=== PATIENT | male | born 1980 | race Caucasian/White ===

== ENCOUNTER 2019-11-07 12:54 | Outpatient (CLI) | payer MEDICAID, SELFPAY ==
--- NOTE | 2019-11-07 15:26 | ONCRAD EPV_ITS ---
Radiation Oncology Established Patient Visit Patient: Rico MR#: [id number] : 1980> Age: 39> Sex: Male> Dictated by: Dr. Charlie Olvera Date of Service: 11/07/2019 Referring Physician(s) : Dr. Zana Yeager Diagnosis: C62.12 - Malignant neoplasm of descended left testis, Diagnosed 10/06/2017 (Active) Stage IS, pT1, N0, M0, S1 Radiotherapy to Date: Course: Lyph Nodes Treatment Site: Initial 20Gy Ref. ID: initial 20Gy Energy: 15X/6X Dose/Fx (cGy): 200 #Fx: 10/10 Dose Correction (cGy): 0 Total Dose (cGy): 2,000 Start Date: 08/21/2018 End Date: 09/03/2018 Elapsed Days: 13 Course: Lyph Nodes Treatment Site: Boost 16Gy Ref. 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 He developed recurrence in a solitary periaortic lymph node and received salvage radiotherapy to a total dose of 36Gy completed on 09/13/2018. The patient has had a good response to radiotherapy. He underwent a CT of abdomen/pelvis on 06/21/2019. It showed a continued decrease in size of the left periaortic lymph node now measuring 8.5 mm compared to 10.5 mm in November 2018. There is no evidence of new or progressive lymphadenopathy. Lung nodules in the right middle lobe and right lung base are stable -- surveillance with chest CT was recommended. The patient noticed a painless golfball-sized lump in the left supraclavicular area about a month ago. He has had sore throat, fever, chills and drenching night sweats but denies significant weight loss. He just finished a course of antibiotics. However the left supraclavicular mass persists with no tenderness. He also notes pain in the left axilla. Current Medications: Levothyroxine Sodium. Allergies: Penicillins and Sulfa Antibiotics. Review of Systems: Constitutional - Complains of lack of appetite. Complains of mild fatigue. Complains of fever off and on for over a month. Complains of night sweats which occur every night. Complains of rigors / chills off and on. Denies change in weight. Eyes - Denies blurred vision. ENMT - Complains of dysphagia, mouth dryness off and on and altered taste. Denies ear pain, stomatitis and tinnitus. Neck - Complains of neck pain and decreased range of motion. Integumentary - Denies rash. Cardiovascular - Denies arrhythmias, chest pain and edema. Respiratory - Complains of a moderate cough which is productive. Complains of dyspnea associated with normal activity. Complains of wheezing. Denies hemoptysis. Gastrointestinal - Complains of abdominal pain located in the lower abdomen occasionally. Complains of intermittent constipation. Complains of nausea. Complains of satiety. Complains of vomiting but it is more like dry heaves. Denies diarrhea, heartburn / dyspepsia and melena / GI bleeding. Genitourinary (M) - Complains of nocturia gets up about 1 time per night. Denies dysuria, frequency, hematuria and urgency. Musculoskeletal - Complains of joint pain in the upper back and shoulders. Complains of generalized muscle weakness. Denies bone pain. Has complaints of left upper arm and axilla pain that is in the muscle. Started in his left side rib cage and now the upper arm. Can't lift left arm up over his shouder. Neurologic - Denies dizziness, abnormal gait and headaches. Endocrine - Complains of thyroid disease. Denies diabetes. Hematologic/Lymphatic - Complains of tender or enlarged lymph nodes left side of the neck. Vital Signs: Performed on 11/07/2019 1:24 PM BMI - 41.446 kg/m2 (high), Height - 62.00 in, Weight - 226.6 lbs, Temperature - 98.7 f, Pulse - 73, Respiration - 20, O2 Sat - 94 % (low), Pain - 7 and BP - 114/ 78 mm(hg). Physical Exam: General: Alert and oriented x 3. No acute distress. HEENT: Normocephalic, atraumatic. Extraocular Movements Intact: Pupils Equal, Round, Reactive to Light and Accommodation: Sclerae anicteric. Oral cavity is clear without lesions, masses or ulcers. NECK: A 4-5cm firm left supraclavicular lump with no tenderness. LUNGS: Clear to auscultation bilaterally without rales, rhonchi or wheeze. HEART: Regular rate and rhythm, normal S1 and S2 without murmur, gallop or rub. MUSCULOSKELETAL: No tenderness or percussion pain over the axial skeleton, scapulae or pelvis. ABDOMEN: Soft, nontender, nondistended without masses or organomegaly. Bowel sounds are present. EXTREMITIES: No peripheral edema is identified. Limited motor and sensory examination are grossly intact and symmetric bilaterally. NEUROLOGIC: Cranial nerves II ???XII are grossly intact. Normal sensation, strength 5/5 in all extremities, normal gait, no ataxia. Performance Status: 2 - Ambulatory/capable of all self-care, unable to perform any work activities. Up and about more than 50% of waking hours. (ECOG) Lab: None pending. Pathology: seminoma of descended left testis Imaging: See HPI Impression: The patient has developed a large painless left supraclavicular mass which is concerning for recurrence of seminoma. Plan: I recommend an ultrasound guided core needle biopsy of the left supraclavicular mass. I will also order a PET/CT for restaging. The patient will follow up with us afterwards. He is instructed to call us and come back to see us earlier if he has any questions or issues. The patient expressed good understanding and agrees with the plan. Signed by: 11/07/2019 3:24:03 PM <<Signature on File>> CPT Code: CPT Code: Signed By: Dr. Charlie Olvera, 11/07/2019 3:24:04 PM <<Signature on File>>
== END 2019-11-07 12:55 | disposition home or self-care (01) ==
LOC: ONCMED 12:58
PROVIDERS: Family Provider Nurse Practitioner; PCP Nurse Practitioner; Visit Provider Radiology Radiation Oncology
DX: R22.1 Localized swelling, mass and lump, neck (principal); Z85.47 Personal history of malignant neoplasm of testis; R91.8 Other nonspecific abnormal finding of lung field; Z92.3 Personal history of irradiation; Z90.79 Acquired absence of other genital organ(s)
CPT/HCPCS: 99214

== ENCOUNTER 2019-11-21 14:10 | Emergency (ER) | payer MEDICAID, SELFPAY | END 2019-11-21 15:19 | PROVIDERS: Emergency Provider Family Medicine; Family Provider Nurse Practitioner; PCP Nurse Practitioner | DX: Z53.21 Procedure and treatment not carried out due to patient leaving prior to being seen by health care provider (principal) | CPT/HCPCS: 99281 ==

== ENCOUNTER 2019-11-25 09:30 | Emergency (ER) | payer MEDICAID, SELFPAY ==
[2019-11-25] VITALS (11 sets, daily range): BP systolic 110–151; BP diastolic 74–91; PULSE 75–95; RESP 16–20; TEMP 36.5; O2SAT 93–99; BMI 28.8
--- NOTE | 2019-11-25 10:58 | ED_ITS ---
Entered by Hollie Leon, acting as scribe for Bran Barker MD HPI - Abdominal Pain General: Chief Complaint: Abdominal Pain Stated Complaint: multiple complaints Time Seen by Provider: 11/25/19 10:58 Source: patient and family Mode of arrival: ambulatory Limitations: no limitations History of Present Illness: HPI narrative: 39 yo male presents to ED with complaints of abdominal pain. The patient has a history of cancer (in his lower abdomen lymph nodes/testicular). The patient's radiology oncologist is Dr Baldwin and his oncologist is Dr Russell. The patient states he has been nauseated, vomiting, having night sweats and complaints of constipation. MD elicited complaint: abdominal pain Pertinent past history: other (testicular cancer) Onset (ago): day(s) (2) Pain Consistency: constant Location: Diffuse Severity: severe Quality: cramping and aching Radiation: none Migration to: no migration Exacerbating factors: nothing Relieving factors: nothing Context: other (history of testicular cancer) Associated Symptoms: Reports constipation, nausea and vomiting Review of Systems General: Reports: 10 or more systems reviewed and unremarkable except in HPI and below Const: Reports: fatigue, malaise, night sweats and daytime sleepiness GI: Reports: abdominal pain (diffuse), nausea, vomiting and constipation Musc: Reports: neck pain (L side and swelling) PFSH ED PFSH: Statuses (acute, chronic, etc) shown below reflect problem list status as previously entered and may not be historically accurate Social History Smoking and tobacco status: current every day smoker Physical Exam Const: COMMON NORMALS: no apparent distress, oriented x3 and healthy appearing HENMT: COMMON NORMALS: normocephalic and head/scalp atraumatic HEAD & SCALP: normocephalic and atraumatic Eye: COMMON NORMALS: PERRL and EOMs intact bilaterally PUPIL: Yes PERRL Neck/C-Spine: COMMON NORMALS: full ROM and supple OTHER: Palpable lymph node in left neck Chest: COMMONS NORMALS: inspection of chest normal and palpation of chest normal Resp: COMMON NORMALS: normal respiratory effort, no retractions, no use of accessory muscles and clear to auscultation bilaterally AUSCULTATION: clear to auscultation bilaterally Cardio: COMMON NORMALS: regular rate, regular rhythm and no murmurs RATE: regular rate RHYTHM: regular rhythm GI: COMMON NORMALS: normal to inspection, nondistended, normoactive bowel sounds, soft to palpation, non-tender and no masses PALPATION: Yes soft Extremity: COMMON NORMALS: normal to inspection and full ROM Neuro: COMMON NORMALS: oriented x3, moves all extremities and no focal motor deficits Psych: COMMON NORMALS: mental status grossly normal, thought process normal and cooperative THOUGHT PROCESS: normal thought process Skin: COMMON NORMALS: no rashes or lesions noted and no wounds GENERAL SKIN EXAM: no rashes or lesions noted Course Vital Signs: Vital signs: Vital Signs Temperature 97.7 F 11/25/19 10:12 Pulse Rate 95 11/25/19 20:20 Respiratory Rate 17 11/25/19 20:20 Blood Pressure 110/79 11/25/19 20:20 Pulse Oximetry 94 11/25/19 20:20 MDM - Abdominal Pain MDM Narrative: Medical decision making narrative: Patient presents here with large mass in his chest that is likely seminoma. I spoke to Dr. Russell about this mass who recommended transfer as he needs emergent radiation. I did speak to oncologist at [facility] and will transfer there. Been waiting for a bed a long time here and patient is getting agitated and states that he knows he needs to go to [place] and just can drive up there. I did inform him that would be better if he waited till he had a bad neck and transferred by ambulance. Patient does have medical decision-making capacity and did sign out AMA here. I believe he is likely going to [place] by informed him he definitely needs to be seen soon as possible and is return to ER if he has any worsening. Lab Data: Labs: Lab Results 11/25/19 11/25/19 Range/Units 11:50 11:50 WBC 8.4 (4.0-10.0) 10^3/ uL RBC 4.54 (4.1-5.3) 10^6/u L Hgb 13.7 (11.7-16.6) g/dL Hct 41.9 L (42.0-52.0) % MCV 92.3 (80-94) fL MCH 30.2 (28.0-34.0) pg MCHC 32.7 (30.0-36.0) g/dL RDW 14.1 (12.1-15.1) % Plt Count 284 (130-400) 10^3/c mm MPV 8.6 (7.4-10.4) fL Neut % (Auto) 81.4 % Lymph % (Auto) 9.7 % Powell % (Auto) 8.2 % Eos % (Auto) 0.0 % Baso % (Auto) 0.5 % Neut # (Auto) 6.8 (1.8-7.7) 10^3/u L Lymph # (Auto) 0.8 (0.8-4.8) 10^3/u L Powell # (Auto) 0.7 (0.2-0.9) 10^3/u L Eos # (Auto) 0.0 (0.0-0.8) 10^3/u L Baso # (Auto) 0.0 (0.0-0.1) 10^3/u L Nucleated RBC % (a uto) 0 % Nucleated RBCs # 0.0 /100WBC Sodium 132 L (136-145) mmol/L Potassium 4.3 (3.5-5.1) mmol/L Chloride 94 L (98-107) mmol/L Carbon Dioxide 22 (22-29) mmol/L Anion Gap 20.3 H (5-19) BUN 8 (6-20) mg/dL Creatinine 0.7 (0.7-1.2) mg/dL GFR Calculation 126.2 (90-130) mL/min Glucose 112 H (74-109) mg/dL Calcium 9.5 (8.5-10.5) mg/dL Total Bilirubin 0.7 (0.15-1.2) mg/dL AST 15 (0-40) U/L ALT 15 (0-41) U/L Alkaline Phosphata se 157 H (40-130) IU/L Total Protein 7.4 (6.6-8.7) g/dL Albumin 4.1 (3.5-5.2) g/dL Globulin 3.3 (1.3-4.6) g/dL Lipase 14 (13-60) U/L Imaging Data ^: CT Abd/Pel: Radiologist's impression: [address] [address] [address] Scan Report Signed Patient: Macario Porter Unit #: [id number] : 1980 Age/Sex: 39 / M ADM Date: 11/25/19 Loc: ER Room/Bed: Attending Dr: Ordering Provider/Ordering MD: Bran Barker MD Date of Service: 11/25/19 Procedure(s): CT abdomen pelvis w con* [id number] Accession Number(s): [id number] Report Number: [id number] WS: [id number] CT ABDOMEN AND PELVIS WITH CONTRAST HISTORY: pain TECHNIQUE: Imaging performed of the abdomen and pelvis with IV contrast. Single phase imaging of the abdomen. Coronal and sagittal reformats are submitted. All CT scans at [facility] use at least one of these dose optimization techniques: automated exposure control; mA and/or kV adjustment per patient size (includes targeted exams where dose is matched to clinical indication); or iterative reconstruction. IV CONTRAST: Omnipaque 300; 95 mL IV. Oral contrast: No DLP: 1125.55 mGy.cm COMPARISON: 06/21/2019 Lower thorax: Stable subcentimeter nodules at the RIGHT lung base. There is a large mass circumferentially surrounding the distal thoracic aorta and displacing the esophagus anteriorly and splaying the pulmonary veins. This mass is of variable density and incompletely visualized as it extends into the mediastinum. Mass measures 9 cm transversely and 8.8 cm anterior posterior. Heart size is normal. There is mass effect upon the LEFT atrium. Small hiatal hernia and a small amount of fluid in the distal esophagus. Liver/biliary system: Normal size with no intrahepatic dilatation. Gallbladder: Normal. No gallstones or wall thickening. No pericholecystic fluid. Pancreas: Normal. Spleen: Normal. Adrenal glands: Normal. Right kidney: Normal. Left kidney: Normal. Aorta: Normal. Lymphadenopathy: None. Free fluid: None. GI tract: Appendix is normal. No GI tract obstruction. Abdominal wall: Unremarkable abdominal wall. No hernia. Pelvis: Normal. Bones: Unremarkable. Notified Bran Barker MD at 11/25/2019 12:[address]/CT abdomen pelvis w con* [id number] IMPRESSION: 1. Large soft tissue mass in the posterior mediastinum encasing the distal thoracic aorta with anterior displacement of the esophagus and LEFT atrium. Differential includes lymphadenopathy from patient's known seminoma, mediastinal hematoma and possible ruptured aorta. 2. No abdominal or pelvic adenopathy. Dictated By: Felipa Busch DO Signed By: Felipa Busch DO Signed Date/Time: 11/25/19 1242 DD/ Other CT: Radiologist's impression: [facility] [address] [place] [address] CT Scan Report Signed Patient: Macario Porter Unit #: [id number] : 1980 Age/Sex: 39 / M ADM Date: 11/25/19 Loc: ER Room/Bed: Attending Dr: Ordering Provider/Ordering MD: Bran Barker MD Date of Service: 11/25/19 Procedure(s): CT neck w con* [id number] Accession Number(s): [id number] Report Number: [id number] WS: [id number] CT NECK WITH CONTRAST HISTORY: pain TECHNIQUE: Contiguous 5 mm axial images are performed through the neck with intravenous contrast. Sagittal and coronal reformats are also submitted. All CT scans at [facility] use at least one of these dose optimization techniques: automated exposure control; mA and/or kV adjustment per patient size (includes targeted exams where dose is matched to clinical indication); or iterative reconstruction. CONTRAST: CONTRAST: Omnipaque 300; 95 mL IV. DLP: 784.97 mGy.cm COMPARISON: None available. Imaging through the skull base negative. Large lobulated soft tissue mass with variable density and central necrosis in the LEFT supraclavicular region measures 5.9 x 4.6 cm. There are additional smaller adjacent nodules which are probably lymph nodes. Mass is lateral to the carotid artery and posterior to the sternocleidomastoid muscle and extends into the upper thorax. There is a large mediastinal mass of variable density beginning at the level of the aortic arch. Mass is posterior to the aorta and variable density with displacement of the trachea and esophagus to the RIGHT. This mass encases the aorta. This mass is contiguous with the described soft tissue mass seen on the abdomen CT. There is overlying the pulmonary arteries. Lung apices are clear. Notified Bran Barker MD at 11/25/2019 12:[address]/CT neck w con* [id number] IMPRESSION: 1. Large heterogeneous mass in the posterior mediastinum encasing descending thoracic aorta with displacement of the pulmonary arteries, trachea and esophagus. Differential includes adenopathy, metastatic seminoma and neoplasm. Aortic injury with bleeding into the mediastinum should also be considered. 2. Necrotic mass in the LEFT supraclavicular region consistent with adenopathy. Dictated By: Felipa Busch DO Signed By: Felipa Busch DO Signed Date/Time: 10/31 05/18 1242 DD/ CT Chest: Radiologist's impression: [facility] [address] [place] [address] CT Scan Report Signed Patient: Macario Porter Unit #: [id number] : 1980 Age/Sex: 39 / M ADM Date: 11/25/19 Loc: ER Room/Bed: Attending Dr: Ordering Provider/Ordering MD: Bran Barker MD Date of Service: 11/25/19 Procedure(s): CT chest w con* [id number] Accession Number(s): [id number] Report Number: [id number] WS: [id number] CT CHEST WITH INTRAVENOUS CONTRAST HISTORY: Mediastinal mass. TECHNIQUE: Contiguous 5 mm axial imaging performed on the thorax. Coronal and sagittal reformats are submitted. All CT scans at [facility] use at least one of these dose optimization techniques: automated exposure control; mA and/or kV adjustment per patient size (includes targeted exams where dose is matched to clinical indication); or iterative reconstruction. CONTRAST: Omnipaque 300; 95 mL IV. DLP: 986.35 mGy.cm COMPARISON: 02/19/2018 and 05/21/2018 Lungs and central airway: There are multiple partially calcified nodules throughout the lungs which have been present on multiple prior examinations. No new pulmonary nodule or suspicious masses are identified. No pneumonia. Pleura: Normal. No pleural effusion. Heart and pericardium: Normal size heart. LEFT atrium is being displaced anteriorly by a large mediastinal mass. Mediastinum and rosy: There is a very large mediastinal mass beginning at the level of the aortic arch and extending inferiorly and contiguous by 14 cm. This mass encases the descending thoracic aorta and encases the LEFT mainstem bronchus and esophagus. There is displacement of the trachea and esophagus to the RIGHT. Anterior displacement of the heart and pulmonary arteries and veins. Partial encasement of the proximal LEFT lower lobe pulmonary arteries. Transverse diameter of the mass is 9.7 cm x 8.1 cm anterior posterior. Esophagus is being obliterated. Mass extends to about the thoracic vertebral bodies Chest wall and lower neck: There is a LEFT supraclavicular mass which is better identified on the neck CT previously done. No axillary lymph nodes. No anterior mediastinal adenopathy. Upper abdomen: Negative. Osseous structures: No destructive process. CT/CT chest w con* [id number] IMPRESSION: 1. Large posterior mediastinal mass encasing the descending aorta measures 14.0 x 9.7 x 8.1 cm. Suspect adenopathy or lymphoma. 2. 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 3. Mass effect upon the mediastinal structures as above. Dictated By: Felipa Busch DO Signed By: Felipa Busch DO Signed Date/Time: 11/25/19 1421 DD/ Discharge Plan Discharge Patient Disposition: Left Against Medical Advice Clinical Impression: Mass in chest Prescriptions: No Action tizanidine 4 mg Tablet 4 mg PO BID PRN (Reason: Spasms) RF: 0 levothyroxine 150 mcg Tablet 150 mcg PO DAILY RF: 0 Cymbalta 30 mg Capsule,Delayed Release(Dr/Ec) 30 mg PO BID RF: 0 Referrals: Mike Olvera, REFRIGERATION SUPERVISOR-C [Primary Care Provider] - Interventions: ED Discharge Assessment Last Done: 11/25/19 20:20 Discharge Date/Time: 11/25/19 20:21 Coding Level of Care Code ED 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
--- NOTE | 2019-11-25 11:04 | CT_ITS ---
WS: [id number] CT ABDOMEN AND PELVIS WITH CONTRAST HISTORY: pain TECHNIQUE: Imaging performed of the abdomen and pelvis with IV contrast. Single phase imaging of the abdomen. Coronal and sagittal reformats are submitted. All CT scans at [facility] use at least one of these dose optimization techniques: automated exposure control; mA and/or kV adjustment per patient size (includes targeted exams where dose is matched to clinical indication); or iterativ e reconstruction. IV CONTRAST: Omnipaque 300; 95 mL IV. Oral contrast: No DLP: 1125.55 mGy.cm COMPARISON: 06/21/2019 Lower thorax: Stable subcentimeter nodules at the RIGHT lung base. There is a large mass circumferent ially surrounding the distal thoracic aorta and displacing the esophagus anteriorly and splaying the pulmonary veins. This mass is of variable density and incompletely visualized as it extends into the mediastinum. Mass measures 9 cm transversely and 8.8 cm anterior posterior. Heart size is normal. The re is mass effect upon the LEFT atrium. Small hiatal hernia and a small amount of fluid in the distal esophagus. Liver/biliary system: Normal size with no intrahepatic dilatation. Gallbladder: Normal. No gallstones or wall thickening. No pericholecystic fluid. Pancreas: Normal. Spleen: Normal. Adrenal glands: Normal. Right kidney: Normal. Left kidney: Normal. Aorta: Normal. Lymphadenopathy: None. Free fluid: None. GI tract: Appendix is normal. No GI tract obstruction. Abdominal wall: Unremarkable abdominal wall. No hernia. Pelvis: Normal. Bones: Unremarkable. Notified Bran Barker MD at 11/25/2019 12:[address]/CT abdomen pelvis w con* [id number] IMPRESSION: 1. Large soft tissue mass in the posterior mediastinum encasing the distal tho racic aorta with anterior displacement of the esophagus and LEFT atrium. Differ ential includes lymphadenopathy from patient's known seminoma, mediastinal jaci roger and possible ruptured aorta. 2. No abdominal or pelvic adenopathy.
--- NOTE | 2019-11-25 11:04 | CT_ITS ---
WS: [id number] CT NECK WITH CONTRAST HISTORY: pain TECHNIQUE: Contiguous 5 mm axial images are performed through the neck with intravenous contrast. Sag ittal and coronal reformats are also submitted. All CT scans at [facility] use at least o ne of these dose optimization techniques: automated exposure control; mA and/or kV adjustment per pat ient size (includes targeted exams where dose is matched to clinical indication); or iterative recons truction. CONTRAST: CONTRAST: Omnipaque 300; 95 mL IV. DLP: 784.97 mGy.cm COMPARISON: None available. Imaging through the skull base negative. Large lobulated soft tissue mass with variable density and c entral necrosis in the LEFT supraclavicular region measures 5.9 x 4.6 cm. There are additional smalle r adjacent nodules which are probably lymph nodes. Mass is lateral to the carotid artery and posterio r to the sternocleidomastoid muscle and extends into the upper thorax. There is a large mediastinal mass of variable density beginning at the level of the aortic arch. Mass is posterior to the aorta and variable density with displacement of the trachea and esophagus to the RIGHT. This mass encases the aorta. This mass is contiguous with the described soft tissue mass seen on the abdomen CT. There is overlying the pulmonary arteries. Lung apices are clear. Notified Bran Barker MD at 11/25/2019 12:[address]/CT neck w con* [id number] IMPRESSION: 1. Large heterogeneous mass in the posterior mediastinum encasing descending t horacic aorta with displacement of the pulmonary arteries, trachea and esophagu s. Differential includes adenopathy, metastatic seminoma and neoplasm. Aortic i njury with bleeding into the mediastinum should also be considered. 2. Necrotic mass in the LEFT supraclavicular region consistent with adenopathy .
--- NOTE | 2019-11-25 11:05 | PC.NURSE ---
Patient reports that he has been sick for about 3 months. Patient states that he started off with just a sinus infection. Patient reports that now he has had left sided abdominal pain. Patient also reports that he has had a knot to the left side of his neck. Patient states that he has been seeing his oncologist for. Patient reports that he was suppose to have a scan but was unable to due to the patient being sick. Patient also states that he has bee unable to keep anything down. Patients states he has been very lethargic.
[2019-11-25] MEDS: iohexol 300 mg/mL 100 mL Btl IV ×3 (11:37→13:40)
[2019-11-25] MEDS: ondansetron 2 mg/ML SDV 2 mL 4 MG IVP ×3 (11:48→18:51)
[2019-11-25] MEDS: morphine 4 mg/mL SDV 1 mL IVP ×4 (11:48→19:16)
[2019-11-25 11:56] LABS: Basophils % 0.5 %; Hematocrit 41.9 % (42.0-52.0); Hemoglobin 13.7 g/dL (11.7-16.6); Lymphocytes # 0.8 10^3/uL (0.8-4.8); Lymphocytes % 9.7 %; Mean Corpuscular HGB Conc 32.7 g/dL (30.0-36.0); Mean Corpuscular Hemoglobin 30.2 pg (28.0-34.0); Mean Corpuscular Volume 92.3 fL (80-94); Mean Platelet Volume 8.6 fL (7.4-10.4); Monocytes # 0.7 10^3/uL (0.2-0.9); Monocytes % 8.2 %; Neutrophils # 6.8 10^3/uL (1.8-7.7); Neutrophils % 81.4 %; Nucleated Red Blood Cells % 0 %; Platelet Count 284 10^3/cmm (130-400); Red Blood Count 4.54 10^6/uL (4.1-5.3); Red Cell Distribution Width 14.1 % (12.1-15.1); White Blood Count 8.4 10^3/uL (4.0-10.0)
[2019-11-25 12:47] LABS: Alanine Aminotransferase 15 U/L (0-41); Albumin Level 4.1 g/dL (3.5-5.2); Alkaline Phosphatase 157 IU/L (40-130); Anion Gap 20.3 (5-19); Aspartate Amino Transferase 15 U/L (0-40); Blood Urea Nitrogen 8 mg/dL (6-20); Calcium 9.5 mg/dL (8.5-10.5); Carbon Dioxide 22 mmol/L (22-29); Chloride 94 mmol/L (98-107); Globulin 3.3 g/dL (1.3-4.6); Glomerular Filtration Rate 126.2 mL/min (90-130); Glucose 112 mg/dL (74-109); Lipase 14 U/L (13-60); Potassium 4.3 mmol/L (3.5-5.1); Sodium 132 mmol/L (136-145); Total Bilirubin 0.7 mg/dL (0.15-1.2); Total Protein 7.4 g/dL (6.6-8.7)
--- NOTE | 2019-11-25 12:54 | CT_ITS ---
WS: [id number] CT CHEST WITH INTRAVENOUS CONTRAST HISTORY: Mediastinal mass. TECHNIQUE: Contiguous 5 mm axial imaging performed on the thorax. Coronal and sagittal reformats are submitted. All CT scans at [facility] use at least one of these dose optimization techniq ues: automated exposure control; mA and/or kV adjustment per patient size (includes targeted exams wh ere dose is matched to clinical indication); or iterative reconstruction. CONTRAST: Omnipaque 300; 95 mL IV. DLP: 986.35 mGy.cm COMPARISON: 02/19/2018 and 05/21/2018 Lungs and central airway: There are multiple partially calcified nodules throughout the lungs which h ave been present on multiple prior examinations. No new pulmonary nodule or suspicious masses are сергей ntified. No pneumonia. Pleura: Normal. No pleural effusion. Heart and pericardium: Normal size heart. LEFT atrium is being displaced anteriorly by a large medias tinal mass. Mediastinum and rosy: There is a very large mediastinal mass beginning at the level of the aortic arc h and extending inferiorly and contiguous by 14 cm. This mass encases the descending thoracic aorta a nd encases the LEFT mainstem bronchus and esophagus. There is displacement of the trachea and esophag us to the RIGHT. Anterior displacement of the heart and pulmonary arteries and veins. Partial encasem ent of the proximal LEFT lower lobe pulmonary arteries. Transverse diameter of the mass is 9.7 cm x 8 .1 cm anterior posterior. Esophagus is being obliterated. Mass extends to about the thoracic vertebra l bodies Chest wall and lower neck: There is a LEFT supraclavicular mass which is better identified on the nec k CT previously done. No axillary lymph nodes. No anterior mediastinal adenopathy. Upper abdomen: Negative. Osseous structures: No destructive process. CT/CT chest w con* [id number] IMPRESSION: 1. Large posterior mediastinal mass encasing the descending aorta measures 14. 0 x 9.7 x 8.1 cm. Suspect adenopathy or lymphoma. 2. 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 3. Mass effect upon the mediastinal structures as above.
[2019-11-25] MEDS: HYDROmorphone 1 mg/mL INJ 1 mL IVP (14:49)
[2019-11-25] MEDS: nicotine 21 mg Patch 1 PATCH TRANSDERMA (19:29)
== END 2019-11-25 20:21 | disposition left against medical advice (07) ==
PROVIDERS: Emergency Provider Emergency Medicine; Family Provider Nurse Practitioner; PCP Nurse Practitioner
DX: R22.2 Localized swelling, mass and lump, trunk (principal); Z53.21 Procedure and treatment not carried out due to patient leaving prior to being seen by health care provider; F17.210 Nicotine dependence, cigarettes, uncomplicated
CPT/HCPCS: 36415; 70491; 71260; 74177; 80053; 83690; 85025; 96374; 99281; J1170; J2270; J2405; Q9967

== ENCOUNTER 2019-12-05 13:56 | Outpatient (RCR) | payer MEDICAID, SELFPAY ==
--- NOTE | 2019-12-05 20:48 | ONC CON_ITS ---
Dr. Russell New Patient Note Patient: Macario Porter Unit #: [id number]: [id number] Dicatated By: Allen Russell M.D.Date of Visit: Dec 05, 2019 Onc MED New Patient/Consult Referring Physician: Dr. Zana Yeager M.D. Chief Complaint: Testicular cancer. History of Present Illness: This is a 39 year-old man with classic seminoma involving the left testicle, by clinical evaluation his disease was stage IS (pT1, N0, M0, S1) at initial diagnosis, but with subsequent progression to stage IIIB (pT1, N1, M1a). . On 09/20/2017 he presented to the emergency room with pain in the left testicle, which had been getting worse over a couple of months. He also could feel a hard spot in the testicle. Testicular ultrasound showed enlarged left testicle measuring 5.8 x 4.6 x 5.8 cm with diffusely heterogeneous appearance, worrisome for neoplasm. His chest x-ray was unremarkable. He was referred to Dr. Yeager. On 09/25/2017 he underwent left radical orchiectomy. He tolerated the procedure well. His preoperative tumor markers included LDH mildly elevated at 335/241 U/L, AFP 4.3 ng/ML, and beta hCG < 1 mIU/mL. His staging CT abdomen/pelvis on 09/28/2017 showed subcentimeter retroperitoneal lymph nodes. The largest was in the para-aortic area and measured 9 mm. Also noted were multiple subcentimeter nodules at the right lung base, metastasis not excluded. There was a 2 cm lytic area without associated bone destruction in the left ilium. This was thought to most likely represent a benign lesion. Pathology showed an enlarged testis measuring 7.1 x 4.7 cm. The parenchyma was almost completely effaced by tumor measuring 6.9 x 4.5 cm. The tunica was noted to be intact. Histology showed germ cell neoplasm felt to be most consistent with classic seminoma with a component of IGCN. The immunoperoxidase panel showed that the tumor was positive for CD-117, PLAP, and OCT 3/4. It was negative for alpha-fetoprotein, inhibin, CK-cocktail, SCOTT, CD-34, and CEA. The beta hCG showed scattered rare positive cells. I had seen him initially on 10/06/2017. We discussed the possibility of immediate, short course adjuvant chemotherapy versus active surveillance. He opted for surveillance. He completed his staging with PET/CT on 11/27/2017. It showed a single left external iliac lymph node felt to most likely represent postoperative inflammatory changes. There was no other lymphadenopathy noted. Bilateral subcentimeter pulmonary nodules showed no focal increase in FDG activity and were felt to be intermediate for metastatic involvement. A focus of increased metabolic activity in the left thyroid lobe anteriorly appeared to be associated with a nodular density, and it was felt to be suspicious for neoplasia. Given those findings, he continued active surveillance was recommended for the seminoma. He was seen by Dr. Lackey in regard to the thyroid nodules. FNA biopsies of a 2.0 cm right thyroid nodule and a 1.4 cm left thyroid nodule both showed indeterminate cytopathology. They were ultimately confirmed to be benign. His surveillance CT scans of chest, abdomen, and pelvis on 05/21/2018 showed stable bilateral lung nodule. However, the abdomen/pelvis showed interval development of nonenlarged periaortic lymph node measuring 1.7 cm. The appearance was suspicious for metastatic involvement. He was seen for a follow-up visit on 06/12/2018. He was not overtly symptomatic. A follow-up CT of the abdomen/pelvis on 06/20/2018 showed progressive enlargement of the left periaortic lymph node, at that point measuring 2.5 x 2.2 cm. As it was clearly enlarging and indicative of metastatic disease, he was advised to undergo chemotherapy with 4 cycles of etoposide/cisplatin. However, as he wished to avoid chemotherapy if at all possible, he was given the option to have treatment with radiation as an alternative. He then completed radiation to periaortic lymph nodes on 09/13/2018 to a total dose of 3600 cGy. He continued follow-up with Dr. Olvera after the radiation. His surveillance CT abdomen/pelvis on 06/21/2019 showed residual left periaortic lymph node measuring 8.5 mm compared to 10.5 mm on the prior study from November 2018. Lung nodules in the right middle lobe and at the right lung base also appeared stable. There were no other interval changes reported. Chest x-ray on 10/16/2019 showed no concerning abnormalities. On 11/07/2019 he had presented with an obvious mass in the left supraclavicular area. At that point Dr. Olvear had recommended further evaluation with PET/CT and with needle biopsy of the supraclavicular mass. Neither of these were done. On 11/25/2019 he presented to the emergency room with multiple complaints, including chest pain, shortness of breath, and difficulty swallowing. His neck CT at that time showed a large heterogeneous mass in the posterior mediastinum encasing the descending thoracic aorta and with displacement of the pulmonary arteries, trachea, and esophagus. There was a necrotic mass in the left supraclavicular region measuring 5.9 x 4.6 cm consistent with adenopathy. On the chest CT the mediastinal mass was noted to measure 14.0 x 9.7 x 8.1 cm. Numerous calcified and partially calcified pulmonary nodules appeared stable. There was no evidence of disease progression in the abdomen/pelvis. He was transferred to [facility] for admission. His further evaluation there included needle biopsy of the supraclavicular mass, which should confirm recurrent seminoma. His tumor markers included elevated LDH at 1094 units/L, AFP 2.5 ng/mL, and mildly elevated beta-hCG at 5.3 mIU/mL. TTE showed low normal systolic function and external pressure and of the left atrium from the mediastinal mass. Brain MRI was normal. Pulmonary function studies showed FEV1 at 57% of predicted. The DLCO was low at 57%, but was at 78% when adjusted for alveolar volume. He was discharged with instructions to follow-up here for chemotherapy. He has had no other ongoing medical illnesses, and he has had no other surgeries. He has a history of smoking 1 pack of cigarettes daily for more than 20 years. He has been trying to quit. He is seen for a follow-up visit. He has very limited activity. ECOG score is 3. Appetite is very poor. He has lost some weight. He has had low-grade fever, which comes and goes. He has had chills and sweating, especially at night. He still has some difficulty swallowing. He has shortness of breath and he has cough productive of white sputum. He is having pain in the substernal area. He has had a lot of nausea/vomiting and he has been having pain in his left upper quadrant area. He also has had some constipation. Bladder function remains adequate. He has pain in the neck area, baby is not having any other joint or bone pain. He has no focal neurologic symptoms. Past Medical History: He has had no other ongoing medical illnesses. Past Surgical History: His surgical/procedural history includes arthroscopic right knee surgery in 2019, thyroidectomy in 2018, and left radical orchiectomy in 2017. Medications: Cymbalta 1 (20 mg) Capsule Delayed Release Particles Oral daily, Levothyroxine Sodium 1 Tablet (of 150 mcg) Oral daily, Prochlorperazine Maleate 1 Tablet (of 10 mg) Oral t.i.d. PRN, tiZANidine HCl 1 (4 mg) Tablet Oral q 4 hours PRN, Zofran 1 Tablet (of 4 mg) Oral q 8 hours PRN Allergies: Penicillins and Sulfa Antibiotics. Social History: Mr. Porter is . He has history of smoking 1 pack of cigarettes daily for 21 years. He has had just occasional alcohol use. Family History: Both parents and 2 siblings are in good health. Review Of Symptoms: Constitutional - He is not feeling good. He is not doing much at home. His appetite is poor and his weight is down. He has an occasional low-grade fever. He has chills and sweating, especially at night. ECOG score is 3, ENMT - No sinus congestion/drainage. No mouth sores. He has sore throat. He has some difficulty swallowing, Hematologic/Lymphatic - No abnormal bruising or bleeding, Respiratory - His breathing is shallow. He has a cough that produces white phlegm. No pleuritic pain or hemoptysis. He continues to smoke, Cardiovascular - He has pain in the center of his chest. No palpitations, Gastrointestinal - He has nausea/vomiting in the mornings. He has heartburn and acid reflux. No diarrhea or constipation. No blood in the stool or black stools. He has abdominal pain in his left upper quadrant, Genitourinary (M) - No dysuria or hematuria. No urinary frequency. No urgency or incontinence, Musculoskeletal - He has pain in the left side if his neck, Integumentary - No skin complications, Neurologic - No headache or dizziness. He has tingling in his throat, Psychiatric - No anxiety or depression. He is not sleeping well at night. Vital Signs: Performed on Dec 05, 2019 14:15: 7, 38.52 (HIGH), 1.95 sq.m, 62.00 in, 100 %, 103 /min (HIGH), 26 /min, 115/74 mm(hg), 97.6 F (LOW), 210.6 lbs (LOW), and Performed on Sep 11, 2018 10:50: . Physical Examination: Constitutional - He looks pale and he appears generally weak, Eyes - Sclerae nonicteric. Conjunctivae clear, ENMT - No lesions noted in the oral cavity, Hematologic/Lymphatic - There is a large mass in the left supraclavicular fossa. There is no axillary adenopathy noted, Respiratory - Lungs show slightly coarse breath sounds bilaterally, Cardiovascular - Heart rhythm is regular. There is no murmur, gallop, or rub noted, Abdomen - Soft. Liver and spleen are not enlarged. There is no abdominal mass noted and there is no obvious ascites. There is no inguinal adenopathy, Extremities - No edema, Neurologic - No focal neurologic deficits noted. Impression: 1. Patient with classic seminoma involving the left testicle. By clinical evaluation, his disease appeared to be stage IS (pT1, N0, M0, S1) at initial diagnosis in in August 2017. 2. He underwent left radical orchiectomy on 09/25/2017. His preoperative tumor markers showed mildly elevated LDH with normal alpha-fetoprotein and beta-hCG levels. 3. His staging PET/CT showed bilateral subcentimeter pulmonary nodules which were FDG negative and indeterminate for metastatic disease. A left thyroid nodule was suspicious for neoplasia. On further evaluation by Dr. Lackey he was found to have bilateral thyroid nodules, both of which showed indeterminate cytopathology on FNA biopsy. These were ultimately determined to be benign. 4. He was intially followed on active surveillance. His restaging CT scans of the chest, abdomen, and pelvis on 05/21/2018 showed stable bilateral pulmonary nodules, but there was interval development of a 1.7 cm left periaortic lymph node. 5. A follow-up CT abdomen/pelvis on 06/20/2018 showed further enlargement of the left periaortic lymph node, at that point measuring 2.5 x 2.2 cm. The appearance was clearly consistent with metastatic disease, which changed his disease to stage IIA (pT1, cN1, M0, S1). He opted to have treatment with radiation, completed on 09/13/2018 to a total dose of 3600 cGy. 6. On 11/07/2019 he presented with a left supraclavicular mass. PET/CT and needle biopsy were recommended, but not completed. On 11/25/2019 he was admitted to [facility] after presenting to the emergency room with shortness of breath and difficulty swallowing. He had CT evidence of left supraclavicular mass measuring 5.9 x 4.6 cm and mediastinal mass measuring 14.0 x 9.7 x 8.1 cm. Needle biopsy of the mass confirmed recurrent seminoma. As such, his disease is now stage IIIB (pT1, N1, M1a). Plan: He has had obvious recurrence/progression of the seminoma. He is significantly symptomatic. He is recommended now to undergo chemotherapy with 4 cycles of cisplatin/etoposide, which I think is preferable to 3 cycles of BEP given his smoking history. He will need to undergo placement of Port-A-Cath venous access device for the chemotherapy administration, and I am arranging for that with Dr. Jacob. I am tentatively planning to begin his first cycle of chemotherapy on Monday. Signed By: Allen Russell M.D. <<Signature on File>>
== END 2019-12-05 13:57 | disposition home or self-care (01) ==
LOC: ONCMED 13:56
PROVIDERS: Family Provider Nurse Practitioner; PCP Nurse Practitioner; Visit Provider Internal Medicine Medical Oncology
DX: C62.12 Malignant neoplasm of descended left testis (principal); C77.0 Secondary and unspecified malignant neoplasm of lymph nodes of head, face and neck; R91.8 Other nonspecific abnormal finding of lung field; F17.210 Nicotine dependence, cigarettes, uncomplicated; K59.00 Constipation, unspecified; E89.0 Postprocedural hypothyroidism; Z92.3 Personal history of irradiation; Z90.79 Acquired absence of other genital organ(s)
CPT/HCPCS: 99215

== ENCOUNTER 2019-12-06 11:00 | Day surgery (SDC) | payer MEDICAID, SELFPAY ==
[2019-12-05 17:25] VITALS: BMI 28.8
--- NOTE | 2019-12-06 | SCC_ITS ---
Procedure Done: Right subclavian Port-A-Cath placement 14.2 seconds of fluoroscopic guidance, for a cumulative dose of 4.66 mGy, was provided to Dr. Jacob by the radiology department. C-arm images of the chest were saved for the patient's permanent record. [facility]
[2019-12-06 11:25] VITALS: BP 122/89; PULSE 106; RESP 18; TEMP 36.4; O2SAT 97
--- NOTE | 2019-12-06 11:28 | SC_ITS ---
WS: [id number] C-arm fluoroscopy of the right upper chest for central venous catheter placement, 12/06/2019 Clinical Data: port placement Comparison: PA and lateral chest, 10/16/2019. Findings: The right subclavian catheter has been inserted and appears to end in the superior vena cava. No pneu mothorax is seen. SC/C-arm FL for CVA [id number] Impression: Insertion of right central venous catheter.
--- NOTE | 2019-12-06 11:30 | PM.HPUD ---
H&P update H&P Update: DATE OF SURGERY/PROCEDURE: 12/06/19 DATE H&P PERFORMED: 12/05/19 H&P UPDATE INFORMATION: H&P completed within last 30 days and No changes to prior documentation PREOP DIAGNOSIS: Testicular cancer PLANNED PROCEDURE: Operation Date: 12/06/19 12:20 Proposed Procedures p Portacath Placement 00427 C62.12(Not Applicable) - Jono Jacob MD Full H&P Perinent History: Medical/Surgical History: Medical History (Updated 12/05/19 @ 16:37 by Jono Jacob MD) Testicular cancer (Acute) Family History: Family History (Updated 12/05/19 @ 15:08 by Talia Trinh RN) Denies family history of Anesthesia complication Bleeding disorder Social History: Social History Smoking and tobacco status: current every day smoker
--- NOTE | 2019-12-06 11:33 | ANES.PREANE2 ---
Pre-Anesthetic Assessment Pre-Anesthetic Assessment: Height/Weight: Height 1.83 m Weight 96.615 kg Preop Diagnosis: Testicular cancer Proposed Procedure: Operation Date: 12/06/19 12:20 Proposed Procedures p Portacath Placement 52225 C62.12(Not Applicable) - Jono Jacob MD Last intake: Intake Last Liquid Date 12/06/19 Last Liquid Time 08:00 Last Solid Date 12/05/19 Last Solid Time 14:00 Social: Packs per day: 1 Pack years: 24 Exam: Pre-Anes Outpt Exam: alert, oriented x 3, clear to auscultation bilaterally and regular rate & rhythm Airway: Submandibular: WNL Cervical ROM: WNL MP: 1 Musc/skel: Musc/skel: Lower Back Pain Comments: nonradiating Anesthetic Plan: ASA status: 3 PFSH Anesthesia PFSH: Social History Smoking and tobacco status: current every day smoker Data Anesthesia Cardiac Studies: No Data to Display
[2019-12-06] MEDS: sodium chloride 0.9% 1,000 ML 30 ML IV (11:49)
[2019-12-06] MEDS: clindamycin 900 MG/50 ML PREMIX 100 MG IV (11:50)
[2019-12-06] MEDS: lidocaine 2% INJ 20 mL INJECTION (12:10)
[2019-12-06] MEDS: heparin, porcine 1,000 unit/mL INJ 10 mL 10000 UNIT INJECTION (12:23)
[2019-12-06 12:45] VITALS: BP 106/83; PULSE 91; RESP 18; TEMP 36.3; O2SAT 100
--- NOTE | 2019-12-06 12:47 | P.OP_ITS ---
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 Russell yesterday , patient was scheduled for surgery today to undergo Port-A-Cath placement . plan of care; After thorough history physical examination and reviewing the chart, I counseled the patient for Port-A-Cath placement, indications, risks including pneumothorax and injury of major vascular structures, benefits, and alternatives were all discussed with the patient, patient understands and is interested to proceed. Informed consent per chart Assurance and education All questions have been answered Procedure: Patient was identified in the holding area and taken to the operative room and placed in supine position IV propofol was given by the anesthesia provider ,both arms were tucked,Time-out was done verifying the patient's name/date of /planned procedure and destination after the procedure, all were in agreement. SCDs confirmed to be functioning, preoperative antibiotics administered per protocol, and beta charles protocol was confirmed, appropriate positioning of the patient was done by me. Medications were reviewed to assess for anticoagulant usage. Risks and benefits and prevention of central line associated blood stream infection (CLABSI) were discussed with the patient/CPOA, and a consent was obtained. Monitors were in place and monitored throughout the procedure. All necessary supplies were available prior to start. Hand hygiene was completed prior to starting. Maximum barrier technique was utilized including a sterile gown, sterile gloves with a hat and mask. Site was was prepped with [chlorhexidine] and a full body drape was placed. 5 mL of 2% lidocaine was injected into the skin with a 25 gauge needle. Prep& drape was done under the usual sterile technique, lidocaine 2% was injected at the site of the stick, started by right subclavian stick that retrieved venous blood was obtained from the first stick, a guidewire was then threaded and under the guidance of fluoroscopy position was confirmed to be in the IVC and my interpretation, there was no PVC changes, at that point the guidewire was secured to the drapes with a hemostat and the needle was taken out, attention was then deviated towards creation of a pocket for the port were lidocaine 2% was injected using an 15 blade knife skin incision was created dissection using the Bovie to create a pocket for the Port-A-Cath to be accommodated, hemostasis was secured, after the port being appropriately flushed it was inserted into the pocket and a tunneler was used to accommodate the catheter of the port cath to be delivered through the incision first created at the site of the stick, at that point under fluoroscopy an estimated length was measured for the catheter and was cut at the designed level, followed by that a dilator with the sheath introduced onto the guidewire the dilator and the wire were retrieved and the catheter of the port was introduced via the sheath where it was peeled off and the catheter maintained to be in the SVC that was confirmed with fluoroscopy, and the fluoroscopy interpretation was done by me throughout the entire procedure. The port was secured to the fascia with using Prolene sutures, 4-0 Vicryl deep subdermal interrupted sutures, skin was then closed by 4-0 Monocryl as subcuticular closure. The stick site was closed by 4-0 Monocryl and Dermabond was used followed by dressing. Patient tolerated the procedure well was taken to the recovery area Count was correct at the end of the procedure I was present for the whole entire procedure Position of the catheter was checked with a postoperative chest x-ray and it was in good position without evidence of pneumothorax
--- NOTE | 2019-12-06 12:47 | XR_ITS ---
WS: [id number] Portable AP upright chest, 12/06/2019 Clinical Data: Status post right subclavian Port-A-Cath placement Comparison: PA and lateral chest, 10/16/2019 Findings: No nodules, masses or effusions are seen. Mediastinum is enlarged. The heart is normal. The pulmonary vascularity is not increased. No pneumonia or pneumothorax is seen. The right subclavian c atheter ends in the right atrium. The aortic arch and descending aorta show tortuosity. XR/XR chest 1V portable [id number] Impression: 1. Satisfactory insertion of right subclavian catheter. 2. Mediastinal enlargement.
[2019-12-06 13:00] VITALS: BP 117/82; PULSE 97; RESP 18; TEMP 36.6; O2SAT 97
--- NOTE | 2019-12-06 13:56 | SUR.PHASEII ---
[id number] Homa(onc nurse) notified of pt's port placement today and verbalized understanding
== END 2019-12-06 13:20 | disposition home or self-care (01) ==
PROVIDERS: Family Provider Nurse Practitioner; PCP Nurse Practitioner; Visit Provider Surgery
PROC: (CPT 36561; principal; 2019-12-06 12:00)
DX: C62.12 Malignant neoplasm of descended left testis (principal); F17.210 Nicotine dependence, cigarettes, uncomplicated
CPT/HCPCS: 36561; 12345; 71045; 76000; 77001; C1788; J1644; J2001; J2250; J2405; J2704; J3010; J3490; J7030

== ENCOUNTER 2019-12-09 08:06 | Outpatient (RCR) | payer MEDICAID, SELFPAY ==
[2019-12-09 08:56] LABS: Basophils % 0.4 %; Eosinophils # 0.1 10^3/uL (0.0-0.8); Eosinophils % 1.5 %; Hematocrit 37.1 % (42.0-52.0); Hemoglobin 12.5 g/dL (11.7-16.6); Lymphocytes # 0.6 10^3/uL (0.8-4.8); Lymphocytes % 8.6 %; Mean Corpuscular HGB Conc 33.7 g/dL (30.0-36.0); Mean Corpuscular Hemoglobin 31.1 pg (28.0-34.0); Mean Corpuscular Volume 92.3 fL (80-94); Mean Platelet Volume 8.8 fL (7.4-10.4); Monocytes # 0.4 10^3/uL (0.2-0.9); Monocytes % 5.7 %; Neutrophils # 5.7 10^3/uL (1.8-7.7); Neutrophils % 83.4 %; Nucleated Red Blood Cells % 0 %; Platelet Count 405 10^3/cmm (130-400); Red Blood Count 4.02 10^6/uL (4.1-5.3); Red Cell Distribution Width 14.1 % (12.1-15.1); White Blood Count 6.9 10^3/uL (4.0-10.0)
[2019-12-09 09:13] LABS: Alanine Aminotransferase 8 U/L (0-41); Albumin Level 3.5 g/dL (3.5-5.2); Alkaline Phosphatase 147 IU/L (40-130); Aspartate Amino Transferase 12 U/L (0-40); Blood Urea Nitrogen 4 mg/dL (6-20); Calcium 9.4 mg/dL (8.5-10.5); Carbon Dioxide 26 mmol/L (22-29); Chloride 93 mmol/L (98-107); Globulin 3.5 g/dL (1.3-4.6); Glomerular Filtration Rate 150.8 mL/min (90-130); Glucose 112 mg/dL (65-115); Sodium 133 mmol/L (136-145); Total Bilirubin 0.5 mg/dL (0.15-1.2)
[2019-12-09 11:09] LABS: Lactate Dehydrogenase 778 U/L (135-225)
--- NOTE | 2019-12-16 11:40 | ONC FU_ITS ---
[facility] Patient Note Patient: Macario Estevez Unit #: [id number]: 1980 Dictated By: Maria D EldridgeDate of Visit: Dec 16, 2019 Onc MED Follow-Up/Prog Note Chief Complaint: Testicular cancer. History of Present Illness: Mr Estevez is a 39 year-old man with classic seminoma involving the left testicle, by clinical evaluation his disease was stage IS (pT1, N0, M0, S1) at initial diagnosis, but with subsequent progression to stage IIIB (pT1, N1, M1a). On 09/20/2017 he presented to the emergency room with pain in the left testicle, which had been getting worse over a couple of months. He also could feel a hard spot in the testicle. Testicular ultrasound showed enlarged left testicle measuring 5.8 x 4.6 x 5.8 cm with diffusely heterogeneous appearance, worrisome for neoplasm. His chest x-ray was unremarkable. He was referred to Dr. Yeager. On 09/25/2017 he underwent left radical orchiectomy. He tolerated the procedure well. His preoperative tumor markers included LDH mildly elevated at 335/241 U/L, AFP 4.3 ng/ML, and beta hCG < 1 mIU/mL. His staging CT abdomen/pelvis on 09/28/2017 showed subcentimeter retroperitoneal lymph nodes. The largest was in the para-aortic area and measured 9 mm. Also noted were multiple subcentimeter nodules at the right lung base, metastasis not excluded. There was a 2 cm lytic area without associated bone destruction in the left ilium. This was thought to most likely represent a benign lesion. Pathology showed an enlarged testis measuring 7.1 x 4.7 cm. The parenchyma was almost completely effaced by tumor measuring 6.9 x 4.5 cm. The tunica was noted to be intact. Histology showed germ cell neoplasm felt to be most consistent with classic seminoma with a component of IGCN. The immunoperoxidase panel showed that the tumor was positive for CD-117, PLAP, and OCT 3/4. It was negative for alpha-fetoprotein, inhibin, CK-cocktail, SCOTT, CD-34, and CEA. The beta hCG showed scattered rare positive cells. Dr Russell had seen him initially on 10/06/2017. We discussed the possibility of immediate, short course adjuvant chemotherapy versus active surveillance. He opted for surveillance. He completed his staging with PET/CT on 11/27/2017. It showed a single left external iliac lymph node felt to most likely represent postoperative inflammatory changes. There was no other lymphadenopathy noted. Bilateral subcentimeter pulmonary nodules showed no focal increase in FDG activity and were felt to be intermediate for metastatic involvement. A focus of increased metabolic activity in the left thyroid lobe anteriorly appeared to be associated with a nodular density, and it was felt to be suspicious for neoplasia. Given those findings, he continued active surveillance was recommended for the seminoma. He was seen by Dr. Lackey in regard to the thyroid nodules. FNA biopsies of a 2.0 cm right thyroid nodule and a 1.4 cm left thyroid nodule both showed indeterminate cytopathology. They were ultimately confirmed to be benign. His surveillance CT scans of chest, abdomen, and pelvis on 05/21/2018 showed stable bilateral lung nodule. However, the abdomen/pelvis showed interval development of nonenlarged periaortic lymph node measuring 1.7 cm. The appearance was suspicious for metastatic involvement. He was seen for a follow-up visit on 06/12/2018. He was not overtly symptomatic. A follow-up CT of the abdomen/pelvis on 06/20/2018 showed progressive enlargement of the left periaortic lymph node, at that point measuring 2.5 x 2.2 cm. As it was clearly enlarging and indicative of metastatic disease, he was advised to undergo chemotherapy with 4 cycles of etoposide/cisplatin. However, as he wished to avoid chemotherapy if at all possible, he was given the option to have treatment with radiation as an alternative. He then completed radiation to periaortic lymph nodes on 09/13/2018 to a total dose of 3600 cGy. He continued follow-up with Dr. Olvera after the radiation. His surveillance CT abdomen/pelvis on 06/21/2019 showed residual left periaortic lymph node measuring 8.5 mm compared to 10.5 mm on the prior study from November 2018. Lung nodules in the right middle lobe and at the right lung base also appeared stable. There were no other interval changes reported. Chest x-ray on 10/16/2019 showed no concerning abnormalities. On 11/07/2019 he had presented with an obvious mass in the left supraclavicular area. At that point Dr. Olvera had recommended further evaluation with PET/CT and with needle biopsy of the supraclavicular mass. Neither of these were done. On 11/25/2019 he presented to the emergency room with multiple complaints, including chest pain, shortness of breath, and difficulty swallowing. His neck CT at that time showed a large heterogeneous mass in the posterior mediastinum encasing the descending thoracic aorta and with displacement of the pulmonary arteries, trachea, and esophagus. There was a necrotic mass in the left supraclavicular region measuring 5.9 x 4.6 cm consistent with adenopathy. On the chest CT the mediastinal mass was noted to measure 14.0 x 9.7 x 8.1 cm. Numerous calcified and partially calcified pulmonary nodules appeared stable. There was no evidence of disease progression in the abdomen/pelvis. He was transferred to [facility] for admission. His further evaluation there included needle biopsy of the supraclavicular mass, which should confirm recurrent seminoma. His tumor markers included elevated LDH at 1094 units/L, AFP 2.5 ng/mL, and mildly elevated beta-hCG at 5.3 mIU/mL. TTE showed low normal systolic function and external pressure and of the left atrium from the mediastinal mass. Brain MRI was normal. Pulmonary function studies showed FEV1 at 57% of predicted. The DLCO was low at 57%, but was at 78% when adjusted for alveolar volume. He was discharged with instructions to follow-up here for chemotherapy. He has had no other ongoing medical illnesses, and he has had no other surgeries. He has a history of smoking 1 pack of cigarettes daily for more than 20 years. He has been trying to quit. Mr Estevez was seen by Dr Russell for a follow-up visit. He had very limited activity. ECOG score was 3. Mr Estevez had obvious recurrence/progression of the seminoma. He was significantly symptomatic. He was recommended to undergo chemotherapy with 4 cycles of cisplatin/etoposide, which was felt to be preferable to 3 cycles of BEP given his smoking history. He had a right subclavian Port-a-Cath placement per Dr Jacob on 12/06/2019. He began his first cycle of chemotherapy with Cisplatin/Etoposide on 12/09/2019. It is a 5 day treatment. He did have nausea with day 1 and 2 but with adding Pepcid, Zyprexa, lorazepam and increasing the Zofran to 16 mg on day 2, his nausea was managed. Mr Estevez is here today for day 8 followup. Overall he is feeling better. He states the mass on the left side of his neck is pretty well gone. He denies any problems swallowing. He denies any fever or chills. He denies any mouth sores. He states about 4 AM he is having abdominal cramping and 30 seconds later will have vomiting. He continues to have significant heartburn . He states he has stopped eating after 6 PM this is helped some but he continues to have problems with the abdominal cramping and vomiting about 4 AM every morning. He has taken lorazepam at bedtime and this does seem to help some but is not relieving the problem completely. He denies any diarrhea. He is had slight constipation but states his bowels move normally this morning. He will add stool softeners to his bowel regimen. He denies any neuropathy. He denies any hearing changes. He states his urine has been normal. He has not had any hematuria to his knowledge. He is getting around the house some now and states overall he is doing better. His ECOG is 2. Past Medical History: He has had no ongoing medical illnesses. Past Surgical History: Right subclavian Port-A-Cath Dr Jacob ([facility] [place]) in 2019 Knee surgery in 2019 - right side Thyroidectomy in 2018 Left radical orchiectomy in 2017 Allergies: Penicillins and Sulfa Antibiotics. Medications: Cymbalta 1 (20 mg) Capsule Delayed Release Particles Oral daily Levothyroxine Sodium 1 Tablet (of 150 mcg) Oral daily Prochlorperazine Maleate 1 Tablet (of 10 mg) Oral t.i.d. PRN tiZANidine HCl 1 (4 mg) Tablet Oral q 4 hours PRN Zofran 1 Tablet (of 4 mg) Oral q 8 hours PRN Family History: Both parents and 2 siblings are in good health. 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 He is a daily smoker who has smoked 1.0 pack/day for 24 years. He is an active drinker. He has history of smoking 1 pack of cigarettes daily for 21 years. He has had just occasional alcohol use. Review Of Symptoms: Constitutional Denies fevers, chills, night sweats, excessive fatigue or weight loss. Eating better. Allergic/Immunologic No reactions. Eyes Denies significant visual changes. No diplopia. No amaurosis. ENMT Denies changes in hearing, sore throat, mouth sores, difficulty or changes in swallowing ability, and/or sinus drainage. Hematologic/Lymphatic Denies easy bruising or bleeding. The patient denies any tender or palpable lymph nodes. Respiratory Denies dyspnea on exertion, chest pain, cough or hemoptysis. Denies orthopnea. Cardiovascular Denies anginal chest pain, palpitations or orthopnea. Gastrointestinal Denies nausea, diarrhea, GI bleeding, or constipation. Denies change in bowel habits and/or stool color, no heartburn or early satiety. Slight constipation, but bowels moved normally this am. Having abdominal cramps and nausea/vomiting about 4 am consistently. Genitourinary (M) Denies hematuria, dysuria, increased frequency, urgency, hesitancy or incontinence. Musculoskeletal Denies joint pain, swelling or redness. No decreased range of motion. Integumentary Denies chronic rashes, inflammation, ulcerations or skin changes. Neurologic Denies headache, blurred vision, and no areas of focal weakness or numbness. Normal gait. No sensory problems. Psychiatric Denies insomnia, depression, june or mood swings. Vital Signs: Performed on Dec 16, 2019 10:33 Height - 62.00 in Weight - 206.8 lbs (LOW) BSA - 1.94 sq.m BMI - 37.82 (HIGH) Temperature - 97.6 F (LOW) Pulse - 100 /min Respiration - 16 /min BP - 103/75 mm(hg) O2 Sat - 99 % Pain - 4 Fatigue - 9,2 - Ambulatory/capable of all self-care, unable to perform any work activities. Up and about more than 50% of waking hours. (ECOG) Physical Examination: Constitutional Alert, oriented, no acute distress. Skin pink, warm and dry. Head Normocephalic; atraumatic. Eyes Conjunctivae and sclerae are clear and without icterus. Pupils are reactive and equal. ENMT No oral exudates, ulcers, masses, thrush or mucositis. Oropharynx clear. Tongue normal. Neck Supple without masses or thyromegaly. No jugular venous distension. Hematologic/Lymphatic No petechiae or purpura. No tender or palpable lymph nodes in the cervical or supraclavicular areas. Left supraclavicular mass essentially undetectable. Slight firmness noted, but no definite nodule. No other adenopathy noted. Respiratory Lungs are clear to auscultation without rhonchi or wheezing. Cardiovascular Regular rate and rhythm of heart without murmurs,clicks, gallops or rubs. Chest Chest is symmetric without chest wall deformities. Right venous access device insertion site has healed and is unremarkable. Breasts Abdomen Non-tender, non-distended, no masses or ascites. Back/Spine Non-tender to palpation. Extremities No visible deformities, no cyanosis, clubbing or edema. Musculoskeletal No tenderness or swelling, normal range of motion without obvious weakness. Integumentary No rashes or lesions. Neurologic No sensory or motor deficits, normal cerebellar function, normal gait. Psychiatric Alert and oriented times three. Coherent speech. Verbalizes understanding of our discussions today. Laboratory:Test performed on Dec 16, 2019 09:28 Sodium 136 mmol/L Potassium 4.8 mmol/L Chloride 97 mmol/L CO2 28 mmol/L Anion Gap 15.8 BUN 9 mg/dL Creatinine 0.6 mg/dL Cr Clearance (Est) 225.5500 mL/min eGFR 150.8 mL/min Glucose 92 mg/dL Calcium 9.8 mg/dL Protein, Total 7.3 g/dL Albumin 4.1 g/dL Globulin 3.2 g/dL Bilirubin, Total 0.4 mg/dL ALT (SGPT) 13 U/L AST (SGOT) 11 U/L Alkaline Phosphatase 99 IU/L WBC 4.3 10 3/uL RBC 4.30 10 6/uL HGB 12.7 g/dL HCT 38.4 % MCV 89.3 fL MCH 29.5 pg MCHC 33.1 g/dL RDW 13.7 % Platelet Count 336 10 3/cmm MPV 8.3 fL Neutrophils 3.8 10 3/uL Lymphocytes 0.4 10 3/uL Monocytes 0.0 10 3/uL Eosinophils 0.0 10 3/uL Basophils 0.0 10 3/uL Neutrophil % 87.1 % Lymphocyte % 9.9 % Monocyte % 0.2 % Eosinophil % 0.9 % Basophils % 0.7 % Test performed on Dec 09, 2019 09:00 LDH (Total) 778 U/L Impression: 1. Patient with classic seminoma involving the left testicle. By clinical evaluation, his disease appeared to be stage IS (pT1, N0, M0, S1) at initial diagnosis in in August 2017. 2. He underwent left radical orchiectomy on 09/25/2017. His preoperative tumor markers showed mildly elevated LDH with normal alpha-fetoprotein and beta-hCG levels. 3. His staging PET/CT showed bilateral subcentimeter pulmonary nodules which were FDG negative and indeterminate for metastatic disease. A left thyroid nodule was suspicious for neoplasia. On further evaluation by Dr. Lackey he was found to have bilateral thyroid nodules, both of which showed indeterminate cytopathology on FNA biopsy. These were ultimately determined to be benign. 4. He was intially followed on active surveillance. His restaging CT scans of the chest, abdomen, and pelvis on 05/21/2018 showed stable bilateral pulmonary nodules, but there was interval development of a 1.7 cm left periaortic lymph node. 5. A follow-up CT abdomen/pelvis on 06/20/2018 showed further enlargement of the left periaortic lymph node, at that point measuring 2.5 x 2.2 cm. The appearance was clearly consistent with metastatic disease, which changed his disease to stage IIA (pT1, cN1, M0, S1). He opted to have treatment with radiation, completed on 09/13/2018 to a total dose of 3600 cGy. 6. On 11/07/2019 he presented with a left supraclavicular mass. PET/CT and needle biopsy were recommended, but not completed. On 11/25/2019 he was admitted to [facility] after presenting to the emergency room with shortness of breath and difficulty swallowing. He had CT evidence of left supraclavicular mass measuring 5.9 x 4.6 cm and mediastinal mass measuring 14.0 x 9.7 x 8.1 cm. Needle biopsy of the mass confirmed recurrent seminoma. As such, his disease is now stage IIIB (pT1, N1, M1a). Mr Estevez has had obvious recurrence/progression of the seminoma. He was significantly symptomatic. He was recommended to undergo chemotherapy with 4 cycles of cisplatin/etoposide, which was felt to be preferable to 3 cycles of BEP given his smoking history. He had a right subclavian Port-a-Cath placement per Dr Jacob on 12/06/2019. He began his first cycle of chemotherapy with Cisplatin/Etoposide on 12/09/2019. It is a 5 day treatment. He did have nausea with day 1 and 2 but with adding Pepcid, Zyprexa, lorazepam and increasing the Zofran to 16 mg on day 2, his nausea was managed. Plan: 1. Proceed with cycle 1-this is day 8. 2. Increase Protonix to 40 mg BID-take am and hs. 3. Add lorazepam 1/2-1 tablet SUBLINGUALwhen he wakes up at 4 am. 4. May try Bentyl 10 mg po at hs for abdominal cramps. 5. Continue regular diet as tolerated. 6. Today's lab were reviewed in detail and discussed with Mr Estevez and a copy was given to him. WBC 4.3, HGB 12.7, Platelets 336,000, ANC 3800. Creatinine 0.6, LFTs normal. 7. Recheck CBC, CMP in 1 week for chemo monitoring. 8. Followup in 2 weeks with CBC, CMP, LDH, AFP and beta HCG (tumor monitoring). He will be due for cycle 2 Cisplatin and etoposide at that time. 9. Mr Estevez was instructed to call us in the interim if he has any questions or concerns and especially if he continues to have abdominal cramping and vomiting. Signed By: Maria D Eldridge-, CNP Allen Russell MD <<Signature on File>>
[2019-12-23 10:25] LABS: Hematocrit 32.5 % (42.0-52.0); Hemoglobin 10.9 g/dL (11.7-16.6); Lymphocytes # 0.4 10^3/uL (0.8-4.8); Lymphocytes % 39.6 %; Mean Corpuscular HGB Conc 33.5 g/dL (30.0-36.0); Mean Corpuscular Hemoglobin 31.4 pg (28.0-34.0); Mean Corpuscular Volume 93.7 fL (80-94); Mean Platelet Volume 8.8 fL (7.4-10.4); Monocytes # 0.1 10^3/uL (0.2-0.9); Monocytes % 6.9 %; Neutrophils % 48.5 %; Nucleated Red Blood Cells % 0 %; Platelet Count 111 10^3/cmm (130-400); Red Blood Count 3.47 10^6/uL (4.1-5.3); Red Cell Distribution Width 14.1 % (12.1-15.1)
[2019-12-23 10:41] LABS: Alanine Aminotransferase 10 U/L (0-41); Albumin Level 3.8 g/dL (3.5-5.2); Alkaline Phosphatase 76 IU/L (40-130); Anion Gap 16.2 (5-19); Aspartate Amino Transferase 10 U/L (0-40); Blood Urea Nitrogen 11 mg/dL (6-20); Calcium 9.4 mg/dL (8.5-10.5); Carbon Dioxide 25 mmol/L (22-29); Chloride 98 mmol/L (98-107); Globulin 3.3 g/dL (1.3-4.6); Glomerular Filtration Rate 186.1 mL/min (90-130); Glucose 125 mg/dL (65-115); Potassium 4.2 mmol/L (3.5-5.1); Sodium 135 mmol/L (136-145); Total Bilirubin 0.3 mg/dL (0.15-1.2); Total Protein 7.1 g/dL (6.6-8.7)
[2019-12-23 10:44] LABS: Neutrophils # 0.5 10^3/uL (1.8-7.7); Slide Review Slide Review Perform
[2019-12-26 16:13] LABS: Basophils % 2.2 %; Hematocrit 33.6 % (42.0-52.0); Hemoglobin 11.4 g/dL (11.7-16.6); Lymphocytes # 0.6 10^3/uL (0.8-4.8); Mean Corpuscular HGB Conc 33.9 g/dL (30.0-36.0); Mean Corpuscular Hemoglobin 31.8 pg (28.0-34.0); Mean Corpuscular Volume 93.6 fL (80-94); Mean Platelet Volume 8.6 fL (7.4-10.4); Monocytes # 0.2 10^3/uL (0.2-0.9); Monocytes % 17.2 %; Neutrophils % 35.1 %; Nucleated Red Blood Cells % 1.5 %; Platelet Count 149 10^3/cmm (130-400); Red Blood Count 3.59 10^6/uL (4.1-5.3); Red Cell Distribution Width 14.7 % (12.1-15.1); White Blood Count 1.3 10^3/uL (4.0-10.0)
[2019-12-26 16:54] LABS: Neutrophils # 0.5 10^3/uL (1.8-7.7); Slide Review Slide Review Perform
== END 2019-12-09 13:34 | disposition home or self-care (01) ==
LOC: ONCMED 08:06
PROVIDERS: Family Provider Nurse Practitioner; PCP Nurse Practitioner; Visit Provider Internal Medicine Medical Oncology
DX: Z51.11 Encounter for antineoplastic chemotherapy (principal); C62.12 Malignant neoplasm of descended left testis
CPT/HCPCS: 36415; 36591; 80053; 83615; 85025; 96366; 96367; 96372; 96375; 96413; 96417; 99214

== ENCOUNTER 2019-12-27 08:27 | Outpatient (RCR) | payer MEDICAID, SELFPAY ==
[2019-12-09] MEDS: FUROsemide 10 mg/mL SDV 2mL 20 MG IV (13:34)
[2019-12-09] MEDS: sodium chloride 0.9% 250 ML 300 ML IV (13:36)
[2019-12-09] MEDS: potassium chloride 20 MEQ in sodium chloride 0.9% 500 ML 250 MEQ IV (13:36)
[2019-12-10] MEDS: LORazepam 2 mg/mL INJ 1 mL 0.5 MG IV (11:40)
[2019-12-10] MEDS: OLANZapine 10 mg TABLET PO (12:15)
[2019-12-10] MEDS: potassium chloride 20 MEQ in sodium chloride 0.9% 500 ML 250 MEQ IV (14:42)
[2019-12-10] MEDS: FUROsemide 10 mg/mL SDV 2mL 20 MG IV (16:14)
[2019-12-11] MEDS: LORazepam 2 mg/mL INJ 1 mL 1 MG IV (09:23)
[2019-12-11] MEDS: ondansetron 2 mg/ML SDV 2 mL 8 MG IV (11:23)
[2019-12-11] MEDS: FUROsemide 10 mg/mL SDV 2mL 20 MG IV (13:55)
[2019-12-11] MEDS: potassium chloride 20 MEQ in sodium chloride 0.9% 500 ML 250 MEQ IV (13:57)
[2019-12-12] MEDS: sodium chloride 0.9% 250 ML 999 ML IV (08:24)
[2019-12-12] MEDS: FUROsemide 10 mg/mL SDV 2mL 20 MG IV (12:51)
[2019-12-12] MEDS: potassium chloride 20 MEQ in sodium chloride 0.9% 500 ML 250 MEQ IV (12:56)
[2019-12-13] MEDS: sodium chloride 0.9% 250 ML 75 ML IV (08:00)
[2019-12-13] MEDS: FUROsemide 10 mg/mL SDV 2mL 20 MG IV (12:10)
[2019-12-13] MEDS: potassium chloride 20 MEQ in sodium chloride 0.9% 500 ML 250 MEQ IV (12:12)
[2019-12-16 09:37] LABS: Basophils % 0.7 %; Eosinophils % 0.9 %; Hematocrit 38.4 % (42.0-52.0); Hemoglobin 12.7 g/dL (11.7-16.6); Lymphocytes # 0.4 10^3/uL (0.8-4.8); Lymphocytes % 9.9 %; Mean Corpuscular HGB Conc 33.1 g/dL (30.0-36.0); Mean Corpuscular Hemoglobin 29.5 pg (28.0-34.0); Mean Corpuscular Volume 89.3 fL (80-94); Mean Platelet Volume 8.3 fL (7.4-10.4); Monocytes % 0.2 %; Neutrophils # 3.8 10^3/uL (1.8-7.7); Neutrophils % 87.1 %; Nucleated Red Blood Cells % 0 %; Platelet Count 336 10^3/cmm (130-400); Red Cell Distribution Width 13.7 % (12.1-15.1); White Blood Count 4.3 10^3/uL (4.0-10.0)
[2019-12-16 09:57] LABS: Alanine Aminotransferase 13 U/L (0-41); Albumin Level 4.1 g/dL (3.5-5.2); Alkaline Phosphatase 99 IU/L (40-130); Anion Gap 15.8 (5-19); Aspartate Amino Transferase 11 U/L (0-40); Blood Urea Nitrogen 9 mg/dL (6-20); Calcium 9.8 mg/dL (8.5-10.5); Carbon Dioxide 28 mmol/L (22-29); Chloride 97 mmol/L (98-107); Globulin 3.2 g/dL (1.3-4.6); Glomerular Filtration Rate 150.8 mL/min (90-130); Glucose 92 mg/dL (65-115); Potassium 4.8 mmol/L (3.5-5.1); Sodium 136 mmol/L (136-145); Total Bilirubin 0.4 mg/dL (0.15-1.2); Total Protein 7.3 g/dL (6.6-8.7)
[2019-12-28 10:16] VITALS: BP 115/72; PULSE 92; RESP 18; TEMP 36.3; O2SAT 98
== END 2019-12-28 23:59 | disposition home or self-care (01) ==
LOC: ONCMED 08:27
PROVIDERS: Nurse Practitioner; Family Provider Nurse Practitioner; PCP Nurse Practitioner; Visit Provider Internal Medicine Medical Oncology
DX: Z51.11 Encounter for antineoplastic chemotherapy (principal); C77.0 Secondary and unspecified malignant neoplasm of lymph nodes of head, face and neck; Z85.47 Personal history of malignant neoplasm of testis; D70.1 Agranulocytosis secondary to cancer chemotherapy; T45.1X5A Adverse effect of antineoplastic and immunosuppressive drugs, initial encounter; E89.0 Postprocedural hypothyroidism; F17.210 Nicotine dependence, cigarettes, uncomplicated; Z90.79 Acquired absence of other genital organ(s); Z92.3 Personal history of irradiation
CPT/HCPCS: 36415; 80053; 85025; 96366; 96367; 96372; 96375; 96413; 96417; 99214; J1100; J1442; J1940; J2060; J2405; J2469; J3475; J3480; J3490; J7030; J7040; J7050; J9060; J9181

== ENCOUNTER 2020-01-27 06:31 | Outpatient (RCR) | payer MEDICAID, SELFPAY ==
[2019-12-30 08:47] LABS: Basophils # 0.1 10^3/uL (0.0-0.1); Basophils % 0.4 %; Eosinophils % 0.1 %; Hematocrit 33.6 % (42.0-52.0); Hemoglobin 11.3 g/dL (11.7-16.6); Lymphocytes # 0.8 10^3/uL (0.8-4.8); Lymphocytes % 5.5 %; Mean Corpuscular HGB Conc 33.6 g/dL (30.0-36.0); Mean Corpuscular Hemoglobin 31.4 pg (28.0-34.0); Mean Corpuscular Volume 93.3 fL (80-94); Mean Platelet Volume 8.8 fL (7.4-10.4); Monocytes # 1.8 10^3/uL (0.2-0.9); Monocytes % 11.8 %; Neutrophils % 66.8 %; Nucleated Red Blood Cells # 0.1 /100WBC; Nucleated Red Blood Cells % 0.3 %; Platelet Count 180 10^3/cmm (130-400); Red Cell Distribution Width 15.9 % (12.1-15.1)
[2019-12-30] MEDS: sodium chloride 0.9% 250 ML 75 ML IV (08:50)
[2019-12-30 09:07] LABS: Tumor Marker Alpha Fetoprotein 2.7 ng/mL (0-8.3)
[2019-12-30 10:06] LABS: Alanine Aminotransferase 6 U/L (0-41); Alkaline Phosphatase 113 IU/L (40-130); Anion Gap 16.4 (5-19); Aspartate Amino Transferase 9 U/L (0-40); Blood Urea Nitrogen 4 mg/dL (6-20); Calcium 9.4 mg/dL (8.5-10.5); Carbon Dioxide 26 mmol/L (22-29); Chloride 97 mmol/L (98-107); Globulin 3.1 g/dL (1.3-4.6); Glomerular Filtration Rate 150.8 mL/min (90-130); Glucose 107 mg/dL (65-115); Lactate Dehydrogenase 296 U/L (135-225); Potassium 3.4 mmol/L (3.5-5.1); Slide Review Slide Review Perform; Sodium 136 mmol/L (136-145); Total Bilirubin 0.3 mg/dL (0.15-1.2); Total Protein 7.1 g/dL (6.6-8.7)
[2019-12-30 10:10] LABS: Absolute Segmented Neutrophil 6.6 10/cmm (1.6-7.1); Band Neutrophils Absolute 4.5 10^3/cmm (0.0-1.2); Lymphocytes 3 %; Monocytes Absolute 2.1 10^3/cmm (0.1-0.6); Platelet Estimate Normal (Normal); Polychromasia 1+; Segmented Neutrophils 44 %; Total Cells Counted 100 (0-100)
[2019-12-30 10:12] LABS: HCG Tumor Marker < 1 mIU/mL (0-3)
[2019-12-30] MEDS: LORazepam 2 mg/mL INJ 1 mL 1 MG IV (10:50)
[2019-12-30] MEDS: FUROsemide 10 mg/mL SDV 2mL 20 MG IV (13:40)
[2019-12-30] MEDS: potassium chloride 20 MEQ in sodium chloride 0.9% 500 ML 250 MEQ IV (13:45)
--- NOTE | 2019-12-31 07:56 | ONC FU_ITS ---
Dr. Rusesll Patient Follow-Up Note Patient: Macario Porter Unit #: [id number]: [id number] Dicatated By: Allen Russell M.D.Date of Visit:Dec 30, 2019 Onc Med Follow-up/Prog Note Chief Complaint: Testicular cancer. History of Present Illness: This is a 39 year-old man with classic seminoma involving the left testicle, by clinical evaluation his disease was stage IS (pT1, N0, M0, S1) at initial diagnosis, but with subsequent progression to stage IIIB (pT1, N1, M1a). On 09/20/2017 he presented to the emergency room with pain in the left testicle, which had been getting worse over a couple of months. He also could feel a hard spot in the testicle. Testicular ultrasound showed enlarged left testicle measuring 5.8 x 4.6 x 5.8 cm with diffusely heterogeneous appearance, worrisome for neoplasm. His chest x-ray was unremarkable. He was referred to Dr. Yeager. On 09/25/2017 he underwent left radical orchiectomy. He tolerated the procedure well. His preoperative tumor markers included LDH mildly elevated at 335/241 U/L, AFP 4.3 ng/ML, and beta hCG < 1 mIU/mL. His staging CT abdomen/pelvis on 09/28/2017 showed subcentimeter retroperitoneal lymph nodes. The largest was in the para-aortic area and measured 9 mm. Also noted were multiple subcentimeter nodules at the right lung base, metastasis not excluded. There was a 2 cm lytic area without associated bone destruction in the left ilium. This was thought to most likely represent a benign lesion. Pathology showed an enlarged testis measuring 7.1 x 4.7 cm. The parenchyma was almost completely effaced by tumor measuring 6.9 x 4.5 cm. The tunica was noted to be intact. Histology showed germ cell neoplasm felt to be most consistent with classic seminoma with a component of IGCN. The immunoperoxidase panel showed that the tumor was positive for CD-117, PLAP, and OCT 3/4. It was negative for alpha-fetoprotein, inhibin, CK-cocktail, SCOTT, CD-34, and CEA. The beta hCG showed scattered rare positive cells. I had seen him initially on 10/06/2017. We discussed the possibility of immediate, short course adjuvant chemotherapy versus active surveillance. He opted for surveillance. He completed his staging with PET/CT on 11/27/2017. It showed a single left external iliac lymph node felt to most likely represent postoperative inflammatory changes. There was no other lymphadenopathy noted. Bilateral subcentimeter pulmonary nodules showed no focal increase in FDG activity and were felt to be intermediate for metastatic involvement. A focus of increased metabolic activity in the left thyroid lobe anteriorly appeared to be associated with a nodular density, and it was felt to be suspicious for neoplasia. Given those findings, he continued active surveillance was recommended for the seminoma. He was seen by Dr. Lackey in regard to the thyroid nodules. FNA biopsies of a 2.0 cm right thyroid nodule and a 1.4 cm left thyroid nodule both showed indeterminate cytopathology. They were ultimately confirmed to be benign. His surveillance CT scans of chest, abdomen, and pelvis on 05/21/2018 showed stable bilateral lung nodule. However, the abdomen/pelvis showed interval development of nonenlarged periaortic lymph node measuring 1.7 cm. The appearance was suspicious for metastatic involvement. He was seen for a follow-up visit on 06/12/2018. He was not overtly symptomatic. A follow-up CT of the abdomen/pelvis on 06/20/2018 showed progressive enlargement of the left periaortic lymph node, at that point measuring 2.5 x 2.2 cm. As it was clearly enlarging and indicative of metastatic disease, he was advised to undergo chemotherapy with 4 cycles of etoposide/cisplatin. However, as he wished to avoid chemotherapy if at all possible, he was given the option to have treatment with radiation as an alternative. He then completed radiation to periaortic lymph nodes on 09/13/2018 to a total dose of 3600 cGy. He continued follow-up with Dr. Olvera after the radiation. His surveillance CT abdomen/pelvis on 06/21/2019 showed residual left periaortic lymph node measuring 8.5 mm compared to 10.5 mm on the prior study from November 2018. Lung nodules in the right middle lobe and at the right lung base also appeared stable. There were no other interval changes reported. Chest x-ray on 10/16/2019 showed no concerning abnormalities. On 11/07/2019 he had presented with an obvious mass in the left supraclavicular area. At that point Dr. Olvera had recommended further evaluation with PET/CT and with needle biopsy of the supraclavicular mass. Neither of these were done. On 11/25/2019 he presented to the emergency room with multiple complaints, including chest pain, shortness of breath, and difficulty swallowing. His neck CT at that time showed a large heterogeneous mass in the posterior mediastinum encasing the descending thoracic aorta and with displacement of the pulmonary arteries, trachea, and esophagus. There was a necrotic mass in the left supraclavicular region measuring 5.9 x 4.6 cm consistent with adenopathy. On the chest CT the mediastinal mass was noted to measure 14.0 x 9.7 x 8.1 cm. Numerous calcified and partially calcified pulmonary nodules appeared stable. There was no evidence of disease progression in the abdomen/pelvis. He was transferred to [facility] for admission. His further evaluation there included needle biopsy of the supraclavicular mass, which should confirm recurrent seminoma. His tumor markers included elevated LDH at 1094 units/L, AFP 2.5 ng/mL, and mildly elevated beta-hCG at 5.3 mIU/mL. TTE showed low normal systolic function and external pressure and of the left atrium from the mediastinal mass. Brain MRI was normal. Pulmonary function studies showed FEV1 at 57% of predicted. The DLCO was low at 57%, but was at 78% when adjusted for alveolar volume. He was discharged with instructions to follow-up here for chemotherapy. He has had no other ongoing medical illnesses, and he has had no other surgeries. He has a history of smoking 1 pack of cigarettes daily for more than 20 years. He has been trying to quit. INTERIM HISTORY: He began his 1st of 4 planned cycles of chemotherapy with cisplatin/etoposide on 12/09/2019. He experienced significant nausea with the chemotherapy, despite antiemetic therapy with dexamethasone, ondansetron, and Lorazepam. He also tried Zyprexa, but tolerated it poorly. At day 15 he was neutropenic, ANC 500. He was treated with Neupogen and he was given empiric antibiotic coverage with Levaquin. He is seen for a follow-up visit. He has been feeling pretty weak generally, and he has very limited activity. His ECOG score is 3. He continues to have nausea, and he has vomiting about every morning. He has lost a few more pounds. He has not had fever. He has had some sweating at night. He has had some joint pain with the Neupogen, but it is tolerable. He has not had mouth sores. He has cough which is occasionally productive of white sputum. He does not complain of shortness of breath. At times he has had some pain across his chest. In addition to the nausea, he does have some acid reflux symptoms and he has been having constipation. Bladder function has been okay. He does not complain of headache or dizziness, and he has no focal neurologic symptoms. Medications: Allergy 1 Tablet (of 10 mg) Oral daily, Cymbalta 1 (20 mg) Capsule Delayed Release Particles Oral daily, Levothyroxine Sodium 1 Tablet (of 150 mcg) Oral daily, LORazepam 0.5 - 1 Tablet (of 1 mg) Oral t.i.d. PRN, Morphine Sulfate 1 Tablet (of 15 mg) Oral q for 4 hours PRN, Pantoprazole Sodium 1 Tablet (of 40 mg) Tablet, enteric coated Oral daily, Prochlorperazine Maleate 1 Tablet (of 10 mg) Oral t.i.d. PRN, tiZANidine HCl 1 (4 mg) Tablet Oral q 4 hours PRN, Zofran 1 Tablet (of 4 mg) Oral q 8 hours PRN Allergies: Penicillins and Sulfa Antibiotics. Review of Systems: Constitutional - He has no energy. He is mainly sedentary at home. His appetite is poor, but his weight is stable. No fever, chills or hot flashes. He has sweating at night. ECOG score is 3, ENMT - No sinus congestion/drainage. No mouth sores. No sore throat or difficulty swallowing, Hematologic/Lymphatic - No abnormal bruising or bleeding, Respiratory - No shortness of breath. He has a cough that sometimes produces white phlegm. No pleuritic pain or hemoptysis, Cardiovascular - He has occasional throbbing pains across his chest. No palpitations, Gastrointestinal - He has nausea and vomiting, mainly in the mornings. He has heartburn and acid reflux. He has constipation. No blood in the stool or black stools, Genitourinary (M) - No dysuria or hematuria. No urinary frequency. No urgency or incontinence, Musculoskeletal - He has pain in his lower back, neck, elbows, and knees, Integumentary - No skin complications, Neurologic - No headache or dizziness. No numbness/paresthesias or other focal neurologic symptoms, Psychiatric - He has some anxiety. No depression. No insomnia. Vital Signs: Performed on Dec 30, 2019 09:31 Height - 62.00 in Weight - 206 lbs (LOW) BSA - 1.94 sq.m BMI - 37.68 (HIGH) Temperature - 97.5 F (LOW) Pulse - 88 /min Respiration - 18 /min BP - 117/73 mm(hg) O2 Sat - 97 % Pain - 0 Physical Examination: Constitutional - He appears somewhat weak generally, Eyes - Sclerae nonicteric. Conjunctivae clear, ENMT - No lesions noted in the oral cavity, Hematologic/Lymphatic - There is just a small residual mass in the left supraclavicular fossa. There is no other adenopahty in the neck or axillae, Respiratory - Lungs sound clear, Cardiovascular - Heart rhythm is regular. There is no murmur, gallop, or rub noted, Abdomen - Soft. Liver and spleen are not enlarged. There is no abdominal mass or ascites noted. There is no inguinal adenopathy, Extremities - No edema, Neurologic - No focal neurologic deficits noted. Lab/Imaging: Test performed on Dec 30, 2019 08:22 HCG, Serum (Quant) < 1 mIU/mL LDH (Total) 296 U/L Sodium 136 mmol/L Potassium 3.4 mmol/L Chloride 97 mmol/L CO2 26 mmol/L Anion Gap 16.4 BUN 4 mg/dL Creatinine 0.6 mg/dL Cr Clearance (Est) 225.5500 mL/min eGFR 150.8 mL/min Glucose 107 mg/dL Calcium 9.4 mg/dL Protein, Total 7.1 g/dL Albumin 4.0 g/dL Globulin 3.1 g/dL Bilirubin, Total 0.3 mg/dL ALT (SGPT) 6 U/L AST (SGOT) 9 U/L Alkaline Phosphatase 113 IU/L WBC 15.0 10 3/uL Manual Bands % 30.0 % RBC 3.60 10 6/uL HGB 11.3 g/dL Manual Lymphs % 3 % HCT 33.6 % Manual Monos % 14.0 % MCV 93.3 fL MCH 31.4 pg MCHC 33.6 g/dL Metamyelocytes % 8.0 % RDW 15.9 % Myelocytes % 1.0 % Platelet Count 180 10 3/cmm MPV 8.8 fL Neutrophils 10.0 10 3/uL Lymphocytes 0.8 10 3/uL Monocytes 1.8 10 3/uL Eosinophils 0.0 10 3/uL Basophils 0.1 10 3/uL Neutrophil % 66.8 % Lymphocyte % 5.5 % Monocyte % 11.8 % Eosinophil % 0.1 % Basophils % 0.4 % CBC Slide Review Slide Review Perform Polychromasia 1+ Manual Bands Abs 4.5 10 3/cmm Manual Monocytes Abs 2.1 10 3/cmm AFP 2.7 ng/mL Impression: 1. Patient with classic seminoma involving the left testicle. By clinical evaluation, his disease appeared to be stage IS (pT1, N0, M0, S1) at initial diagnosis in in August 2017. 2. He underwent left radical orchiectomy on 09/25/2017. His preoperative tumor markers showed mildly elevated LDH with normal alpha-fetoprotein and beta-hCG levels. 3. His staging PET/CT showed bilateral subcentimeter pulmonary nodules which were FDG negative and indeterminate for metastatic disease. A left thyroid nodule was suspicious for neoplasia. On further evaluation by Dr. Lackey he was found to have bilateral thyroid nodules, both of which showed indeterminate cytopathology on FNA biopsy. These were ultimately determined to be benign. 4. He was intially followed on active surveillance. His restaging CT scans of the chest, abdomen, and pelvis on 05/21/2018 showed stable bilateral pulmonary nodules, but there was interval development of a 1.7 cm left periaortic lymph node. 5. A follow-up CT abdomen/pelvis on 06/20/2018 showed further enlargement of the left periaortic lymph node, at that point measuring 2.5 x 2.2 cm. The appearance was clearly consistent with metastatic disease, which changed his disease to stage IIA (pT1, cN1, M0, S1). He opted to have treatment with radiation, completed on 09/13/2018 to a total dose of 3600 cGy. 6. On 11/07/2019 he presented with a left supraclavicular mass. PET/CT and needle biopsy were recommended, but not completed. On 11/25/2019 he was admitted to [facility] after presenting to the emergency room with shortness of breath and difficulty swallowing. He had CT evidence of left supraclavicular mass measuring 5.9 x 4.6 cm and mediastinal mass measuring 14.0 x 9.7 x 8.1 cm. Needle biopsy of the mass confirmed recurrent seminoma. As such, his disease is now stage IIIB (pT1, N1, M1a). He began cycle 1 of chemotherapy with cisplatin/etoposide on 12/09/2019. He has been having significant nausea with the chemotherapy, and he also has weakness/fatigue with very limited activity. He became neutropenic at day 15, but he recovered uneventfully with Neupogen. Overall, he has been having significant treatment-related side effects, but he does appear to be showing a good response by clinical evaluation. Plan: He will proceed with cycle 2 of cisplatin/etoposide. The dosages will remain the same. He will be given Neulasta prophylactically. His antiemetic regimen will be adjusted, and I will try and get him on Marinol/Compazine combination, assuming I can get the medication available for him. He will be scheduled for a follow-up visit in 3 weeks. Signed By: Allen Russell M.D. <<Signature on File>>
[2019-12-31] MEDS: sodium chloride 0.9% 250 ML 75 ML IV (08:30)
[2019-12-31] MEDS: FUROsemide 10 mg/mL SDV 2mL 20 MG IV (12:38)
[2019-12-31] MEDS: potassium chloride 20 MEQ in sodium chloride 0.9% 500 ML 250 MEQ IV (12:40)
[2019-12-31] MEDS: LORazepam 2 mg/mL INJ 1 mL 1 MG IV (13:56)
[2020-01-01] MEDS: LORazepam 2 mg/mL INJ 1 mL 1 MG IV (08:38)
[2020-01-01] MEDS: sodium chloride 0.9% 250 ML 300 ML IV (08:40)
[2020-01-01] MEDS: LORazepam 2 mg/mL INJ 1 mL IV (10:26)
[2020-01-01] MEDS: diphenhydrAMINE 50 mg/mL SDV 1mL 25 MG IV (12:29)
[2020-01-01] MEDS: metoclopramide 5 mg/mL SDV 2 mL 10 MG IV (12:30)
[2020-01-01] MEDS: FUROsemide 10 mg/mL SDV 2mL 20 MG IV (12:31)
[2020-01-01] MEDS: potassium chloride 20 MEQ in sodium chloride 0.9% 500 ML 250 MEQ IV (12:42)
[2020-01-01] MEDS: famotidine 20 mg/2 mL INJ IVP (13:27)
[2020-01-02] MEDS: diphenhydrAMINE 50 mg/mL SDV 1mL 25 MG IVP (10:07)
[2020-01-02] MEDS: metoclopramide 5 mg/mL SDV 2 mL 10 MG IVP (10:07)
[2020-01-02] MEDS: LORazepam 2 mg/mL INJ 1 mL 1 MG IVP (10:08)
[2020-01-02] MEDS: FUROsemide 10 mg/mL SDV 2mL 20 MG IV (12:34)
[2020-01-02] MEDS: potassium chloride 20 MEQ in sodium chloride 0.9% 500 ML 250 MEQ IV (12:36)
[2020-01-03] MEDS: sodium chloride 0.9% 250 ML 75 ML IV (08:12)
[2020-01-03] MEDS: LORazepam 2 mg/mL INJ 1 mL IV (10:18)
[2020-01-03] MEDS: FUROsemide 10 mg/mL SDV 2mL 20 MG IV (12:10)
[2020-01-03] MEDS: potassium chloride 20 MEQ in sodium chloride 0.9% 500 ML 250 MEQ IV (12:12)
[2020-01-03] MEDS: pegfilgrastim 6 mg/0.6 mL Kit (onpro) SUBCUT (12:30)
[2020-01-06 10:44] LABS: Basophils # 0.2 10^3/uL (0.0-0.1); Basophils % 0.7 %; Hematocrit 36.1 % (42.0-52.0); Hemoglobin 12.4 g/dL (11.7-16.6); Lymphocytes # 0.6 10^3/uL (0.8-4.8); Lymphocytes % 2.6 %; Mean Corpuscular HGB Conc 34.3 g/dL (30.0-36.0); Mean Corpuscular Hemoglobin 30.5 pg (28.0-34.0); Mean Corpuscular Volume 88.9 fL (80-94); Mean Platelet Volume 9.1 fL (7.4-10.4); Monocytes # 0.1 10^3/uL (0.2-0.9); Monocytes % 0.3 %; Neutrophils # 18.9 10^3/uL (1.8-7.7); Neutrophils % 78.4 %; Nucleated Red Blood Cells % 0 %; Platelet Count 243 10^3/cmm (130-400); Red Blood Count 4.06 10^6/uL (4.1-5.3); Red Cell Distribution Width 15.2 % (12.1-15.1); White Blood Count 24.1 10^3/uL (4.0-10.0)
[2020-01-06 11:10] LABS: Slide Review Slide Review Perform
[2020-01-13 10:36] LABS: Basophils # 0.1 10^3/uL (0.0-0.1); Basophils % 1.7 %; Eosinophils % 0.2 %; Hemoglobin 10.1 g/dL (11.7-16.6); Lymphocytes # 0.8 10^3/uL (0.8-4.8); Lymphocytes % 13.3 %; Mean Corpuscular HGB Conc 33.7 g/dL (30.0-36.0); Mean Corpuscular Hemoglobin 30.4 pg (28.0-34.0); Mean Corpuscular Volume 90.4 fL (80-94); Mean Platelet Volume 9.7 fL (7.4-10.4); Monocytes # 0.5 10^3/uL (0.2-0.9); Monocytes % 8.7 %; Neutrophils # 3.9 10^3/uL (1.8-7.7); Nucleated Red Blood Cells % 0 %; Platelet Count 120 10^3/cmm (130-400); Red Blood Count 3.32 10^6/uL (4.1-5.3); Red Cell Distribution Width 15.6 % (12.1-15.1); White Blood Count 5.9 10^3/uL (4.0-10.0)
[2020-01-13 11:10] LABS: Slide Review Slide Review Perform
[2020-01-13 11:57] LABS: Thyroid Stimulating Hormone 5.41 uIU/mL (0.27-4.20)
[2020-01-20] MEDS: sodium chloride 0.9% 250 ML 75 ML IV (08:50)
[2020-01-20 08:52] LABS: Basophils # 0.1 10^3/uL (0.0-0.1); Basophils % 0.5 %; Eosinophils % 0.1 %; Hematocrit 31.6 % (42.0-52.0); Hemoglobin 10.6 g/dL (11.7-16.6); Lymphocytes # 1.2 10^3/uL (0.8-4.8); Lymphocytes % 8.8 %; Mean Corpuscular HGB Conc 33.5 g/dL (30.0-36.0); Mean Corpuscular Hemoglobin 30.9 pg (28.0-34.0); Mean Corpuscular Volume 92.1 fL (80-94); Mean Platelet Volume 8.8 fL (7.4-10.4); Monocytes % 7.1 %; Neutrophils # 10.2 10^3/uL (1.8-7.7); Neutrophils % 75.3 %; Nucleated Red Blood Cells % 0.3 %; Platelet Count 396 10^3/cmm (130-400); Red Blood Count 3.43 10^6/uL (4.1-5.3); Red Cell Distribution Width 16.2 % (12.1-15.1); White Blood Count 13.5 10^3/uL (4.0-10.0)
[2020-01-20 09:07] LABS: Alanine Aminotransferase 7 U/L (0-41); Alkaline Phosphatase 87 IU/L (40-130); Anion Gap 10.7 (5-19); Aspartate Amino Transferase 9 U/L (0-40); Blood Urea Nitrogen 7 mg/dL (6-20); Calcium 9.4 mg/dL (8.5-10.5); Carbon Dioxide 34 mmol/L (22-29); Chloride 96 mmol/L (98-107); Globulin 3.1 g/dL (1.3-4.6); Glomerular Filtration Rate 150.8 mL/min (90-130); Glucose 123 mg/dL (65-115); Lactate Dehydrogenase 277 U/L (135-225); Osmolality Calculated 281 mOsm/kg (285-295); Potassium 3.7 mmol/L (3.5-5.1); Sodium 137 mmol/L (136-145); Total Bilirubin 0.2 mg/dL (0.15-1.2); Total Protein 7.1 g/dL (6.6-8.7)
[2020-01-20 09:14] LABS: Slide Review Slide Review Perform
[2020-01-20 09:17] LABS: Absolute Segmented Neutrophil 10.1 10/cmm (1.6-7.1); Band Neutrophils Absolute 1.4 10^3/cmm (0.0-1.2); Lymphocytes 6 %; Monocytes Absolute 0.5 10^3/cmm (0.1-0.6); Segmented Neutrophils 75 %; Total Cells Counted 100 (0-100)
[2020-01-20 09:18] LABS: Platelet Estimate Normal (Normal)
[2020-01-20] MEDS: LORazepam 2 mg/mL INJ 1 mL 1 MG IVP (10:50)
[2020-01-20] MEDS: FUROsemide 10 mg/mL SDV 2mL 20 MG IV (13:05)
[2020-01-20] MEDS: potassium chloride 20 MEQ in sodium chloride 0.9% 500 ML 250 MEQ IV (13:08)
--- NOTE | 2020-01-20 13:17 | ONC FU_ITS ---
Dr. Russell Patient Follow-Up Note Patient: Macario Porter Unit #: [id number]: 1980 Dicatated By: Allen Russell M.D.Date of Visit:Jan 20, 2020 Onc Med Follow-up/Prog Note Chief Complaint: Testicular cancer. History of Present Illness: This is a 39 year-old man with classic seminoma involving the left testicle, by clinical evaluation his disease was stage IS (pT1, N0, M0, S1) at initial diagnosis, but with subsequent progression to stage IIIB (pT1, N1, M1a). On 09/20/2017 he presented to the emergency room with pain in the left testicle, which had been getting worse over a couple of months. He also could feel a hard spot in the testicle. Testicular ultrasound showed enlarged left testicle measuring 5.8 x 4.6 x 5.8 cm with diffusely heterogeneous appearance, worrisome for neoplasm. His chest x-ray was unremarkable. He was referred to Dr. Yeager. On 09/25/2017 he underwent left radical orchiectomy. He tolerated the procedure well. His preoperative tumor markers included LDH mildly elevated at 335/241 U/L, AFP 4.3 ng/ML, and beta hCG < 1 mIU/mL. His staging CT abdomen/pelvis on 09/28/2017 showed subcentimeter retroperitoneal lymph nodes. The largest was in the para-aortic area and measured 9 mm. Also noted were multiple subcentimeter nodules at the right lung base, metastasis not excluded. There was a 2 cm lytic area without associated bone destruction in the left ilium. This was thought to most likely represent a benign lesion. Pathology showed an enlarged testis measuring 7.1 x 4.7 cm. The parenchyma was almost completely effaced by tumor measuring 6.9 x 4.5 cm. The tunica was noted to be intact. Histology showed germ cell neoplasm felt to be most consistent with classic seminoma with a component of IGCN. The immunoperoxidase panel showed that the tumor was positive for CD-117, PLAP, and OCT 3/4. It was negative for alpha-fetoprotein, inhibin, CK-cocktail, SCOTT, CD-34, and CEA. The beta hCG showed scattered rare positive cells. I had seen him initially on 10/06/2017. We discussed the possibility of immediate, short course adjuvant chemotherapy versus active surveillance. He opted for surveillance. He completed his staging with PET/CT on 11/27/2017. It showed a single left external iliac lymph node felt to most likely represent postoperative inflammatory changes. There was no other lymphadenopathy noted. Bilateral subcentimeter pulmonary nodules showed no focal increase in FDG activity and were felt to be intermediate for metastatic involvement. A focus of increased metabolic activity in the left thyroid lobe anteriorly appeared to be associated with a nodular density, and it was felt to be suspicious for neoplasia. Given those findings, he continued active surveillance was recommended for the seminoma. He was seen by Dr. Lackey in regard to the thyroid nodules. FNA biopsies of a 2.0 cm right thyroid nodule and a 1.4 cm left thyroid nodule both showed indeterminate cytopathology. They were ultimately confirmed to be benign. His surveillance CT scans of chest, abdomen, and pelvis on 05/21/2018 showed stable bilateral lung nodule. However, the abdomen/pelvis showed interval development of nonenlarged periaortic lymph node measuring 1.7 cm. The appearance was suspicious for metastatic involvement. He was seen for a follow-up visit on 06/12/2018. He was not overtly symptomatic. A follow-up CT of the abdomen/pelvis on 06/20/2018 showed progressive enlargement of the left periaortic lymph node, at that point measuring 2.5 x 2.2 cm. As it was clearly enlarging and indicative of metastatic disease, he was advised to undergo chemotherapy with 4 cycles of etoposide/cisplatin. However, as he wished to avoid chemotherapy if at all possible, he was given the option to have treatment with radiation as an alternative. He then completed radiation to periaortic lymph nodes on 09/13/2018 to a total dose of 3600 cGy. He continued follow-up with Dr. Olvera after the radiation. His surveillance CT abdomen/pelvis on 06/21/2019 showed residual left periaortic lymph node measuring 8.5 mm compared to 10.5 mm on the prior study from November 2018. Lung nodules in the right middle lobe and at the right lung base also appeared stable. There were no other interval changes reported. Chest x-ray on 10/16/2019 showed no concerning abnormalities. On 11/07/2019 he had presented with an obvious mass in the left supraclavicular area. At that point Dr. Olvera had recommended further evaluation with PET/CT and with needle biopsy of the supraclavicular mass. Neither of these were done. On 11/25/2019 he presented to the emergency room with multiple complaints, including chest pain, shortness of breath, and difficulty swallowing. His neck CT at that time showed a large heterogeneous mass in the posterior mediastinum encasing the descending thoracic aorta and with displacement of the pulmonary arteries, trachea, and esophagus. There was a necrotic mass in the left supraclavicular region measuring 5.9 x 4.6 cm consistent with adenopathy. On the chest CT the mediastinal mass was noted to measure 14.0 x 9.7 x 8.1 cm. Numerous calcified and partially calcified pulmonary nodules appeared stable. There was no evidence of disease progression in the abdomen/pelvis. He was transferred to [facility] for admission. His further evaluation there included needle biopsy of the supraclavicular mass, which should confirm recurrent seminoma. His tumor markers included elevated LDH at 1094 units/L, AFP 2.5 ng/mL, and mildly elevated beta-hCG at 5.3 mIU/mL. TTE showed low normal systolic function and external pressure and of the left atrium from the mediastinal mass. Brain MRI was normal. Pulmonary function studies showed FEV1 at 57% of predicted. The DLCO was low at 57%, but was at 78% when adjusted for alveolar volume. He was discharged with instructions to follow-up here for chemotherapy. He has had no other ongoing medical illnesses, and he has had no other surgeries. He has a history of smoking 1 pack of cigarettes daily for more than 20 years. He has been trying to quit. INTERIM HISTORY: He began his 1st of 4 planned cycles of chemotherapy with cisplatin/etoposide on 12/09/2019. He experienced significant nausea with the chemotherapy, despite antiemetic therapy with dexamethasone, ondansetron, and Lorazepam. He also tried Zyprexa, but tolerated it poorly. At day 15 he was neutropenic, ANC 500. He was treated with Neupogen and he was given empiric antibiotic coverage with Levaquin. He proceeded with cycle 2 on 12/30/2019. He was given Neulasta prophylactically with that cycle, and I also had him start Marinol/Compazine for nausea/anorexia. He is seen for a follow-up visit. He has been feeling a little better generally. He has continued to have some nausea, but not nearly as severe as it was with the first cycle. He still wakes up with nausea/vomiting on average of 2 times a week. His appetite is getting better, though eating is still a problem. He has lost weight. He has limited activity, but he is up and around at home. He has not had fever or night sweats. He has had some cold chills, though. He has had no mouth sores. He has had a little bit of cough. He does not complain of shortness of breath or chest pain. He has had some constipation. He has been taking a stool softener, though not regularly. Bladder function has been okay. He has no significant joint or bone pain. He does not complain of headache or dizziness. He has no focal neurologic symptoms. Medications: Allergy 1 Tablet (of 10 mg) Oral daily, Cymbalta 1 (20 mg) Capsule Delayed Release Particles Oral daily, Levothyroxine Sodium 1 Tablet (of 150 mcg) Oral daily, LORazepam 0.5 - 1 Tablet (of 1 mg) Oral t.i.d. PRN, Morphine Sulfate 1 Tablet (of 15 mg) Oral q for 4 hours PRN, Pantoprazole Sodium 1 Tablet (of 40 mg) Tablet, enteric coated Oral daily, Prochlorperazine Maleate 1 Tablet (of 10 mg) Oral t.i.d. PRN, tiZANidine HCl 1 (4 mg) Tablet Oral q 4 hours PRN, Zofran 1 Tablet (of 4 mg) Oral q 8 hours PRN Allergies: Penicillins and Sulfa Antibiotics. Review of Systems: Constitutional - His energy level is low. He is up and around at home. Appetite is improving with Marinol, but his weight is down about 10 pounds. No fever. Occasional epsides of chilling. No hot flashes or night sweats. ECOG score is 2, ENMT - No sinus congestion/drainage. No mouth sores. No sore throat or difficulty swallowing, Hematologic/Lymphatic - No abnormal bruising or bleeding, Respiratory - No shortness of breath. He has a little bit of cough. No pleuritic pain or hemoptysis, Cardiovascular - No angina pain. No palpitations, Gastrointestinal - He is having occasional nausea with vomiting, mostly during the night. No heartburn or acid reflux. No diarrhea. He is having constipation. He is taking over the counter stool softner. No blood in the stool or black stools, Genitourinary (M) - No dysuria or hematuria. No urinary frequency. No urgency or incontinence, Musculoskeletal - No joint or bone pain, Integumentary - No skin complications, Neurologic - No headache or dizziness. No numbness/paresthesias or other focal neurologic symptoms, Psychiatric - No anxiety or depression. No insomnia. Vital Signs: Performed on Jan 20, 2020 09:07 Height - 62.00 in Weight - 196.6 lbs (LOW) BSA - 1.90 sq.m BMI - 35.96 (HIGH) Temperature - 98.1 F (LOW) Pulse - 74 /min Respiration - 20 /min BP - 112/71 mm(hg) O2 Sat - 93 % (LOW) Pain - 0 Physical Examination: Constitutional - He appears somewhat weak generally, Eyes - Sclerae nonicteric. Conjunctivae clear, ENMT - No lesions noted in the oral cavity, Hematologic/Lymphatic - There is no residual mass in the left supraclavicular fossa and no other adenopathy in the neck or axillae, Respiratory - Lungs sound clear, Cardiovascular - Heart rhythm is regular. There is no murmur, gallop, or rub noted, Abdomen - Soft. Liver and spleen are not enlarged. There is no abdominal mass or ascites noted. There is no inguinal adenopathy, Extremities - No edema, Neurologic - No focal neurologic deficits noted. Lab/Imaging: Test performed on Jan 20, 2020 08:39 WBC 13.5 10 3/uL Manual Bands % 10.0 % RBC 3.43 10 6/uL HGB 10.6 g/dL Manual Lymphs % 6 % HCT 31.6 % Manual Monos % 4.0 % MCV 92.1 fL MCH 30.9 pg MCHC 33.5 g/dL Metamyelocytes % 2.0 % RDW 16.2 % Myelocytes % 3.0 % Platelet Count 396 10 3/cmm MPV 8.8 fL Neutrophils 10.2 10 3/uL Lymphocytes 1.2 10 3/uL Monocytes 1.0 10 3/uL Eosinophils 0.0 10 3/uL Basophils 0.1 10 3/uL Neutrophil % 75.3 % Lymphocyte % 8.8 % Monocyte % 7.1 % Eosinophil % 0.1 % Basophils % 0.5 % CBC Slide Review Slide Review Perform Manual Bands Abs 1.4 10 3/cmm Manual Monocytes Abs 0.5 10 3/cmm Test performed on Jan 20, 2020 08:30 LDH (Total) 277 U/L Sodium 137 mmol/L Potassium 3.7 mmol/L Chloride 96 mmol/L CO2 34 mmol/L Anion Gap 10.7 BUN 7 mg/dL Creatinine 0.6 mg/dL Cr Clearance (Est) 225.5500 mL/min eGFR 150.8 mL/min Glucose 123 mg/dL Calcium 9.4 mg/dL Protein, Total 7.1 g/dL Albumin 4.0 g/dL Globulin 3.1 g/dL Bilirubin, Total 0.2 mg/dL ALT (SGPT) 7 U/L AST (SGOT) 9 U/L Alkaline Phosphatase 87 IU/L Impression: 1. Patient with classic seminoma involving the left testicle. By clinical evaluation, his disease appeared to be stage IS (pT1, N0, M0, S1) at initial diagnosis in in August 2017. 2. He underwent left radical orchiectomy on 09/25/2017. His preoperative tumor markers showed mildly elevated LDH with normal alpha-fetoprotein and beta-hCG levels. 3. His staging PET/CT showed bilateral subcentimeter pulmonary nodules which were FDG negative and indeterminate for metastatic disease. A left thyroid nodule was suspicious for neoplasia. On further evaluation by Dr. Lackey he was found to have bilateral thyroid nodules, both of which showed indeterminate cytopathology on FNA biopsy. These were ultimately determined to be benign. 4. He was intially followed on active surveillance. His restaging CT scans of the chest, abdomen, and pelvis on 05/21/2018 showed stable bilateral pulmonary nodules, but there was interval development of a 1.7 cm left periaortic lymph node. 5. A follow-up CT abdomen/pelvis on 06/20/2018 showed further enlargement of the left periaortic lymph node, at that point measuring 2.5 x 2.2 cm. The appearance was clearly consistent with metastatic disease, which changed his disease to stage IIA (pT1, cN1, M0, S1). He opted to have treatment with radiation, completed on 09/13/2018 to a total dose of 3600 cGy. 6. On 11/07/2019 he presented with a left supraclavicular mass. PET/CT and needle biopsy were recommended, but not completed. On 11/25/2019 he was admitted to [facility] after presenting to the emergency room with shortness of breath and difficulty swallowing. He had CT evidence of left supraclavicular mass measuring 5.9 x 4.6 cm and mediastinal mass measuring 14.0 x 9.7 x 8.1 cm. Needle biopsy of the mass confirmed recurrent seminoma. As such, his disease is now stage IIIB (pT1, N1, M1a). He began cycle 1 of chemotherapy with cisplatin/etoposide on 12/09/2019. He has been having significant nausea with the chemotherapy, and he also has weakness/fatigue with very limited activity. He became neutropenic at day 15, but he recovered uneventfully with Neupogen. Overall, he experienced significant treatment-related side effects, but he was able to complete a second cycle of treatment, and he has tolerated it a little better. He does have evidence of response by clinical evaluation. Plan: He will proceed with cycle 3 of cisplatin/etoposide. The dosages will remain the same. He will be given Neulasta prophylactically. I will see if I can get an increase in his Marinol dosage. His antiemetic regimen will otherwise remain the same. He will get started on docusate senna for the constipation. He will be scheduled for a follow-up visit in 3 weeks. Signed By: Allen Russell M.D. <<Signature on File>>
[2020-01-20] MEDS: diphenhydrAMINE 50 mg/mL SDV 1mL 25 MG IV (14:24)
[2020-01-20] MEDS: metoclopramide 5 mg/mL SDV 2 mL 10 MG IV (14:27)
[2020-01-21] MEDS: metoclopramide 5 mg/mL SDV 2 mL 10 MG IV ×2 (09:27→14:59)
[2020-01-21] MEDS: LORazepam 2 mg/mL INJ 1 mL 1 MG IV (11:47)
[2020-01-21] MEDS: FUROsemide 10 mg/mL SDV 2mL 20 MG IV (13:47)
[2020-01-21] MEDS: potassium chloride 20 MEQ in sodium chloride 0.9% 500 ML 250 MEQ IV (13:50)
[2020-01-21] MEDS: famotidine 20 mg/2 mL INJ IVP (14:56)
[2020-01-21] MEDS: diphenhydrAMINE 50 mg/mL SDV 1mL 25 MG IV (14:58)
[2020-01-22] MEDS: sodium chloride 0.9% 250 ML 75 ML IV (09:05)
[2020-01-22] MEDS: LORazepam 2 mg/mL INJ 1 mL 1 MG IV (10:58)
[2020-01-22] MEDS: FUROsemide 10 mg/mL SDV 2mL 20 MG IV (13:02)
[2020-01-22] MEDS: potassium chloride 20 MEQ in sodium chloride 0.9% 500 ML 250 MEQ IV (13:05)
[2020-01-23] MEDS: sodium chloride 0.9% 250 ML 75 ML IV (08:50)
[2020-01-23] MEDS: LORazepam 2 mg/mL INJ 1 mL 1 MG IVP (10:38)
[2020-01-23] MEDS: FUROsemide 10 mg/mL SDV 2mL 20 MG IV (12:46)
[2020-01-23] MEDS: potassium chloride 20 MEQ in sodium chloride 0.9% 500 ML 250 MEQ IV (12:48)
[2020-01-24] MEDS: LORazepam 2 mg/mL INJ 1 mL 1 MG IV (10:20)
[2020-01-24] MEDS: FUROsemide 10 mg/mL SDV 2mL 20 MG IV (12:16)
[2020-01-24] MEDS: potassium chloride 20 MEQ in sodium chloride 0.9% 500 ML 250 MEQ IV (12:18)
[2020-01-24] MEDS: pegfilgrastim 6 mg/0.6 mL Kit (onpro) SUBCUT (12:21)
[2020-01-27 11:17] LABS: Hematocrit 34.1 % (42.0-52.0); Hemoglobin 11.7 g/dL (11.7-16.6); Lymphocytes # 0.7 10^3/uL (0.8-4.8); Lymphocytes % 1.1 %; Mean Corpuscular HGB Conc 34.3 g/dL (30.0-36.0); Mean Corpuscular Volume 93.2 fL (80-94); Mean Platelet Volume 8.5 fL (7.4-10.4); Monocytes # 0.2 10^3/uL (0.2-0.9); Monocytes % 0.3 %; Neutrophils % 85.7 %; Nucleated Red Blood Cells % 0 %; Platelet Count 473 10^3/cmm (130-400); Red Blood Count 3.66 10^6/uL (4.1-5.3); Red Cell Distribution Width 16.9 % (12.1-15.1)
[2020-01-27 11:39] LABS: Slide Review Slide Review Perform
== END 2020-01-28 23:59 | disposition home or self-care (01) ==
LOC: ONCMED 06:31
PROVIDERS: Family Provider Nurse Practitioner; PCP Nurse Practitioner; Visit Provider Internal Medicine Medical Oncology
DX: Z51.11 Encounter for antineoplastic chemotherapy (principal); C62.12 Malignant neoplasm of descended left testis; C77.0 Secondary and unspecified malignant neoplasm of lymph nodes of head, face and neck; D70.1 Agranulocytosis secondary to cancer chemotherapy; T45.1X5A Adverse effect of antineoplastic and immunosuppressive drugs, initial encounter; K59.00 Constipation, unspecified; F17.210 Nicotine dependence, cigarettes, uncomplicated; Z79.899 Other long term (current) drug therapy; Z92.3 Personal history of irradiation; Z90.79 Acquired absence of other genital organ(s)
CPT/HCPCS: 36415; 36591; 80053; 82105; 83615; 84443; 84702; 85007; 85025; 96366; 96367; 96372; 96375; 96376; 96413; 96417; 99214; J1100; J1200; J1453; J1940; J2060; J2405; J2469; J2505; J2765; J3475; J3480; J3490; J7030; J7040; J7050; J9060; J9181

== ENCOUNTER 2020-02-14 06:49 | Outpatient (RCR) | payer MEDICAID, SELFPAY ==
[2020-02-03] MEDS: LORazepam 2 mg/mL INJ 1 mL 1 MG IV (10:46)
[2020-02-03 11:13] LABS: Basophils # 0.1 10^3/uL (0.0-0.1); Basophils % 1.1 %; Eosinophils % 0.1 %; Hematocrit 29.4 % (42.0-52.0); Lymphocytes # 0.8 10^3/uL (0.8-4.8); Lymphocytes % 11.1 %; Mean Corpuscular Hemoglobin 32.1 pg (28.0-34.0); Mean Corpuscular Volume 94.2 fL (80-94); Mean Platelet Volume 9.2 fL (7.4-10.4); Monocytes # 0.6 10^3/uL (0.2-0.9); Monocytes % 8.1 %; Neutrophils # 5.7 10^3/uL (1.8-7.7); Neutrophils % 76.1 %; Nucleated Red Blood Cells # 0.1 /100WBC; Nucleated Red Blood Cells % 0.7 %; Platelet Count 196 10^3/cmm (130-400); Red Blood Count 3.12 10^6/uL (4.1-5.3); Red Cell Distribution Width 18.2 % (12.1-15.1); White Blood Count 7.5 10^3/uL (4.0-10.0)
[2020-02-10] MEDS: sodium chloride 0.9% 250 ML 75 ML IV (08:30)
[2020-02-10 08:41] LABS: Basophils # 0.1 10^3/uL (0.0-0.1); Basophils % 0.4 %; Eosinophils % 0.2 %; Hematocrit 28.8 % (42.0-52.0); Hemoglobin 9.3 g/dL (11.7-16.6); Lymphocytes # 0.9 10^3/uL (0.8-4.8); Lymphocytes % 6.6 %; Mean Corpuscular HGB Conc 32.3 g/dL (30.0-36.0); Mean Corpuscular Hemoglobin 31.3 pg (28.0-34.0); Mean Platelet Volume 8.7 fL (7.4-10.4); Monocytes % 7.1 %; Neutrophils # 11.4 10^3/uL (1.8-7.7); Neutrophils % 82.4 %; Nucleated Red Blood Cells # 0.1 /100WBC; Nucleated Red Blood Cells % 0.4 %; Platelet Count 350 10^3/cmm (130-400); Red Blood Count 2.97 10^6/uL (4.1-5.3); Red Cell Distribution Width 19.5 % (12.1-15.1); White Blood Count 13.8 10^3/uL (4.0-10.0)
[2020-02-10 10:12] LABS: Alanine Aminotransferase 7 U/L (0-41); Albumin Level 3.7 g/dL (3.5-5.2); Alkaline Phosphatase 96 IU/L (40-130); Anion Gap 16.5 (5-19); Aspartate Amino Transferase 10 U/L (0-40); Blood Urea Nitrogen 6 mg/dL (6-20); Calcium 9.4 mg/dL (8.5-10.5); Carbon Dioxide 29 mmol/L (22-29); Chloride 98 mmol/L (98-107); Globulin 2.6 g/dL (1.3-4.6); Glomerular Filtration Rate 150.8 mL/min (90-130); Glucose 105 mg/dL (65-115); Lactate Dehydrogenase 177 U/L (135-225); Osmolality Calculated 286 mOsm/kg (285-295); Potassium 3.5 mmol/L (3.5-5.1); Sodium 140 mmol/L (136-145); Total Bilirubin 0.2 mg/dL (0.15-1.2); Total Protein 6.3 g/dL (6.6-8.7)
[2020-02-10] MEDS: metoclopramide 5 mg/mL SDV 2 mL 10 MG IV ×2 (10:29→14:54)
[2020-02-10] MEDS: LORazepam 2 mg/mL INJ 1 mL 1 MG IV ×2 (10:31→14:56)
[2020-02-10] MEDS: FUROsemide 10 mg/mL SDV 2mL 20 MG IV (13:54)
[2020-02-10] MEDS: potassium chloride 20 MEQ in sodium chloride 0.9% 500 ML 250 MEQ IV (13:56)
--- NOTE | 2020-02-10 17:06 | ONC FU_ITS ---
Dr. Rsusell Patient Follow-Up Note Patient: Macario Porter Unit #: [id number]: 1980 Dicatated By: Allen Russell M.D.Date of Visit:Feb 10, 2020 Onc Med Follow-up/Prog Note Chief Complaint: Testicular cancer. History of Present Illness: This is a 39 year-old man with classic seminoma involving the left testicle, by clinical evaluation his disease was stage IS (pT1, N0, M0, S1) at initial diagnosis, but with subsequent progression to stage IIIB (pT1, N1, M1a). On 09/20/2017 he presented to the emergency room with pain in the left testicle, which had been getting worse over a couple of months. He also could feel a hard spot in the testicle. Testicular ultrasound showed enlarged left testicle measuring 5.8 x 4.6 x 5.8 cm with diffusely heterogeneous appearance, worrisome for neoplasm. His chest x-ray was unremarkable. He was referred to Dr. Yeager. On 09/25/2017 he underwent left radical orchiectomy. He tolerated the procedure well. His preoperative tumor markers included LDH mildly elevated at 335/241 U/L, AFP 4.3 ng/ML, and beta hCG < 1 mIU/mL. His staging CT abdomen/pelvis on 09/28/2017 showed subcentimeter retroperitoneal lymph nodes. The largest was in the para-aortic area and measured 9 mm. Also noted were multiple subcentimeter nodules at the right lung base, metastasis not excluded. There was a 2 cm lytic area without associated bone destruction in the left ilium. This was thought to most likely represent a benign lesion. Pathology showed an enlarged testis measuring 7.1 x 4.7 cm. The parenchyma was almost completely effaced by tumor measuring 6.9 x 4.5 cm. The tunica was noted to be intact. Histology showed germ cell neoplasm felt to be most consistent with classic seminoma with a component of IGCN. The immunoperoxidase panel showed that the tumor was positive for CD-117, PLAP, and OCT 3/4. It was negative for alpha-fetoprotein, inhibin, CK-cocktail, SCOTT, CD-34, and CEA. The beta hCG showed scattered rare positive cells. I had seen him initially on 10/06/2017. We discussed the possibility of immediate, short course adjuvant chemotherapy versus active surveillance. He opted for surveillance. He completed his staging with PET/CT on 11/27/2017. It showed a single left external iliac lymph node felt to most likely represent postoperative inflammatory changes. There was no other lymphadenopathy noted. Bilateral subcentimeter pulmonary nodules showed no focal increase in FDG activity and were felt to be intermediate for metastatic involvement. A focus of increased metabolic activity in the left thyroid lobe anteriorly appeared to be associated with a nodular density, and it was felt to be suspicious for neoplasia. Given those findings, he continued active surveillance was recommended for the seminoma. He was seen by Dr. Lackey in regard to the thyroid nodules. FNA biopsies of a 2.0 cm right thyroid nodule and a 1.4 cm left thyroid nodule both showed indeterminate cytopathology. They were ultimately confirmed to be benign. His surveillance CT scans of chest, abdomen, and pelvis on 05/21/2018 showed stable bilateral lung nodule. However, the abdomen/pelvis showed interval development of nonenlarged periaortic lymph node measuring 1.7 cm. The appearance was suspicious for metastatic involvement. He was seen for a follow-up visit on 06/12/2018. He was not overtly symptomatic. A follow-up CT of the abdomen/pelvis on 06/20/2018 showed progressive enlargement of the left periaortic lymph node, at that point measuring 2.5 x 2.2 cm. As it was clearly enlarging and indicative of metastatic disease, he was advised to undergo chemotherapy with 4 cycles of etoposide/cisplatin. However, as he wished to avoid chemotherapy if at all possible, he was given the option to have treatment with radiation as an alternative. He then completed radiation to periaortic lymph nodes on 09/13/2018 to a total dose of 3600 cGy. He continued follow-up with Dr. Olvera after the radiation. His surveillance CT abdomen/pelvis on 06/21/2019 showed residual left periaortic lymph node measuring 8.5 mm compared to 10.5 mm on the prior study from November 2018. Lung nodules in the right middle lobe and at the right lung base also appeared stable. There were no other interval changes reported. Chest x-ray on 10/16/2019 showed no concerning abnormalities. On 11/07/2019 he had presented with an obvious mass in the left supraclavicular area. At that point Dr. Olvera had recommended further evaluation with PET/CT and with needle biopsy of the supraclavicular mass. Neither of these were done. On 11/25/2019 he presented to the emergency room with multiple complaints, including chest pain, shortness of breath, and difficulty swallowing. His neck CT at that time showed a large heterogeneous mass in the posterior mediastinum encasing the descending thoracic aorta and with displacement of the pulmonary arteries, trachea, and esophagus. There was a necrotic mass in the left supraclavicular region measuring 5.9 x 4.6 cm consistent with adenopathy. On the chest CT the mediastinal mass was noted to measure 14.0 x 9.7 x 8.1 cm. Numerous calcified and partially calcified pulmonary nodules appeared stable. There was no evidence of disease progression in the abdomen/pelvis. He was transferred to [facility] for admission. His further evaluation there included needle biopsy of the supraclavicular mass, which should confirm recurrent seminoma. His tumor markers included elevated LDH at 1094 units/L, AFP 2.5 ng/mL, and mildly elevated beta-hCG at 5.3 mIU/mL. TTE showed low normal systolic function and external pressure and of the left atrium from the mediastinal mass. Brain MRI was normal. Pulmonary function studies showed FEV1 at 57% of predicted. The DLCO was low at 57%, but was at 78% when adjusted for alveolar volume. He was discharged with instructions to follow-up here for chemotherapy. He has had no other ongoing medical illnesses, and he has had no other surgeries. He has a history of smoking 1 pack of cigarettes daily for more than 20 years. He has been trying to quit. INTERIM HISTORY: He began his 1st of 4 planned cycles of chemotherapy with cisplatin/etoposide on 12/09/2019. He experienced significant nausea with the chemotherapy, despite antiemetic therapy with dexamethasone, ondansetron, and Lorazepam. He also tried Zyprexa, but tolerated it poorly. At day 15 he was neutropenic, ANC 500. He was treated with Neupogen and he was given empiric antibiotic coverage with Levaquin. He proceeded with cycle 2 on 12/30/2019. He was given Neulasta prophylactically with that cycle, and I also had him start Marinol/Compazine for nausea/anorexia. He continued to have significant nausea and fatigue with the chemotherapy, but his blood counts remained adequate, and he was able to continue with cycle 3 on 01/20/2020. He is seen for a scheduled visit. He indicates that his last cycle of treatment was not as bad. He had some nausea/vomiting for the first 2 days, but none after that. He says he has been eating good and sleeping good. His energy is still iffy and he tires after 2 to 3 minutes of activity. His ECOG score is 2. He has no fever or night sweats. He has had no mouth sores. He occasionally gets short of breath. He has just a little bit of cough. He does not complain of chest pain. He has been taking Tums at bedtime, which has helped with the acid reflux and with the nausea during the night. Bowel and bladder function have been okay. He has no headache or dizziness and he has no focal neurologic symptoms. Medications: Allergy 1 Tablet (of 10 mg) Oral daily, Cymbalta 1 (20 mg) Capsule Delayed Release Particles Oral daily, Levothyroxine Sodium 1 Tablet (of 150 mcg) Oral daily, LORazepam 0.5 - 1 Tablet (of 1 mg) Oral t.i.d. PRN, Morphine Sulfate 1 Tablet (of 15 mg) Oral q for 4 hours PRN, Pantoprazole Sodium 1 Tablet (of 40 mg) Tablet, enteric coated Oral daily, Prochlorperazine Maleate 1 Tablet (of 10 mg) Oral t.i.d. PRN, tiZANidine HCl 1 (4 mg) Tablet Oral q 4 hours PRN, Zofran 1 Tablet (of 4 mg) Oral q 8 hours PRN Allergies: Penicillins and Sulfa Antibiotics. Review of Systems: Constitutional - His energy is iffy. He is up and around at home, but he tires quickly. Appetite is better. His weight is down another 2 pounds. No fever or night sweats. ECOG score is 2, ENMT - No sinus congestion/drainage. No mouth sores. No sore throat or difficulty swallowing, Hematologic/Lymphatic - No abnormal bruising or bleeding, Respiratory - He sometimes feels short of breath. He still has a little bit of cough. No pleuritic pain or hemoptysis, Cardiovascular - No angina pain. No palpitations, Gastrointestinal - He had nauses for the first 2 days of his last treatment, but none since then. No heartburn or acid reflux. No diarrhea or constipation. No blood in the stool or black stools, Genitourinary (M) - No dysuria or hematuria. No urinary frequency. No urgency or incontinence, Musculoskeletal - No joint or bone pain, Integumentary - No skin complications, Neurologic - No headache or dizziness. No numbness/paresthesias or other focal neurologic symptoms, Psychiatric - No anxiety or depression. No insomnia. Vital Signs: Performed on Feb 10, 2020 08:40 Height - 62.00 in Weight - 194.4 lbs (LOW) BSA - 1.89 sq.m BMI - 35.56 (HIGH) Temperature - 97.8 F (LOW) Pulse - 82 /min Respiration - 18 /min BP - 110/70 mm(hg) O2 Sat - 98 % Pain - 0 Physical Examination: Constitutional - He appears somewhat weak generally, Eyes - Sclerae nonicteric. Conjunctivae clear, ENMT - No lesions noted in the oral cavity, Hematologic/Lymphatic - There is no residual mass in the left supraclavicular fossa. There is currenty no cervical, clavicular or axillary adenopathy, Respiratory - Lungs sound clear, Cardiovascular - Heart rhythm is regular. There is no murmur, gallop, or rub noted, Abdomen - Soft. Liver and spleen are not enlarged. There is no abdominal mass or ascites noted. There is no inguinal adenopathy, Extremities - No edema, Neurologic - No focal neurologic deficits noted. Lab/Imaging: Test performed on Feb 10, 2020 08:20 LDH (Total) 177 U/L Sodium 140 mmol/L Potassium 3.5 mmol/L Chloride 98 mmol/L CO2 29 mmol/L Anion Gap 16.5 BUN 6 mg/dL Creatinine 0.6 mg/dL Cr Clearance (Est) 225.5500 mL/min eGFR 150.8 mL/min Glucose 105 mg/dL Calcium 9.4 mg/dL Protein, Total 6.3 g/dL Albumin 3.7 g/dL Globulin 2.6 g/dL Bilirubin, Total 0.2 mg/dL ALT (SGPT) 7 U/L AST (SGOT) 10 U/L Alkaline Phosphatase 96 IU/L WBC 13.8 10 3/uL RBC 2.97 10 6/uL HGB 9.3 g/dL HCT 28.8 % MCV 97.0 fL MCH 31.3 pg MCHC 32.3 g/dL RDW 19.5 % Platelet Count 350 10 3/cmm MPV 8.7 fL Neutrophils 11.4 10 3/uL Lymphocytes 0.9 10 3/uL Monocytes 1.0 10 3/uL Eosinophils 0.0 10 3/uL Basophils 0.1 10 3/uL Neutrophil % 82.4 % Lymphocyte % 6.6 % Monocyte % 7.1 % Eosinophil % 0.2 % Basophils % 0.4 % Impression: 1. Patient with classic seminoma involving the left testicle. By clinical evaluation, his disease appeared to be stage IS (pT1, N0, M0, S1) at initial diagnosis in in August 2017. 2. He underwent left radical orchiectomy on 09/25/2017. His preoperative tumor markers showed mildly elevated LDH with normal alpha-fetoprotein and beta-hCG levels. 3. His staging PET/CT showed bilateral subcentimeter pulmonary nodules which were FDG negative and indeterminate for metastatic disease. A left thyroid nodule was suspicious for neoplasia. On further evaluation by Dr. Lackey he was found to have bilateral thyroid nodules, both of which showed indeterminate cytopathology on FNA biopsy. These were ultimately determined to be benign. 4. He was intially followed on active surveillance. His restaging CT scans of the chest, abdomen, and pelvis on 05/21/2018 showed stable bilateral pulmonary nodules, but there was interval development of a 1.7 cm left periaortic lymph node. 5. A follow-up CT abdomen/pelvis on 06/20/2018 showed further enlargement of the left periaortic lymph node, at that point measuring 2.5 x 2.2 cm. The appearance was clearly consistent with metastatic disease, which changed his disease to stage IIA (pT1, cN1, M0, S1). He opted to have treatment with radiation, completed on 09/13/2018 to a total dose of 3600 cGy. 6. On 11/07/2019 he presented with a left supraclavicular mass. PET/CT and needle biopsy were recommended, but not completed. On 11/25/[address] was admitted to [facility] after presenting to the emergency room with shortness of breath and difficulty swallowing. He had CT evidence of left supraclavicular mass measuring 5.9 x 4.6 cm and mediastinal mass measuring 14.0 x 9.7 x 8.1 cm. Needle biopsy of the mass confirmed recurrent seminoma. As such, his disease is now stage IIIB (pT1, N1, M1a). He began cycle 1 of chemotherapy with cisplatin/etoposide on 12/09/2019. He has been having significant nausea with the chemotherapy, and he also has weakness/fatigue with very limited activity. He became neutropenic at day 15, but he recovered uneventfully with Neupogen. Overall, he experienced significant treatment-related side effects, but he was able to continue his chemotherapy on schedule and he has now completed 3 cycles of treatment. He was given Neulasta prophylactically beginning with cycle 2, and his granulocyte count has remained adequate. He is now moderately anemic. He continues to have significant fatigue, but he is having less nausea. Plan: He will proceed with cycle 4 of cisplatin/etoposide. The dosages will remain the same. His anti-emetic regimen also will remain the same. He will be given Neulasta prophylactically. He will be scheduled for a follow-up visit in 1 month, and he will have restaging CT scans with that visit. Signed By: Allen Russell M.D. <<Signature on File>>
[2020-02-11] MEDS: metoclopramide 5 mg/mL SDV 2 mL 10 MG IV ×2 (09:52→13:42)
[2020-02-11] MEDS: LORazepam 2 mg/mL INJ 1 mL 1 MG IV ×2 (09:54→13:40)
[2020-02-11] MEDS: potassium chloride 20 MEQ in sodium chloride 0.9% 500 ML 250 MEQ IV (12:50)
[2020-02-11] MEDS: FUROsemide 10 mg/mL SDV 2mL 20 MG IV (12:50)
[2020-02-12] MEDS: LORazepam 2 mg/mL INJ 1 mL 1 MG IV ×2 (08:49→13:00)
[2020-02-12] MEDS: metoclopramide 5 mg/mL SDV 2 mL 10 MG IV ×2 (08:49→12:59)
[2020-02-12] MEDS: sodium chloride 0.9% 250 ML 75 ML IV (08:58)
[2020-02-12] MEDS: FUROsemide 10 mg/mL SDV 2mL 20 MG IV (13:01)
[2020-02-12] MEDS: potassium chloride 20 MEQ in sodium chloride 0.9% 500 ML 250 MEQ IV (13:02)
[2020-02-13] MEDS: sodium chloride 0.9% 250 ML 300 ML IV (08:34)
[2020-02-13] MEDS: metoclopramide 5 mg/mL SDV 2 mL 10 MG IV ×2 (08:34→13:31)
[2020-02-13] MEDS: LORazepam 2 mg/mL INJ 1 mL 1 MG IV ×2 (08:35→13:33)
[2020-02-13] MEDS: FUROsemide 10 mg/mL SDV 2mL 20 MG IV (12:20)
[2020-02-13] MEDS: potassium chloride 20 MEQ in sodium chloride 0.9% 500 ML 250 MEQ IV (12:21)
[2020-02-14] MEDS: sodium chloride 0.9% 250 ML 75 ML IV (08:58)
[2020-02-14] MEDS: LORazepam 2 mg/mL INJ 1 mL 1 MG IV (08:58)
[2020-02-14] MEDS: metoclopramide 5 mg/mL SDV 2 mL 10 MG IV (09:12)
[2020-02-14] MEDS: pegfilgrastim 6 mg/0.6 mL Kit (onpro) SUBCUT (12:29)
[2020-02-14] MEDS: FUROsemide 10 mg/mL SDV 2mL 20 MG IV (12:57)
[2020-02-14] MEDS: potassium chloride 20 MEQ in sodium chloride 0.9% 500 ML 250 MEQ IV (12:59)
== END 2020-02-27 23:59 | disposition home or self-care (01) ==
LOC: ONCMED 06:49
PROVIDERS: Family Provider Nurse Practitioner; PCP Nurse Practitioner; Visit Provider Internal Medicine Medical Oncology
DX: Z51.11 Encounter for antineoplastic chemotherapy (principal); C62.12 Malignant neoplasm of descended left testis; C77.0 Secondary and unspecified malignant neoplasm of lymph nodes of head, face and neck; R91.1 Solitary pulmonary nodule; E04.1 Nontoxic single thyroid nodule; D70.9 Neutropenia, unspecified; Z79.899 Other long term (current) drug therapy
CPT/HCPCS: 36415; 80053; 83615; 85025; 96366; 96367; 96372; 96374; 96375; 96376; 96413; 96417; 99214; J1100; J1200; J1453; J1940; J2060; J2405; J2469; J2505; J2765; J3475; J3480; J3490; J7030; J7040; J7050; J9060; J9181

== ENCOUNTER 2020-03-19 07:12 | Outpatient (RCR) | payer MEDICAID, SELFPAY ==
[2020-03-19 09:50] LABS: Basophils # 0.1 10^3/uL (0.0-0.1); Basophils % 1.2 %; Eosinophils # 0.1 10^3/uL (0.0-0.8); Eosinophils % 0.8 %; Hematocrit 34.3 % (42.0-52.0); Lymphocytes # 0.7 10^3/uL (0.8-4.8); Lymphocytes % 6.5 %; Mean Corpuscular HGB Conc 32.1 g/dL (30.0-36.0); Mean Corpuscular Hemoglobin 33.1 pg (28.0-34.0); Mean Corpuscular Volume 103.3 fL (80-94); Mean Platelet Volume 8.6 fL (7.4-10.4); Monocytes # 0.8 10^3/uL (0.2-0.9); Monocytes % 6.8 %; Neutrophils # 9.3 10^3/uL (1.8-7.7); Neutrophils % 84.4 %; Nucleated Red Blood Cells % 0 %; Platelet Count 387 10^3/cmm (130-400); Red Blood Count 3.32 10^6/uL (4.1-5.3)
[2020-03-19 10:15] LABS: Tumor Marker Alpha Fetoprotein 3.5 ng/mL (0-8.3)
[2020-03-19 10:16] LABS: Alanine Aminotransferase 6 U/L (0-41); Albumin Level 4.3 g/dL (3.5-5.2); Alkaline Phosphatase 91 IU/L (40-130); Anion Gap 15.1 (5-19); Aspartate Amino Transferase 9 U/L (0-40); Blood Urea Nitrogen 6 mg/dL (6-20); Calcium 9.2 mg/dL (8.5-10.5); Carbon Dioxide 28 mmol/L (22-29); Chloride 99 mmol/L (98-107); Free T4 Free Thyroxine 1.56 ng/dL (0.82-1.77); Globulin 2.2 g/dL (1.3-4.6); Glomerular Filtration Rate 186.1 mL/min (90-130); Glucose 103 mg/dL (65-115); Lactate Dehydrogenase 101 U/L (135-225); Osmolality Calculated 282 mOsm/kg (285-295); Potassium 4.1 mmol/L (3.5-5.1); Sodium 138 mmol/L (136-145); Thyroid Stimulating Hormone 0.16 uIU/mL (0.27-4.20); Total Bilirubin 0.3 mg/dL (0.15-1.2); Total Protein 6.5 g/dL (6.6-8.7)
[2020-03-19 10:54] LABS: HCG Tumor Marker 1 mIU/mL (0-3)
--- NOTE | 2020-03-22 20:11 | ONC FU_ITS ---
Dr. Russell Patient Follow-Up Note Patient: Macario Porter Unit #: [id number]: 1980 Dicatated By: Allen Russell M.D.Date of Visit:March 19, 2020 Onc Med Follow-up/Prog Note Chief Complaint: Testicular cancer. History of Present Illness: This is a 39 year-old man with classic seminoma involving the left testicle, by clinical evaluation his disease was stage IS (pT1, N0, M0, S1) at initial diagnosis, but with subsequent progression to stage IIIB (pT1, N1, M1a). On 09/20/2017 he presented to the emergency room with pain in the left testicle, which had been getting worse over a couple of months. He also could feel a hard spot in the testicle. Testicular ultrasound showed enlarged left testicle measuring 5.8 x 4.6 x 5.8 cm with diffusely heterogeneous appearance, worrisome for neoplasm. His chest x-ray was unremarkable. He was referred to Dr. Yeager. On 09/25/2017 he underwent left radical orchiectomy. He tolerated the procedure well. His preoperative tumor markers included LDH mildly elevated at 335/241 U/L, AFP 4.3 ng/ML, and beta hCG < 1 mIU/mL. His staging CT abdomen/pelvis on 09/28/2017 showed subcentimeter retroperitoneal lymph nodes. The largest was in the para-aortic area and measured 9 mm. Also noted were multiple subcentimeter nodules at the right lung base, metastasis not excluded. There was a 2 cm lytic area without associated bone destruction in the left ilium. This was thought to most likely represent a benign lesion. Pathology showed an enlarged testis measuring 7.1 x 4.7 cm. The parenchyma was almost completely effaced by tumor measuring 6.9 x 4.5 cm. The tunica was noted to be intact. Histology showed germ cell neoplasm felt to be most consistent with classic seminoma with a component of IGCN. The immunoperoxidase panel showed that the tumor was positive for CD-117, PLAP, and OCT 3/4. It was negative for alpha-fetoprotein, inhibin, CK-cocktail, SCOTT, CD-34, and CEA. The beta hCG showed scattered rare positive cells. I had seen him initially on 10/06/2017. We discussed the possibility of immediate, short course adjuvant chemotherapy versus active surveillance. He opted for surveillance. He completed his staging with PET/CT on 11/27/2017. It showed a single left external iliac lymph node felt to most likely represent postoperative inflammatory changes. There was no other lymphadenopathy noted. Bilateral subcentimeter pulmonary nodules showed no focal increase in FDG activity and were felt to be intermediate for metastatic involvement. A focus of increased metabolic activity in the left thyroid lobe anteriorly appeared to be associated with a nodular density, and it was felt to be suspicious for neoplasia. Given those findings, he continued active surveillance was recommended for the seminoma. He was seen by Dr. Lackey in regard to the thyroid nodules. FNA biopsies of a 2.0 cm right thyroid nodule and a 1.4 cm left thyroid nodule both showed indeterminate cytopathology. They were ultimately confirmed to be benign. His surveillance CT scans of chest, abdomen, and pelvis on 05/21/2018 showed stable bilateral lung nodule. However, the abdomen/pelvis showed interval development of nonenlarged periaortic lymph node measuring 1.7 cm. The appearance was suspicious for metastatic involvement. He was seen for a follow-up visit on 06/12/2018. He was not overtly symptomatic. A follow-up CT of the abdomen/pelvis on 06/20/2018 showed progressive enlargement of the left periaortic lymph node, at that point measuring 2.5 x 2.2 cm. As it was clearly enlarging and indicative of metastatic disease, he was advised to undergo chemotherapy with 4 cycles of etoposide/cisplatin. However, as he wished to avoid chemotherapy if at all possible, he was given the option to have treatment with radiation as an alternative. He then completed radiation to periaortic lymph nodes on 09/13/2018 to a total dose of 3600 cGy. He continued follow-up with Dr. Olvera after the radiation. His surveillance CT abdomen/pelvis on 06/21/2019 showed residual left periaortic lymph node measuring 8.5 mm compared to 10.5 mm on the prior study from November 2018. Lung nodules in the right middle lobe and at the right lung base also appeared stable. There were no other interval changes reported. Chest x-ray on 10/16/2019 showed no concerning abnormalities. On 11/07/2019 he had presented with an obvious mass in the left supraclavicular area. At that point Dr. Olvera had recommended further evaluation with PET/CT and with needle biopsy of the supraclavicular mass. Neither of these were done. On 11/25/2019 he presented to the emergency room with multiple complaints, including chest pain, shortness of breath, and difficulty swallowing. His neck CT at that time showed a large heterogeneous mass in the posterior mediastinum encasing the descending thoracic aorta and with displacement of the pulmonary arteries, trachea, and esophagus. There was a necrotic mass in the left supraclavicular region measuring 5.9 x 4.6 cm consistent with adenopathy. On the chest CT the mediastinal mass was noted to measure 14.0 x 9.7 x 8.1 cm. Numerous calcified and partially calcified pulmonary nodules appeared stable. There was no evidence of disease progression in the abdomen/pelvis. He was transferred to [facility] for admission. His further evaluation there included needle biopsy of the supraclavicular mass, which should confirm recurrent seminoma. His tumor markers included elevated LDH at 1094 units/L, AFP 2.5 ng/mL, and mildly elevated beta-hCG at 5.3 mIU/mL. TTE showed low normal systolic function and external pressure and of the left atrium from the mediastinal mass. Brain MRI was normal. Pulmonary function studies showed FEV1 at 57% of predicted. The DLCO was low at 57%, but was at 78% when adjusted for alveolar volume. He was discharged with instructions to follow-up here for chemotherapy. He has had no other ongoing medical illnesses, and he has had no other surgeries. He has a history of smoking 1 pack of cigarettes daily for more than 20 years. He has been trying to quit. INTERIM HISTORY: He began his 1st of 4 planned cycles of chemotherapy with cisplatin/etoposide on 12/09/2019. He experienced significant nausea with the chemotherapy, despite antiemetic therapy with dexamethasone, ondansetron, and Lorazepam. He also tried Zyprexa, but tolerated it poorly. At day 15 he was neutropenic, ANC 500. He was treated with Neupogen and he was given empiric antibiotic coverage with Levaquin. He proceeded with cycle 2 on 12/30/2019. He was given Neulasta prophylactically with that cycle, and I also had him start Marinol/Compazine for nausea/anorexia. He continued to have significant nausea and fatigue with the chemotherapy, but his blood counts remained adequate. He was able to continue with cycle 3 on 01/20/2020 and with cycle 4 on 02/10/2020. He is seen for a followup visit. He is really not feeling any better. His energy is still not good and his activity is very limited. ECOG score is 3. He says that eating is also still a real problem, as he is having nausea and early satiety. He has had some vomiting. His weight is down 9 pounds. He has not had fever or night sweats. He complains of having cold chills. He has some allergy related sinus symptoms and cough. He sometimes has shortness of breath. He does not complain of chest pain. His bowels are so-so. He is having some abdominal pain. Bladder function has been okay. He is having some pain in the neck and shoulders. He has no numbness/paresthesia or other focal neurologic symptoms. Medications: Allergy 1 Tablet (of 10 mg) Oral daily, Cymbalta 1 (20 mg) Capsule Delayed Release Particles Oral daily, Levothyroxine Sodium 1 Tablet (of 150 mcg) Oral daily, LORazepam 0.5 - 1 Tablet (of 1 mg) Oral t.i.d. PRN, Morphine Sulfate 1 Tablet (of 15 mg) Oral q for 4 hours PRN, Pantoprazole Sodium 1 Tablet (of 40 mg) Tablet, enteric coated Oral daily PRN, Prochlorperazine Maleate 1 Tablet (of 10 mg) Oral t.i.d. PRN, tiZANidine HCl 1 (4 mg) Tablet Oral q 4 hours PRN, Zofran 1 Tablet (of 4 mg) Oral q 8 hours PRN Allergies: Penicillins and Sulfa Antibiotics. Review of Systems: Constitutional - His energy is still not good and has not gotten significantly better. He says that eating is also still a real problem. He has nausea and early satiety. His weight is down 9 pounds. No fever or night sweats. He complains of having cold chills. ECOG score is 3, ENMT - He has allergy related sinus symptoms. No mouth sores. No sore throat or difficulty swallowing, Hematologic/Lymphatic - No abnormal bruising or bleeding, Respiratory - He sometimes has shortness of breath. He cough with his allergies. No pleuritic pain or hemoptysis, Cardiovascular - No angina pain. No palpitations, Gastrointestinal - He has nausea and early satiety. He has some vomiting. No heartburn or acid reflux. Bowels are just so-so. He is having abdominal pain. No blood in the stool or black stools, Genitourinary (M) - No dysuria or hematuria. No urinary frequency. No urgency or incontinence, Musculoskeletal - He has pain in his neck and shoulders, Integumentary - No skin complications, Neurologic - No headache or dizziness. No numbness/paresthesias or other focal neurologic symptoms, Psychiatric - No anxiety or depression. He has difficulty sleeping. Vital Signs: Performed on March 19, 2020 11:01 Height - 71.00 in (HIGH) Weight - 185.8 lbs (HIGH) BSA - 2.04 sq.m BMI - 25.91 Temperature - 97.9 F (LOW) Pulse - 91 /min Respiration - 24 /min BP - 114/65 mm(hg) O2 Sat - 98 % Pain - 6 Performed on March 19, 2020 09:51 Height - 62.00 in Weight - 185.6 lbs (LOW) BSA - 1.85 sq.m BMI - 33.95 (HIGH) Physical Examination: Constitutional - He appears somewhat weak generally, Eyes - Sclerae nonicteric. Conjunctivae clear, ENMT - No lesions noted in the oral cavity, Hematologic/Lymphatic - There is no cervical, clavicular, or axillary adenopathy. There is no residual mass in the left supraclavicular fossa, Respiratory - Lungs sound clear, Cardiovascular - Heart rhythm is regular. There is no murmur, gallop, or rub noted, Abdomen - Soft. Liver and spleen are not enlarged. There is no abdominal mass or ascites noted. There is no inguinal adenopathy, Extremities - No edema, Neurologic - No focal neurologic deficits noted. Lab/Imaging: Test performed on March 19, 2020 09:30 HCG, Serum (Quant) 1 mIU/mL LDH (Total) 101 U/L Sodium 138 mmol/L Potassium 4.1 mmol/L Chloride 99 mmol/L CO2 28 mmol/L Anion Gap 15.1 BUN 6 mg/dL Creatinine 0.5 mg/dL Cr Clearance (Est) 238.79 mL/min eGFR 186.1 mL/min Glucose 103 mg/dL Calcium 9.2 mg/dL Protein, Total 6.5 g/dL Albumin 4.3 g/dL Globulin 2.2 g/dL Bilirubin, Total 0.3 mg/dL ALT (SGPT) 6 U/L AST (SGOT) 9 U/L Alkaline Phosphatase 91 IU/L WBC 11.0 10 3/uL RBC 3.32 10 6/uL HGB 11.0 g/dL HCT 34.3 % MCV 103.3 fL MCH 33.1 pg MCHC 32.1 g/dL RDW 17.0 % Platelet Count 387 10 3/cmm MPV 8.6 fL Neutrophils 9.3 10 3/uL Lymphocytes 0.7 10 3/uL Monocytes 0.8 10 3/uL Eosinophils 0.1 10 3/uL Basophils 0.1 10 3/uL Neutrophil % 84.4 % Lymphocyte % 6.5 % Monocyte % 6.8 % Eosinophil % 0.8 % Basophils % 1.2 % AFP 3.5 ng/mL Impression: 1. Patient with classic seminoma involving the left testicle. By clinical evaluation, his disease appeared to be stage IS (pT1, N0, M0, S1) at initial diagnosis in in August 2017. 2. He underwent left radical orchiectomy on 09/25/2017. His preoperative tumor markers showed mildly elevated LDH with normal alpha-fetoprotein and beta-hCG levels. 3. His staging PET/CT showed bilateral subcentimeter pulmonary nodules which were FDG negative and indeterminate for metastatic disease. A left thyroid nodule was suspicious for neoplasia. On further evaluation by Dr. Lackey he was found to have bilateral thyroid nodules, both of which showed indeterminate cytopathology on FNA biopsy. These were ultimately determined to be benign. 4. He was intially followed on active surveillance. His restaging CT scans of the chest, abdomen, and pelvis on 05/21/2018 showed stable bilateral pulmonary nodules, but there was interval development of a 1.7 cm left periaortic lymph node. 5. A follow-up CT abdomen/pelvis on 06/20/2018 showed further enlargement of the left periaortic lymph node, at that point measuring 2.5 x 2.2 cm. The appearance was clearly consistent with metastatic disease, which changed his disease to stage IIA (pT1, cN1, M0, S1). He opted to have treatment with radiation, completed on 09/13/2018 to a total dose of 3600 cGy. 6. On 11/07/2019 he presented with a left supraclavicular mass. PET/CT and needle biopsy were recommended, but not completed. On 11/25/2019 he was admitted to [facility] after presenting to the emergency room with shortness of breath and difficulty swallowing. He had CT evidence of left supraclavicular mass measuring 5.9 x 4.6 cm and mediastinal mass measuring 14.0 x 9.7 x 8.1 cm. Needle biopsy of the mass confirmed recurrent seminoma. As such, his disease is now stage IIIB (pT1, N1, M1a). He began cycle 1 of chemotherapy with cisplatin/etoposide on 12/09/2019. He has been having significant nausea with the chemotherapy, and he also has weakness/fatigue with very limited activity. He became neutropenic at day 15, but he recovered uneventfully with Neupogen. Overall, he experienced significant treatment-related side effects, but he was able to continue his chemotherapy on schedule. Neulasta was added beginning with cycle 2, and his blood counts thereafter remained adequate. He continued, though, to have severe nausea and fatigue throughout his course of treatment. He began his fourth cycle on 02/10/2020. At this point his blood counts are adequate. Clinically he appears to have had a good response to the chemotherapy, and his LDH level has declined to 101 U/L compared to apretreatment level of 1094 U/L. He continues to have significant chemotherapy related side effects, including fatigue and nausea/anorexia. Plan: He will be scheduled for restaging CT scans. Assuming he has had a complete response, he will then be followed on observation/expectant management. He will be eligible to have his Port-A-Cath removed. I will tentatively plan a follow-up visit in 1 month. In the meantime, I did recommend that he try increasing Marinol up to 10 mg 3 times daily for the nausea/anorexia. He will continue lorazepam as needed. Signed By: Allen Russell M.D. <<Signature on File>>
== END 2020-03-29 23:59 | disposition home or self-care (01) ==
LOC: ONCMED 07:12
PROVIDERS: PCP Nurse Practitioner; Visit Provider Internal Medicine Medical Oncology
DX: C62.12 Malignant neoplasm of descended left testis (principal); C77.0 Secondary and unspecified malignant neoplasm of lymph nodes of head, face and neck; R11.0 Nausea; R63.0 Anorexia; Z90.79 Acquired absence of other genital organ(s)
CPT/HCPCS: 36591; 80053; 82105; 83615; 84439; 84443; 84702; 85025; 99214

== ENCOUNTER 2020-03-31 10:06 | Outpatient (CLI) | payer MEDICAID, SELFPAY ==
--- NOTE | 2020-03-31 10:12 | CT_ITS ---
WS: [id number] Examination: CT of the abdomen pelvis with IV contrast. CT chest. Contrast: Omnipaque 375 mL. HISTORY: Abdominal pain FINDINGS: Increased vascularity in the subcutaneous region bilaterally are seen worse on the left. On previous exam there was noted a mass along the mediastinal structure encasing the descending aorta today's exam shows a mediastinal mass still present. This mass is markedly smaller than previous exa m and is producing no changes on the descending thoracic aorta. Previous exam there is considerable c ompression of the aorta as well as the mago region Hodgkin's disease should be included in the diff erential diagnosis. The mass described on previous exam involving the lower neck area on the left is not seen on these se ctions provided. The pulmonary vasculature days essentially normal. No filling defects or defects are seen. The aorta was normal. The abdominal aorta was normal. The liver showed normal appearance no infiltrating changes. The gallbladder was normal. The pancreas show no mass effect. The stomach and spleen were normal The adrenal glands both were normal. Both kidneys appear to be of normal configuration. No masses or stones hydronephrosis or stones are s een. The large bowel showed fecal stasis appendix was not identified. Small bowel follow-through showed normal reveles of the small bowel with no thickening no obstructing l esion. The descending colon showed normal appearance the sigmoid colon was normal. The urinary bladder was normal. The prostate 4.75 x 1.0 cm the seminal vesicles were normal. Anorectal area was normal. No hernias were seen. The bony pelvis and lumbar spine showed no destructive changes. CT/CT chest abd pel w con* IMPRESSION: The middle mediastinal mass is approximately one half the size of previous exam and markedly improved The mass is not producing any deformity on the aorta the day The mass described along the lower left neck area is not identified on this sara dy this area was not scanned. The abdomen show normal appearance with no masses lymphadenopathy diverticulosi s.
[2020-03-31] MEDS: iohexol 300 mg/mL 50 mL Btl PO (10:30)
[2020-03-31] MEDS: iohexol 300 mg/mL 100 mL Btl IV (11:47)
== END 2020-03-31 10:07 | disposition home or self-care (01) ==
LOC: RAD 10:09
PROVIDERS: PCP Nurse Practitioner; Visit Provider Internal Medicine Medical Oncology
DX: R10.9 Unspecified abdominal pain (principal); R22.1 Localized swelling, mass and lump, neck
CPT/HCPCS: 71260; 74177

== ENCOUNTER 2020-05-20 14:03 | Outpatient (CLI) | payer MEDICAID, SELFPAY ==
--- NOTE | 2020-05-20 19:49 | ONC FU_ITS ---
Dr. Russell Patient Follow-Up Note Patient: Macario Porter Unit #: [id number]: 1980 Dicatated By: Allen Russell M.D.Date of Visit:May 20, 2020 Onc Med Follow-up/Prog Note Chief Complaint: Testicular cancer. History of Present Illness: This is a 39 year-old man with classic seminoma involving the left testicle, by clinical evaluation his disease was stage IS (pT1, N0, M0, S1) at initial diagnosis, but with subsequent progression to stage IIIB (pT1, N1, M1a). On 09/20/2017 he presented to the emergency room with pain in the left testicle, which had been getting worse over a couple of months. He also could feel a hard spot in the testicle. Testicular ultrasound showed enlarged left testicle measuring 5.8 x 4.6 x 5.8 cm with diffusely heterogeneous appearance, worrisome for neoplasm. His chest x-ray was unremarkable. He was referred to Dr. Yeager. On 09/25/2017 he underwent left radical orchiectomy. He tolerated the procedure well. His preoperative tumor markers included LDH mildly elevated at 335/241 U/L, AFP 4.3 ng/ML, and beta hCG < 1 mIU/mL. His staging CT abdomen/pelvis on 09/28/2017 showed subcentimeter retroperitoneal lymph nodes. The largest was in the para-aortic area and measured 9 mm. Also noted were multiple subcentimeter nodules at the right lung base, metastasis not excluded. There was a 2 cm lytic area without associated bone destruction in the left ilium. This was thought to most likely represent a benign lesion. Pathology showed an enlarged testis measuring 7.1 x 4.7 cm. The parenchyma was almost completely effaced by tumor measuring 6.9 x 4.5 cm. The tunica was noted to be intact. Histology showed germ cell neoplasm felt to be most consistent with classic seminoma with a component of IGCN. The immunoperoxidase panel showed that the tumor was positive for CD-117, PLAP, and OCT 3/4. It was negative for alpha-fetoprotein, inhibin, CK-cocktail, SCOTT, CD-34, and CEA. The beta hCG showed scattered rare positive cells. I had seen him initially on 10/06/2017. We discussed the possibility of immediate, short course adjuvant chemotherapy versus active surveillance. He opted for surveillance. He completed his staging with PET/CT on 11/27/2017. It showed a single left external iliac lymph node felt to most likely represent postoperative inflammatory changes. There was no other lymphadenopathy noted. Bilateral subcentimeter pulmonary nodules showed no focal increase in FDG activity and were felt to be intermediate for metastatic involvement. A focus of increased metabolic activity in the left thyroid lobe anteriorly appeared to be associated with a nodular density, and it was felt to be suspicious for neoplasia. Given those findings, he continued active surveillance was recommended for the seminoma. He was seen by Dr. Lackey in regard to the thyroid nodules. FNA biopsies of a 2.0 cm right thyroid nodule and a 1.4 cm left thyroid nodule both showed indeterminate cytopathology. They were ultimately confirmed to be benign. His surveillance CT scans of chest, abdomen, and pelvis on 05/21/2018 showed stable bilateral lung nodule. However, the abdomen/pelvis showed interval development of nonenlarged periaortic lymph node measuring 1.7 cm. The appearance was suspicious for metastatic involvement. He was seen for a follow-up visit on 06/12/2018. He was not overtly symptomatic. A follow-up CT of the abdomen/pelvis on 06/20/2018 showed progressive enlargement of the left periaortic lymph node, at that point measuring 2.5 x 2.2 cm. As it was clearly enlarging and indicative of metastatic disease, he was advised to undergo chemotherapy with 4 cycles of etoposide/cisplatin. However, as he wished to avoid chemotherapy if at all possible, he was given the option to have treatment with radiation as an alternative. He then completed radiation to periaortic lymph nodes on 09/13/2018 to a total dose of 3600 cGy. He continued follow-up with Dr. Olvera after the radiation. His surveillance CT abdomen/pelvis on 06/21/2019 showed residual left periaortic lymph node measuring 8.5 mm compared to 10.5 mm on the prior study from November 2018. Lung nodules in the right middle lobe and at the right lung base also appeared stable. There were no other interval changes reported. Chest x-ray on 10/16/2019 showed no concerning abnormalities. On 11/07/2019 he had presented with an obvious mass in the left supraclavicular area. At that point Dr. Olvera had recommended further evaluation with PET/CT and with needle biopsy of the supraclavicular mass. Neither of these were done. On 11/25/2019 he presented to the emergency room with multiple complaints, including chest pain, shortness of breath, and difficulty swallowing. His neck CT at that time showed a large heterogeneous mass in the posterior mediastinum encasing the descending thoracic aorta and with displacement of the pulmonary arteries, trachea, and esophagus. There was a necrotic mass in the left supraclavicular region measuring 5.9 x 4.6 cm consistent with adenopathy. On the chest CT the mediastinal mass was noted to measure 14.0 x 9.7 x 8.1 cm. Numerous calcified and partially calcified pulmonary nodules appeared stable. There was no evidence of disease progression in the abdomen/pelvis. He was transferred to [facility] for admission. His further evaluation there included needle biopsy of the supraclavicular mass, which should confirm recurrent seminoma. His tumor markers included elevated LDH at 1094 units/L, AFP 2.5 ng/mL, and mildly elevated beta-hCG at 5.3 mIU/mL. TTE showed low normal systolic function and external pressure and of the left atrium from the mediastinal mass. Brain MRI was normal. Pulmonary function studies showed FEV1 at 57% of predicted. The DLCO was low at 57%, but was at 78% when adjusted for alveolar volume. He was discharged with instructions to follow-up here for chemotherapy. He has had no other ongoing medical illnesses, and he has had no other surgeries. He has a history of smoking 1 pack of cigarettes daily for more than 20 years. He has been trying to quit. INTERIM HISTORY: He began his 1st of 4 planned cycles of chemotherapy with cisplatin/etoposide on 12/09/2019. He experienced significant nausea with the chemotherapy, despite antiemetic therapy with dexamethasone, ondansetron, and Lorazepam. He also tried Zyprexa, but tolerated it poorly. At day 15 he was neutropenic, ANC 500. He was treated with Neupogen and he was given empiric antibiotic coverage with Levaquin. He proceeded with cycle 2 on 12/30/2019. He was given Neulasta prophylactically with that cycle, and I also had him start Marinol/Compazine for nausea/anorexia. He continued to have significant nausea and fatigue with the chemotherapy, but his blood counts remained adequate. He was able to continue with cycle 3 on 01/20/2020 and with cycle 4 on 02/10/2020. Restaging CT scans on 03/31/2020 showed marked improvement in the mediastinal mass, reported to be less than 1/2 the size compared to the pretreatment study. On my own review it appears to be significantly more than that. He is seen for a followup visit. He is feeling much better now. He has had improvement in his energy/activity tolerance. He is doing light work now. ECOG score is 1. His appetite is still iffy. He has lost weight. He has not had fever. He has a little bit of sweating at night. He still sometimes loses his breath. He has just a little bit of cough. He does not complain of chest pain. He still has occasional episodes of nausea, sometimes with dry heaves. He had a pretty significant episode yesterday. He has no other GI or complaints. He has pain in the right shoulder area associated with his port. He has no other joint or bone pain. He has been having a numbing sensation in his legs after he gets up from a sitting position. Medications: Cymbalta 1 Capsule (of 60 mg) Capsule Delayed Release Particles Oral daily, Levothyroxine Sodium 1 Tablet (of 150 mcg) Oral daily, LORazepam 0.5 - 1 Tablet (of 1 mg) Oral t.i.d. PRN Allergies: Penicillins and Sulfa Antibiotics. Review of Systems: Constitutional - He is feeling much better. His energy has improved significantly. He is doing light work. Appetite is still iffy. He has lost weight. He has not had fever. He has a little bit of sweating at night. ECOG score is 1, ENMT - He has sinus drainage. No mouth sores. No sore throat or difficulty swallowing, Hematologic/Lymphatic - No abnormal bruising or bleeding, Respiratory - He still sometimes loses his breath. He has a little bit of cough. No pleuritic pain or hemoptysis, Cardiovascular - No angina pain. No palpitations, Gastrointestinal - He still has occasional nausea/dry heaves. He had a significant episode yesterday. No heartburn or acid reflux. No diarrhea or constipation. No blood in the stool or black stools, Genitourinary (M) - No dysuria or hematuria. No urinary frequency. No urgency or incontinence, Musculoskeletal - He is still having pain in his shoulder area related to his port, Integumentary - No skin complications, Neurologic - No headache or dizziness. He has been having brief episodes of a numbing sensation in his legs after getting up from sitting. No other focal neurologic symptoms, Psychiatric - No anxiety or depression. He does not sleep well. Vital Signs: Performed on May 20, 2020 14:24 Height - 71.00 in Weight - 178.8 lbs (LOW) BSA - 2.01 sq.m BMI - 24.94 Temperature - 98.0 F (LOW) Pulse - 82 /min Respiration - 20 /min BP - 106/72 mm(hg) O2 Sat - 96 % Pain - 4 Physical Examination: Constitutional - He looks pretty good generally, Eyes - Sclerae nonicteric. Conjunctivae clear, ENMT - No lesions noted in the oral cavity, Hematologic/Lymphatic - There is no residual mass in the left supraclavicular fossa and there is no other cervical, clavicular, or axillary adenopathy noted, Respiratory - Lungs sound clear, Cardiovascular - Heart rhythm is regular. There is no murmur, gallop, or rub noted, Abdomen - Soft. Liver and spleen are not enlarged. There is no abdominal mass or ascites noted. There is no inguinal adenopathy, Extremities - No edema, Neurologic - No focal neurologic deficits noted. Impression: 1. Patient with classic seminoma involving the left testicle. By clinical evaluation, his disease appeared to be stage IS (pT1, N0, M0, S1) at initial diagnosis in in August 2017. 2. He underwent left radical orchiectomy on 09/25/2017. His preoperative tumor markers showed mildly elevated LDH with normal alpha-fetoprotein and beta-hCG levels. 3. His staging PET/CT showed bilateral subcentimeter pulmonary nodules which were FDG negative and indeterminate for metastatic disease. A left thyroid nodule was suspicious for neoplasia. On further evaluation by Dr. Lackey he was found to have bilateral thyroid nodules, both of which showed indeterminate cytopathology on FNA biopsy. These were ultimately determined to be benign. 4. He was intially followed on active surveillance. His restaging CT scans of the chest, abdomen, and pelvis on 05/21/2018 showed stable bilateral pulmonary nodules, but there was interval development of a 1.7 cm left periaortic lymph node. 5. A follow-up CT abdomen/pelvis on 06/20/2018 showed further enlargement of the left periaortic lymph node, at that point measuring 2.5 x 2.2 cm. The appearance was clearly consistent with metastatic disease, which changed his disease to stage IIA (pT1, cN1, M0, S1). He opted to have treatment with radiation, completed on 09/13/2018 to a total dose of 3600 cGy. 6. On 11/07/2019 he presented with a left supraclavicular mass. PET/CT and needle biopsy were recommended, but not completed. On 11/25/2019 he was admitted to [facility] after presenting to the emergency room with shortness of breath and difficulty swallowing. He had CT evidence of left supraclavicular mass measuring 5.9 x 4.6 cm and mediastinal mass measuring 14.0 x 9.7 x 8.1 cm. Needle biopsy of the mass confirmed recurrent seminoma. As such, his disease is now stage IIIB (pT1, N1, M1a). He began cycle 1 of chemotherapy with cisplatin/etoposide on 12/09/2019. He has been having significant nausea with the chemotherapy, and he also has weakness/fatigue with very limited activity. He became neutropenic at day 15, but he recovered uneventfully with Neupogen. Overall, he experienced significant treatment-related side effects, but he was able to continue his chemotherapy on schedule. Neulasta was added beginning with cycle 2, and his blood counts thereafter remained adequate. He continued, though, to have severe nausea and fatigue throughout his course of treatment. He began his fourth cycle on 02/10/2020. At this point his blood counts are adequate. Clinically he appeared to have had a good response to the chemotherapy, and his LDH level declined to 101 U/L compared to apretreatment level of 1094 U/L. His restaging CT scans on 03/31/2020 showed marked improvement in the mediastinal mass. Overall, he did show a very good response to the chemotherapy. He had significant toxicity throughout his treatment, but he does appear to be showing recovery now. Plan: He remains on observation/expectant management. I will see him again in 1 month. In the meantime, I will arrange for him to see Dr. Jacob for removal of the Port-A-Cath. Signed By: Allen Russell M.D. <<Signature on File>>
== END 2020-05-20 14:04 | disposition home or self-care (01) ==
LOC: ONCMED 14:06
PROVIDERS: PCP Nurse Practitioner; Visit Provider Internal Medicine Medical Oncology
DX: C77.0 Secondary and unspecified malignant neoplasm of lymph nodes of head, face and neck (principal); Z85.47 Personal history of malignant neoplasm of testis; R93.89 Abnormal findings on diagnostic imaging of other specified body structures; Z92.21 Personal history of antineoplastic chemotherapy; Z92.3 Personal history of irradiation; Z90.79 Acquired absence of other genital organ(s)
CPT/HCPCS: 96523; G0463

== ENCOUNTER 2020-06-29 08:57 | Outpatient (CLI) | payer MEDICAID, SELFPAY ==
[2020-06-29 09:25] LABS: Basophils # 0.1 10^3/uL (0.0-0.1); Basophils % 1.5 %; Eosinophils # 0.2 10^3/uL (0.0-0.8); Eosinophils % 2.5 %; Hematocrit 39.6 % (42.0-52.0); Hemoglobin 13.1 g/dL (11.7-16.6); Lymphocytes # 1.1 10^3/uL (0.8-4.8); Lymphocytes % 18.3 %; Mean Corpuscular HGB Conc 33.1 g/dL (30.0-36.0); Mean Corpuscular Volume 96.6 fL (80-94); Mean Platelet Volume 8.4 fL (7.4-10.4); Monocytes # 0.4 10^3/uL (0.2-0.9); Monocytes % 6.1 %; Neutrophils % 71.4 %; Nucleated Red Blood Cells % 0 %; Platelet Count 313 10^3/cmm (130-400); Red Cell Distribution Width 14.3 % (12.1-15.1)
[2020-06-29 09:51] LABS: Thyroid Stimulating Hormone 7.72 uIU/mL (0.27-4.20); Tumor Marker Alpha Fetoprotein 3.7 ng/mL (0-8.3)
[2020-06-29 09:56] LABS: HCG Tumor Marker < 1 mIU/mL (0-3)
[2020-06-29 10:02] LABS: Alanine Aminotransferase 11 U/L (0-41); Albumin Level 4.3 g/dL (3.5-5.2); Alkaline Phosphatase 92 IU/L (40-130); Aspartate Amino Transferase 9 U/L (0-40); Blood Urea Nitrogen 6 mg/dL (6-20); Calcium 9.4 mg/dL (8.5-10.5); Carbon Dioxide 26 mmol/L (22-29); Chloride 105 mmol/L (98-107); Globulin 2.5 g/dL (1.3-4.6); Glomerular Filtration Rate 107.6 mL/min (90-130); Glucose 107 mg/dL (65-115); Lactate Dehydrogenase 118 U/L (135-225); Osmolality Calculated 286 mOsm/kg (285-295); Sodium 140 mmol/L (136-145); Total Bilirubin 0.4 mg/dL (0.15-1.2); Total Protein 6.8 g/dL (6.6-8.7)
--- NOTE | 2020-06-29 11:21 | ONC FU_ITS ---
Dr. Russell Patient Follow-Up Note Patient: Macario Porter Unit #: [id number]: [id number] Dicatated By: Allen Russell M.D.Date of Visit:Jun 29, 2020 Onc Med Follow-up/Prog Note Chief Complaint: Testicular cancer. History of Present Illness: This is a 40 year-old man with classic seminoma involving the left testicle, by clinical evaluation his disease was stage IS (pT1, N0, M0, S1) at initial diagnosis, but with subsequent progression to stage IIIB (pT1, N1, M1a). On 09/20/2017 he presented to the emergency room with pain in the left testicle, which had been getting worse over a couple of months. He also could feel a hard spot in the testicle. Testicular ultrasound showed enlarged left testicle measuring 5.8 x 4.6 x 5.8 cm with diffusely heterogeneous appearance, worrisome for neoplasm. His chest x-ray was unremarkable. He was referred to Dr. Yeager. On 09/25/2017 he underwent left radical orchiectomy. He tolerated the procedure well. His preoperative tumor markers included LDH mildly elevated at 335/241 U/L, AFP 4.3 ng/ML, and beta hCG < 1 mIU/mL. His staging CT abdomen/pelvis on 09/28/2017 showed subcentimeter retroperitoneal lymph nodes. The largest was in the para-aortic area and measured 9 mm. Also noted were multiple subcentimeter nodules at the right lung base, metastasis not excluded. There was a 2 cm lytic area without associated bone destruction in the left ilium. This was thought to most likely represent a benign lesion. Pathology showed an enlarged testis measuring 7.1 x 4.7 cm. The parenchyma was almost completely effaced by tumor measuring 6.9 x 4.5 cm. The tunica was noted to be intact. Histology showed germ cell neoplasm felt to be most consistent with classic seminoma with a component of IGCN. The immunoperoxidase panel showed that the tumor was positive for CD-117, PLAP, and OCT 3/4. It was negative for alpha-fetoprotein, inhibin, CK-cocktail, SCOTT, CD-34, and CEA. The beta hCG showed scattered rare positive cells. I had seen him initially on 10/06/2017. We discussed the possibility of immediate, short course adjuvant chemotherapy versus active surveillance. He opted for surveillance. He completed his staging with PET/CT on 11/27/2017. It showed a single left external iliac lymph node felt to most likely represent postoperative inflammatory changes. There was no other lymphadenopathy noted. Bilateral subcentimeter pulmonary nodules showed no focal increase in FDG activity and were felt to be intermediate for metastatic involvement. A focus of increased metabolic activity in the left thyroid lobe anteriorly appeared to be associated with a nodular density, and it was felt to be suspicious for neoplasia. Given those findings, he continued active surveillance was recommended for the seminoma. He was seen by Dr. Lackey in regard to the thyroid nodules. FNA biopsies of a 2.0 cm right thyroid nodule and a 1.4 cm left thyroid nodule both showed indeterminate cytopathology. They were ultimately confirmed to be benign. His surveillance CT scans of chest, abdomen, and pelvis on 05/21/2018 showed stable bilateral lung nodule. However, the abdomen/pelvis showed interval development of nonenlarged periaortic lymph node measuring 1.7 cm. The appearance was suspicious for metastatic involvement. He was seen for a follow-up visit on 06/12/2018. He was not overtly symptomatic. A follow-up CT of the abdomen/pelvis on 06/20/2018 showed progressive enlargement of the left periaortic lymph node, at that point measuring 2.5 x 2.2 cm. As it was clearly enlarging and indicative of metastatic disease, he was advised to undergo chemotherapy with 4 cycles of etoposide/cisplatin. However, as he wished to avoid chemotherapy if at all possible, he was given the option to have treatment with radiation as an alternative. He then completed radiation to periaortic lymph nodes on 09/13/2018 to a total dose of 3600 cGy. He continued follow-up with Dr. Olvera after the radiation. His surveillance CT abdomen/pelvis on 06/21/2019 showed residual left periaortic lymph node measuring 8.5 mm compared to 10.5 mm on the prior study from November 2018. Lung nodules in the right middle lobe and at the right lung base also appeared stable. There were no other interval changes reported. Chest x-ray on 10/16/2019 showed no concerning abnormalities. On 11/07/2019 he had presented with an obvious mass in the left supraclavicular area. At that point Dr. Olvera had recommended further evaluation with PET/CT and with needle biopsy of the supraclavicular mass. Neither of these were done. On 11/25/2019 he presented to the emergency room with multiple complaints, including chest pain, shortness of breath, and difficulty swallowing. His neck CT at that time showed a large heterogeneous mass in the posterior mediastinum encasing the descending thoracic aorta and with displacement of the pulmonary arteries, trachea, and esophagus. There was a necrotic mass in the left supraclavicular region measuring 5.9 x 4.6 cm consistent with adenopathy. On the chest CT the mediastinal mass was noted to measure 14.0 x 9.7 x 8.1 cm. Numerous calcified and partially calcified pulmonary nodules appeared stable. There was no evidence of disease progression in the abdomen/pelvis. He was transferred to [facility] for admission. His further evaluation there included needle biopsy of the supraclavicular mass, which should confirm recurrent seminoma. His tumor markers included elevated LDH at 1094 units/L, AFP 2.5 ng/mL, and mildly elevated beta-hCG at 5.3 mIU/mL. TTE showed low normal systolic function and external pressure and of the left atrium from the mediastinal mass. Brain MRI was normal. Pulmonary function studies showed FEV1 at 57% of predicted. The DLCO was low at 57%, but was at 78% when adjusted for alveolar volume. He was discharged with instructions to follow-up here for chemotherapy. He began his 1st of 4 planned cycles of chemotherapy with cisplatin/etoposide on 12/09/2019. He experienced significant nausea with the chemotherapy, despite antiemetic therapy with dexamethasone, ondansetron, and Lorazepam. He also tried Zyprexa, but tolerated it poorly. At day 15 he was neutropenic, ANC 500. He was treated with Neupogen and he was given empiric antibiotic coverage with Levaquin. He proceeded with cycle 2 on 12/30/2019. He was given Neulasta prophylactically with that cycle, and I also had him start Marinol/Compazine for nausea/anorexia. He continued to have significant nausea and fatigue with the chemotherapy, but his blood counts remained adequate. He was able to continue with cycle 3 on 01/20/2020 and with cycle 4 on 02/10/2020. Restaging CT scans on 03/31/2020 showed marked improvement in the mediastinal mass, reported to be less than 1/2 the size compared to the pretreatment study. On my own review it appears to be significantly more than that. He then continued on observation/surveillance. He has had no other ongoing medical illnesses. His other surgeries include thyroidectomy in 2017 and arthroscopic right knee surgery in January 2019. He has a history of smoking 1 pack of cigarettes daily for more than 20 years. He has been trying to quit. INTERIM HISTORY: He is seen for a followup visit. He continues to feel better with further time for recovery from his chemotherapy. He has better energy and has been more active and doing a lot more, though he still wears out. His ECOG score is 1. He has good appetite. His weight is up about 10 pounds, but he is still down dramatically from his weight prior to becoming ill, which was over 300 pounds. He does not have fever, night sweats, or hot flashes. He does report having some chills. He has some sinus drainage first thing in the morning and he has occasional cough. He sometimes has to take a series of big breaths, but his breathing is otherwise okay. He does not complain of chest pain. He has no GI or complaints. He still has some pain in his right knee and leg. He has occasional orthostatic lightheadedness. He has some residual numbness/tingling in his feet following the chemotherapy. Medications: Cymbalta 1 Capsule (of 60 mg) Capsule Delayed Release Particles Oral daily, Levothyroxine Sodium 1 Tablet (of 150 mcg) Oral daily, LORazepam 0.5 - 1 Tablet (of 1 mg) Oral t.i.d. PRN Allergies: Penicillins and Sulfa Antibiotics. Review of Systems: Constitutional - His energy and activity tolerance have continued to improve, though he still wears out. His appetite is good. His weight is up about 10 pounds, though still down dramatically from his weight prior to becoming ill. He has no fever, night sweats, or hot flashes. ECOG score is 1, ENMT - He has sinus drainage first thing in the morning. No mouth sores. No sore throat or difficulty swallowing, Hematologic/Lymphatic - No abnormal bruising or bleeding, Respiratory - He sometimes has to take some deep breaths. His breating is otherwise OK. He occasionally has cough. No pleuritic pain or hemoptysis, Cardiovascular - No angina pain. No palpitations, Gastrointestinal - No nausea or vomiting. No heartburn or acid reflux. No diarrhea or constipation. No blood in the stool or black stools, Genitourinary (M) - No dysuria or hematuria. No urinary frequency. No urgency or incontinence, Musculoskeletal - He still has some pain in his right knee and leg, Neurologic - No headache. He has occasional orthostatic lightheadedness. He has numbness/tingling in his feet. No other focal neurologic symptoms, Psychiatric - He has some depression. He has his days and nights mixed up. He is trying to get that straightened out. Vital Signs: Performed on Jun 29, 2020 10:39 Height - 71.00 in Weight - 185.8 lbs (HIGH) BSA - 2.04 sq.m BMI - 25.91 Temperature - 98.4 F Pulse - 113 /min (HIGH) Respiration - 20 /min BP - 117/80 mm(hg) O2 Sat - 95 % (LOW) Pain - 0 Physical Examination: Constitutional - He looks pretty good generally, Eyes - Sclerae nonicteric. Conjunctivae clear, ENMT - No lesions noted in the oral cavity, Hematologic/Lymphatic - No cervical, clavicular, or axillary adenopathy, Respiratory - Lungs sound clear, Cardiovascular - Heart rhythm is regular. There is no murmur, gallop, or rub noted, Abdomen - Soft. Liver and spleen are not enlarged. There is no abdominal mass or ascites noted. There is no inguinal adenopathy, Extremities - No edema, Neurologic - No focal neurologic deficits noted. Lab/Imaging: Test performed on Jun 29, 2020 09:12 HCG, Serum (Quant) < 1 mIU/mL LDH (Total) 118 U/L Sodium 140 mmol/L TSH 7.72 uIU/mL Potassium 4.0 mmol/L Chloride 105 mmol/L CO2 26 mmol/L Anion Gap 13.0 BUN 6 mg/dL Creatinine 0.8 mg/dL Cr Clearance (Est) 147.78 mL/min eGFR 107.6 mL/min Glucose 107 mg/dL Calcium 9.4 mg/dL Protein, Total 6.8 g/dL Albumin 4.3 g/dL Globulin 2.5 g/dL Bilirubin, Total 0.4 mg/dL ALT (SGPT) 11 U/L AST (SGOT) 9 U/L Alkaline Phosphatase 92 IU/L AFP 3.7 ng/mL Test performed on Jun 29, 2020 08:52 WBC 6.0 10 3/uL RBC 4.10 10 6/uL HGB 13.1 g/dL HCT 39.6 % MCV 96.6 fL MCH 32.0 pg MCHC 33.1 g/dL RDW 14.3 % Platelet Count 313 10 3/cmm MPV 8.4 fL Neutrophils 4.30 10 3/uL Lymphocytes 1.1 10 3/uL Monocytes 0.4 10 3/uL Eosinophils 0.2 10 3/uL Basophils 0.1 10 3/uL Neutrophil % 71.4 % Lymphocyte % 18.3 % Monocyte % 6.1 % Eosinophil % 2.5 % Basophils % 1.5 % NRBC % 0 % Impression: 1. Patient with classic seminoma involving the left testicle. By clinical evaluation, his disease appeared to be stage IS (pT1, N0, M0, S1) at initial diagnosis in in August 2017. 2. He underwent left radical orchiectomy on 09/25/2017. His preoperative tumor markers showed mildly elevated LDH with normal alpha-fetoprotein and beta-hCG levels. 3. His staging PET/CT showed bilateral subcentimeter pulmonary nodules which were FDG negative and indeterminate for metastatic disease. A left thyroid nodule was suspicious for neoplasia. On further evaluation by Dr. Lackey he was found to have bilateral thyroid nodules, both of which showed indeterminate cytopathology on FNA biopsy. These were ultimately determined to be benign. 4. He was intially followed on active surveillance. His restaging CT scans of the chest, abdomen, and pelvis on 05/21/2018 showed stable bilateral pulmonary nodules, but there was interval development of a 1.7 cm left periaortic lymph node. 5. A follow-up CT abdomen/pelvis on 06/20/2018 showed further enlargement of the left periaortic lymph node, at that point measuring 2.5 x 2.2 cm. The appearance was clearly consistent with metastatic disease, which changed his disease to stage IIA (pT1, cN1, M0, S1). He opted to have treatment with radiation, completed on 09/13/2018 to a total dose of 3600 cGy. 6. On 11/07/2019 he presented with a left supraclavicular mass. PET/CT and needle biopsy were recommended, but not completed. On 11/25/2019 he was admitted to [facility] after presenting to the emergency room with shortness of breath and difficulty swallowing. He had CT evidence of left supraclavicular mass measuring 5.9 x 4.6 cm and mediastinal mass measuring 14.0 x 9.7 x 8.1 cm. Needle biopsy of the mass confirmed recurrent seminoma. As such, his disease is now stage IIIB (pT1, N1, M1a). He began cycle 1 of chemotherapy with cisplatin/etoposide on 12/09/2019. He has been having significant nausea with the chemotherapy, and he also has weakness/fatigue with very limited activity. He became neutropenic at day 15, but he recovered uneventfully with Neupogen. Overall, he experienced significant treatment-related side effects, but he was able to continue his chemotherapy on schedule. Neulasta was added beginning with cycle 2, and his blood counts thereafter remained adequate. He continued, though, to have severe nausea and fatigue throughout his course of treatment. He began his 4th cycle on 02/10/2020. Clinically he appeared to have a very good response to the chemotherapy, and his LDH level declined to 101 U/L compared to a pretreatment level of 1094 U/L. His restaging CT scans on 03/31/2020 showed marked improvement in the mediastinal mass. He did experience significant toxicity throughout his treatment, but during follow-up he has been showing gradual recovery. Plan: He remains on observation/expectant management. I will see him again in 2 months. He will have surveillance CT scans with that visit. In the meantime, I will again arrange for him to see Dr. Jacob for removal of the Port-A-Cath, as he had to cancel last time due to illness. Signed By: Allen Russell M.D. <<Signature on File>>
== END 2020-06-29 08:58 | disposition home or self-care (01) ==
LOC: ONCMED 08:59
PROVIDERS: PCP Nurse Practitioner; Visit Provider Internal Medicine Medical Oncology
DX: Z08 Encounter for follow-up examination after completed treatment for malignant neoplasm (principal); Z85.47 Personal history of malignant neoplasm of testis; C77.0 Secondary and unspecified malignant neoplasm of lymph nodes of head, face and neck; Z90.79 Acquired absence of other genital organ(s)
CPT/HCPCS: 36591; 80053; 82105; 83615; 84443; 84702; 85025; 99214

== ENCOUNTER 2020-08-24 06:39 | Outpatient (CLI) | payer MEDICAID, SELFPAY ==
--- NOTE | 2020-08-24 06:56 | CT_ITS ---
WS: [id number] CT CHEST, ABDOMEN AND PELVIS WITH CONTRAST. HISTORY: TESTICULAR CANCER TECHNIQUE: Contiguous 5 mm axial imaging performed through the chest, abdomen and pelvis with IV cont rast, oral contrast has been provided. Coronal and sagittal reformats chest. Coronal and sagittal ref ormats through the abdomen and pelvis. All CT scans at [facility] use at least one of the se dose optimization techniques: automated exposure control; mA and/or kV adjustment per patient size (includes targeted exams where dose is matched to clinical indication); or iterative reconstruction. CONTRAST: Omnipaque 300; 95 mL IV. DLP: 1549.07 mGy.cm COMPARISON: 03/31/[address]: Continued significant improvement in the infiltrative soft tissue mass in the posterior med iastinum since 11/26/2019. Also moderate improvement since 03/31/2020. There is still mild soft tissue t hickening surrounding the esophagus beginning near the mago and extending inferiorly. Increased sof t tissue in the posterior mediastinal fat in the retrocrural space. There is mild soft tissue thicken ing surrounding approximately 50% of the descending aorta. No new lymph nodes. No LEFT supraclavicula r lymph node identified today. 7 mm noncalcified nodule in the RIGHT middle lobe is stable. There are a few scattered opacifications in the periphery of the RIGHT lower lung field which are stable. Part ially calcified nodule in the posterior LEFT lower lobe. These opacifications and nodules have been p resent since 10/18/2017. No pericardial or pleural effusions. Heart size is normal. Normal size aorta . RIGHT subclavian Port-A-Cath is present. Abdomen CT: Liver, spleen, pancreas, gallbladder, adrenal glands, kidneys and aorta are unchanged. No ascites. No adenopathy. Visualized GI tract is negative. Pelvic CT: No free fluid or adenopathy. Urinary bladder is well distended. Mild increase in the thoracic kyphosis and mild spondylitic changes. CT/CT chest abd pel w con* IMPRESSION: 1. Continued significant decrease in size of the posterior mediastinal infiltr ating soft tissue partially encasing the esophagus and partially encasing the d escending aorta. 2. No new or progressive adenopathy. 3. Multiple RIGHT middle and bilateral lower lobe pulmonary nodules which are stable. 4. No metastatic disease or adenopathy in the abdomen or pelvis.
[2020-08-24] MEDS: iohexol 300 mg/mL 50 mL Btl PO (08:27)
[2020-08-24] MEDS: iohexol 300 mg/mL 100 mL Btl IV (08:28)
== END 2020-08-24 06:40 | disposition home or self-care (01) ==
LOC: CT 06:41
PROVIDERS: PCP Nurse Practitioner; Visit Provider Internal Medicine Medical Oncology
DX: C62.12 Malignant neoplasm of descended left testis (principal); R91.8 Other nonspecific abnormal finding of lung field
CPT/HCPCS: 71260; 74177

== ENCOUNTER 2020-08-31 13:43 | Outpatient (CLI) | payer MEDICAID, SELFPAY ==
[2020-08-31 14:10] LABS: Basophils # 0.1 10^3/uL (0.0-0.1); Basophils % 1.5 %; Eosinophils # 0.2 10^3/uL (0.0-0.8); Eosinophils % 2.1 %; Hematocrit 40.4 % (42.0-52.0); Hemoglobin 13.2 g/dL (11.7-16.6); Lymphocytes # 1.2 10^3/uL (0.8-4.8); Lymphocytes % 16.9 %; Mean Corpuscular HGB Conc 32.7 g/dL (30.0-36.0); Mean Corpuscular Hemoglobin 32.6 pg (28.0-34.0); Mean Corpuscular Volume 99.8 fL (80-94); Mean Platelet Volume 8.7 fL (7.4-10.4); Monocytes # 0.4 10^3/uL (0.2-0.9); Monocytes % 5.6 %; Neutrophils # 5.23 10^3/uL (1.8-7.7); Neutrophils % 73.3 %; Nucleated Red Blood Cells % 0 %; Platelet Count 286 10^3/cmm (130-400); Red Blood Count 4.05 10^6/uL (4.1-5.3); Red Cell Distribution Width 13.9 % (12.1-15.1); White Blood Count 7.1 10^3/uL (4.0-10.0)
[2020-08-31 14:38] LABS: HCG Tumor Marker 1 mIU/mL (0-3); Thyroid Stimulating Hormone 1.04 uIU/mL (0.27-4.20); Tumor Marker Alpha Fetoprotein 3.8 ng/mL (0-8.3)
[2020-08-31 14:49] LABS: Alanine Aminotransferase 12 U/L (0-41); Albumin Level 4.4 g/dL (3.5-5.2); Alkaline Phosphatase 93 IU/L (40-130); Anion Gap 12.8 (5-19); Aspartate Amino Transferase 10 U/L (0-40); Blood Urea Nitrogen 8 mg/dL (6-20); Carbon Dioxide 27 mmol/L (22-29); Chloride 102 mmol/L (98-107); Globulin 2.1 g/dL (1.3-4.6); Glomerular Filtration Rate 125.5 mL/min (90-130); Glucose 117 mg/dL (65-115); Lactate Dehydrogenase 121 U/L (135-225); Osmolality Calculated 285 mOsm/kg (285-295); Potassium 3.8 mmol/L (3.5-5.1); Sodium 138 mmol/L (136-145); Total Bilirubin 0.2 mg/dL (0.15-1.2); Total Protein 6.5 g/dL (6.6-8.7)
--- NOTE | 2020-09-04 12:55 | ONC FU_ITS ---
Dr. Russell Patient Follow-Up Note Patient: Macario Porter Unit #: [id number]: 1980 Dicatated By: Allen Russell M.D.Date of Visit:Aug 31, 2020 Onc Med Follow-up/Prog Note Chief Complaint: Testicular cancer. History of Present Illness: This is a 40 year-old man with classic seminoma involving the left testicle, by clinical evaluation his disease was stage IS (pT1, N0, M0, S1) at initial diagnosis, but with subsequent progression to stage IIIB (pT1, N1, M1a). On 09/20/2017 he presented to the emergency room with pain in the left testicle, which had been getting worse over a couple of months. He also could feel a hard spot in the testicle. Testicular ultrasound showed enlarged left testicle measuring 5.8 x 4.6 x 5.8 cm with diffusely heterogeneous appearance, worrisome for neoplasm. His chest x-ray was unremarkable. He was referred to Dr. Yeager. On 09/25/2017 he underwent left radical orchiectomy. He tolerated the procedure well. His preoperative tumor markers included LDH mildly elevated at 335/241 U/L, AFP 4.3 ng/ML, and beta hCG < 1 mIU/mL. His staging CT abdomen/pelvis on 09/28/2017 showed subcentimeter retroperitoneal lymph nodes. The largest was in the para-aortic area and measured 9 mm. Also noted were multiple subcentimeter nodules at the right lung base, metastasis not excluded. There was a 2 cm lytic area without associated bone destruction in the left ilium. This was thought to most likely represent a benign lesion. Pathology showed an enlarged testis measuring 7.1 x 4.7 cm. The parenchyma was almost completely effaced by tumor measuring 6.9 x 4.5 cm. The tunica was noted to be intact. Histology showed germ cell neoplasm felt to be most consistent with classic seminoma with a component of IGCN. The immunoperoxidase panel showed that the tumor was positive for CD-117, PLAP, and OCT 3/4. It was negative for alpha-fetoprotein, inhibin, CK-cocktail, SCOTT, CD-34, and CEA. The beta hCG showed scattered rare positive cells. I had seen him initially on 10/06/2017. We discussed the possibility of immediate, short course adjuvant chemotherapy versus active surveillance. He opted for surveillance. He completed his staging with PET/CT on 11/27/2017. It showed a single left external iliac lymph node felt to most likely represent postoperative inflammatory changes. There was no other lymphadenopathy noted. Bilateral subcentimeter pulmonary nodules showed no focal increase in FDG activity and were felt to be intermediate for metastatic involvement. A focus of increased metabolic activity in the left thyroid lobe anteriorly appeared to be associated with a nodular density, and it was felt to be suspicious for neoplasia. Given those findings, he continued active surveillance was recommended for the seminoma. He was seen by Dr. Lackey in regard to the thyroid nodules. FNA biopsies of a 2.0 cm right thyroid nodule and a 1.4 cm left thyroid nodule both showed indeterminate cytopathology. They were ultimately confirmed to be benign. His surveillance CT scans of chest, abdomen, and pelvis on 05/21/2018 showed stable bilateral lung nodule. However, the abdomen/pelvis showed interval development of nonenlarged periaortic lymph node measuring 1.7 cm. The appearance was suspicious for metastatic involvement. He was seen for a follow-up visit on 06/12/2018. He was not overtly symptomatic. A follow-up CT of the abdomen/pelvis on 06/20/2018 showed progressive enlargement of the left periaortic lymph node, at that point measuring 2.5 x 2.2 cm. As it was clearly enlarging and indicative of metastatic disease, he was advised to undergo chemotherapy with 4 cycles of etoposide/cisplatin. However, as he wished to avoid chemotherapy if at all possible, he was given the option to have treatment with radiation as an alternative. He then completed radiation to periaortic lymph nodes on 09/13/2018 to a total dose of 3600 cGy. He continued follow-up with Dr. Olvera after the radiation. His surveillance CT abdomen/pelvis on 06/21/2019 showed residual left periaortic lymph node measuring 8.5 mm compared to 10.5 mm on the prior study from November 2018. Lung nodules in the right middle lobe and at the right lung base also appeared stable. There were no other interval changes reported. Chest x-ray on 10/16/2019 showed no concerning abnormalities. On 11/07/2019 he had presented with an obvious mass in the left supraclavicular area. At that point Dr. Olvera had recommended further evaluation with PET/CT and with needle biopsy of the supraclavicular mass. Neither of these were done. On 11/25/2019 he presented to the emergency room with multiple complaints, including chest pain, shortness of breath, and difficulty swallowing. His neck CT at that time showed a large heterogeneous mass in the posterior mediastinum encasing the descending thoracic aorta and with displacement of the pulmonary arteries, trachea, and esophagus. There was a necrotic mass in the left supraclavicular region measuring 5.9 x 4.6 cm consistent with adenopathy. On the chest CT the mediastinal mass was noted to measure 14.0 x 9.7 x 8.1 cm. Numerous calcified and partially calcified pulmonary nodules appeared stable. There was no evidence of disease progression in the abdomen/pelvis. He was transferred to [facility] for admission. His further evaluation there included needle biopsy of the supraclavicular mass, which should confirm recurrent seminoma. His tumor markers included elevated LDH at 1094 units/L, AFP 2.5 ng/mL, and mildly elevated beta-hCG at 5.3 mIU/mL. TTE showed low normal systolic function and external pressure and of the left atrium from the mediastinal mass. Brain MRI was normal. Pulmonary function studies showed FEV1 at 57% of predicted. The DLCO was low at 57%, but was at 78% when adjusted for alveolar volume. He was discharged with instructions to follow-up here for chemotherapy. He began his 1st of 4 planned cycles of chemotherapy with cisplatin/etoposide on 12/09/2019. He experienced significant nausea with the chemotherapy, despite antiemetic therapy with dexamethasone, ondansetron, and Lorazepam. He also tried Zyprexa, but tolerated it poorly. At day 15 he was neutropenic, ANC 500. He was treated with Neupogen and he was given empiric antibiotic coverage with Levaquin. He proceeded with cycle 2 on 12/30/2019. He was given Neulasta prophylactically with that cycle, and I also had him start Marinol/Compazine for nausea/anorexia. He continued to have significant nausea and fatigue with the chemotherapy, but his blood counts remained adequate. He was able to continue with cycle 3 on 01/20/2020 and with cycle 4 on 02/10/2020. Restaging CT scans on 03/31/2020 showed marked improvement in the mediastinal mass, reported to be less than 1/2 the size compared to the pretreatment study. On my own review it appears to be significantly more than that. He was then followed on observation/surveillance. He has had no other ongoing medical illnesses. His other surgeries include thyroidectomy in 2017 and arthroscopic right knee surgery in January 2019. He has a history of smoking 1 pack of cigarettes daily for more than 20 years. He has been trying to quit. INTERIM HISTORY: CT scans of the chest, abdomen, and pelvis on 08/24/2020 showed continued decrease in the size of the posterior mediastinal infiltrating soft tissue, but with this mild residual soft tissue thickening surrounding the esophagus beginning near the mago and extending inferiorly. Increased soft tissue was noted in the posterior mediastinal fat and the retrocrural space and there was mild soft tissue thickening surrounding approximately 50% of the descending aorta. There is no new or progressive adenopathy. Multiple right middle and bilateral lower lobe pulmonary nodules appeared stable. There is no metastatic disease or adenopathy noted in the abdomen/pelvis. He is seen for a follow-up visit. He continues to show improvement in his clinical status. He still has limited activity tolerance with ECOG score 1, but it is improving and in general he has been more active. He has good appetite. He has no fever or night sweats. He is still sometimes short of breath and he does have some cough. He does not complain of chest pain. He still has a little bit of nausea first thing in the morning. He has no other GI or complaints. He has pain in his right knee, which is chronic. He complains that his toes are still numb all the time. Medications: Cymbalta 1 Capsule (of 60 mg) Capsule Delayed Release Particles Oral daily, Levothyroxine Sodium 1 Tablet (of 150 mcg) Oral daily Allergies: Penicillins and Sulfa Antibiotics. Review of Systems: Constitutional - His energy continues to improve. He is more active. He is doing light work. Appetite is good. He has gained weight. He does not have fever, night sweats, or hot flashes. ECOG score is 1, ENMT - No sinus congestion/drainage. No mouth sores. No sore throat or difficulty swallowing, Hematologic/Lymphatic - No abnormal bruising or bleeding, Respiratory - He is still sometimes short of breath. No cough. No pleuritic pain or hemoptysis, Cardiovascular - No angina pain. No palpitations, Gastrointestinal - He has a little bit of nausea the first thing in the morning. No heartburn or acid reflux. No diarrhea or constipation. No blood in the stool or black stools, Genitourinary (M) - No dysuria or hematuria. No urinary frequency. No urgency or incontinence, Musculoskeletal - He has pain in his right knee, which is chronic, Integumentary - No skin rash, Neurologic - No headache or dizziness. He has numbness/tingling in his toes. No other focal neurologic symptoms, Psychiatric - His anxiety/depression is adequately managed. No insomnia. Vital Signs: Performed on Aug 31, 2020 15:34 Height - 71.00 in Weight - 208 lbs (HIGH) BSA - 2.14 sq.m BMI - 29.01 Temperature - 99.3 F (HIGH) Pulse - 84 /min Respiration - 16 /min BP - 121/71 mm(hg) O2 Sat - 96 % Pain - 0 Physical Examination: Constitutional - He looks good generally, Eyes - Sclerae nonicteric. Conjunctivae clear, ENMT - No lesions noted in the oral cavity, Hematologic/Lymphatic - No cervical, clavicular, or axillary adenopathy, Respiratory - Lungs sound clear, Cardiovascular - Heart rhythm is regular. There is no murmur, gallop, or rub noted, Abdomen - Soft. Liver and spleen are not enlarged. There is no abdominal mass or ascites noted. There is no inguinal adenopathy, Extremities - No edema, Neurologic - No focal neurologic deficits noted. Lab/Imaging: Test performed on Aug 31, 2020 13:56 HCG, Serum (Quant) 1 mIU/mL LDH (Total) 121 U/L Sodium 138 mmol/L TSH 1.04 uIU/mL Potassium 3.8 mmol/L Chloride 102 mmol/L CO2 27 mmol/L Anion Gap 12.8 BUN 8 mg/dL Creatinine 0.7 mg/dL Cr Clearance (Est) 189.07 mL/min eGFR 125.5 mL/min Glucose 117 mg/dL Osmolality - Calculated 285 mOsm/kg Calcium 9.0 mg/dL Protein, Total 6.5 g/dL Albumin 4.4 g/dL Globulin 2.1 g/dL Bilirubin, Total 0.2 mg/dL ALT (SGPT) 12 U/L AST (SGOT) 10 U/L Alkaline Phosphatase 93 IU/L WBC 7.1 10 3/uL RBC 4.05 10 6/uL HGB 13.2 g/dL HCT 40.4 % MCV 99.8 fL MCH 32.6 pg MCHC 32.7 g/dL RDW 13.9 % Platelet Count 286 10 3/cmm MPV 8.7 fL Neutrophils 5.23 10 3/uL Lymphocytes 1.2 10 3/uL Monocytes 0.4 10 3/uL Eosinophils 0.2 10 3/uL Basophils 0.1 10 3/uL Neutrophil % 73.3 % Lymphocyte % 16.9 % Monocyte % 5.6 % Eosinophil % 2.1 % Basophils % 1.5 % NRBC % 0 % AFP 3.8 ng/mL Impression: 1. Patient with classic seminoma involving the left testicle. By clinical evaluation, his disease appeared to be stage IS (pT1, N0, M0, S1) at initial diagnosis in in August 2017. 2. He underwent left radical orchiectomy on 09/25/2017. His preoperative tumor markers showed mildly elevated LDH with normal alpha-fetoprotein and beta-hCG levels. 3. His staging PET/CT showed bilateral subcentimeter pulmonary nodules which were FDG negative and indeterminate for metastatic disease. A left thyroid nodule was suspicious for neoplasia. On further evaluation by Dr. Lackey he was found to have bilateral thyroid nodules, both of which showed indeterminate cytopathology on FNA biopsy. These were ultimately determined to be benign. 4. He was intially followed on active surveillance. His restaging CT scans of the chest, abdomen, and pelvis on 05/21/2018 showed stable bilateral pulmonary nodules, but there was interval development of a 1.7 cm left periaortic lymph node. 5. A follow-up CT abdomen/pelvis on 06/20/2018 showed further enlargement of the left periaortic lymph node, at that point measuring 2.5 x 2.2 cm. The appearance was clearly consistent with metastatic disease, which changed his disease to stage IIA (pT1, cN1, M0, S1). He opted to have treatment with radiation, completed on 09/13/2018 to a total dose of 3600 cGy. 6. On 11/07/2019 he presented with a left supraclavicular mass. PET/CT and needle biopsy were recommended, but not completed. On 11/25/2019 he was admitted to [facility] after presenting to the emergency room with shortness of breath and difficulty swallowing. He had CT evidence of left supraclavicular mass measuring 5.9 x 4.6 cm and mediastinal mass measuring 14.0 x 9.7 x 8.1 cm. Needle biopsy of the mass confirmed recurrent seminoma. As such, his disease is now stage IIIB (pT1, N1, M1a). He began cycle 1 of chemotherapy with cisplatin/etoposide on 12/09/2019. He has been having significant nausea with the chemotherapy, and he also has weakness/fatigue with very limited activity. He became neutropenic at day 15, but he recovered uneventfully with Neupogen. Overall, he experienced significant treatment-related side effects, but he was able to continue his chemotherapy on schedule. Neulasta was added beginning with cycle 2, and his blood counts thereafter remained adequate. He continued, though, to have severe nausea and fatigue throughout his course of treatment. He began his 4th cycle on 02/10/2020. Clinically he appeared to have a very good response to the chemotherapy, and his LDH level declined to 101 U/L compared to a pretreatment level of 1094 U/L. His restaging CT scans on 03/31/2020 showed marked improvement in the mediastinal mass. He did experience significant toxicity throughout his treatment, but he has continued to show gradual improvement during follow-up, and his current surveillance CT scans also continue to show improvement. Plan: He remains on his active surveillance which for the first year will include office visits and tumor markers every 2 months and follow-up CT scans every 4 months. Signed By: Allen Russell M.D. <<Signature on File>>
== END 2020-08-31 13:44 | disposition home or self-care (01) ==
LOC: ONCMED 13:46
PROVIDERS: PCP Nurse Practitioner; Visit Provider Internal Medicine Medical Oncology
DX: C62.12 Malignant neoplasm of descended left testis (principal); C77.8 Secondary and unspecified malignant neoplasm of lymph nodes of multiple regions; E03.9 Hypothyroidism, unspecified; Z90.79 Acquired absence of other genital organ(s); Z92.3 Personal history of irradiation; Z92.21 Personal history of antineoplastic chemotherapy
CPT/HCPCS: 36591; 80053; 82105; 83615; 84443; 84702; 85025; G0463

== ENCOUNTER 2020-11-10 12:25 | Outpatient (CLI) | payer MEDICAID, SELFPAY ==
[2020-11-10 13:27] LABS: HCG Tumor Marker 1 mIU/mL (0-3)
[2020-11-10 13:38] LABS: Lactate Dehydrogenase 123 U/L (135-225)
[2020-11-10 14:38] LABS: Tumor Marker Alpha Fetoprotein 3.1 ng/mL (0-8.3)
--- NOTE | 2020-11-14 13:54 | ONC FU_ITS ---
Dr. Russell Patient Follow-Up Note Patient: Macario Porter Unit #: [id number]: [id number] Dicatated By: Allen Russell M.D.Date of Visit:Nov 10, 2020 Onc Med Follow-up/Prog Note Chief Complaint: Testicular cancer. History of Present Illness: This is a 40 year-old man with classic seminoma involving the left testicle, by clinical evaluation his disease was stage IS (pT1, N0, M0, S1) at initial diagnosis, but with subsequent progression to stage IIIB (pT1, N1, M1a). On 09/20/2017 he presented to the emergency room with pain in the left testicle, which had been getting worse over a couple of months. He also could feel a hard spot in the testicle. Testicular ultrasound showed enlarged left testicle measuring 5.8 x 4.6 x 5.8 cm with diffusely heterogeneous appearance, worrisome for neoplasm. His chest x-ray was unremarkable. He was referred to Dr. Yeager. On 09/25/2017 he underwent left radical orchiectomy. He tolerated the procedure well. His preoperative tumor markers included LDH mildly elevated at 335/241 U/L, AFP 4.3 ng/ML, and beta hCG < 1 mIU/mL. His staging CT abdomen/pelvis on 09/28/2017 showed subcentimeter retroperitoneal lymph nodes. The largest was in the para-aortic area and measured 9 mm. Also noted were multiple subcentimeter nodules at the right lung base, metastasis not excluded. There was a 2 cm lytic area without associated bone destruction in the left ilium. This was thought to most likely represent a benign lesion. Pathology showed an enlarged testis measuring 7.1 x 4.7 cm. The parenchyma was almost completely effaced by tumor measuring 6.9 x 4.5 cm. The tunica was noted to be intact. Histology showed germ cell neoplasm felt to be most consistent with classic seminoma with a component of IGCN. The immunoperoxidase panel showed that the tumor was positive for CD-117, PLAP, and OCT 3/4. It was negative for alpha-fetoprotein, inhibin, CK-cocktail, SCOTT, CD-34, and CEA. The beta hCG showed scattered rare positive cells. I had seen him initially on 10/06/2017. We discussed the possibility of immediate, short course adjuvant chemotherapy versus active surveillance. He opted for surveillance. He completed his staging with PET/CT on 11/27/2017. It showed a single left external iliac lymph node felt to most likely represent postoperative inflammatory changes. There was no other lymphadenopathy noted. Bilateral subcentimeter pulmonary nodules showed no focal increase in FDG activity and were felt to be intermediate for metastatic involvement. A focus of increased metabolic activity in the left thyroid lobe anteriorly appeared to be associated with a nodular density, and it was felt to be suspicious for neoplasia. Given those findings, he continued active surveillance was recommended for the seminoma. He was seen by Dr. Lackey in regard to the thyroid nodules. FNA biopsies of a 2.0 cm right thyroid nodule and a 1.4 cm left thyroid nodule both showed indeterminate cytopathology. They were ultimately confirmed to be benign. His surveillance CT scans of chest, abdomen, and pelvis on 05/21/2018 showed stable bilateral lung nodule. However, the abdomen/pelvis showed interval development of nonenlarged periaortic lymph node measuring 1.7 cm. The appearance was suspicious for metastatic involvement. He was seen for a follow-up visit on 06/12/2018. He was not overtly symptomatic. A follow-up CT of the abdomen/pelvis on 06/20/2018 showed progressive enlargement of the left periaortic lymph node, at that point measuring 2.5 x 2.2 cm. As it was clearly enlarging and indicative of metastatic disease, he was advised to undergo chemotherapy with 4 cycles of etoposide/cisplatin. However, as he wished to avoid chemotherapy if at all possible, he was given the option to have treatment with radiation as an alternative. He then completed radiation to periaortic lymph nodes on 09/13/2018 to a total dose of 3600 cGy. He continued follow-up with Dr. Olvera after the radiation. His surveillance CT abdomen/pelvis on 06/21/2019 showed residual left periaortic lymph node measuring 8.5 mm compared to 10.5 mm on the prior study from November 2018. Lung nodules in the right middle lobe and at the right lung base also appeared stable. There were no other interval changes reported. Chest x-ray on 10/16/2019 showed no concerning abnormalities. On 11/07/2019 he had presented with an obvious mass in the left supraclavicular area. At that point Dr. Olvera had recommended further evaluation with PET/CT and with needle biopsy of the supraclavicular mass. Neither of these were done. On 11/25/2019 he presented to the emergency room with multiple complaints, including chest pain, shortness of breath, and difficulty swallowing. His neck CT at that time showed a large heterogeneous mass in the posterior mediastinum encasing the descending thoracic aorta and with displacement of the pulmonary arteries, trachea, and esophagus. There was a necrotic mass in the left supraclavicular region measuring 5.9 x 4.6 cm consistent with adenopathy. On the chest CT the mediastinal mass was noted to measure 14.0 x 9.7 x 8.1 cm. Numerous calcified and partially calcified pulmonary nodules appeared stable. There was no evidence of disease progression in the abdomen/pelvis. He was transferred to [facility] for admission. His further evaluation there included needle biopsy of the supraclavicular mass, which should confirm recurrent seminoma. His tumor markers included elevated LDH at 1094 units/L, AFP 2.5 ng/mL, and mildly elevated beta-hCG at 5.3 mIU/mL. TTE showed low normal systolic function and external pressure and of the left atrium from the mediastinal mass. Brain MRI was normal. Pulmonary function studies showed FEV1 at 57% of predicted. The DLCO was low at 57%, but was at 78% when adjusted for alveolar volume. He was discharged with instructions to follow-up here for chemotherapy. He began his 1st of 4 planned cycles of chemotherapy with cisplatin/etoposide on 12/09/2019. He experienced significant nausea with the chemotherapy, despite antiemetic therapy with dexamethasone, ondansetron, and Lorazepam. He also tried Zyprexa, but tolerated it poorly. At day 15 he was neutropenic, ANC 500. He was treated with Neupogen and he was given empiric antibiotic coverage with Levaquin. He proceeded with cycle 2 on 12/30/2019. He was given Neulasta prophylactically with that cycle, and I also had him start Marinol/Compazine for nausea/anorexia. He continued to have significant nausea and fatigue with the chemotherapy, but his blood counts remained adequate. He was able to continue with cycle 3 on 01/20/2020 and with cycle 4 on 02/10/2020. Restaging CT scans on 03/31/2020 showed marked improvement in the mediastinal mass, reported to be less than 1/2 the size compared to the pretreatment study. On my own review it appears to be significantly more than that. He was then followed on observation/surveillance. He has had no other ongoing medical illnesses. His other surgeries include thyroidectomy in 2017 and arthroscopic right knee surgery in January 2019. He has a history of smoking 1 pack of cigarettes daily for more than 20 years. He has been trying to quit. INTERIM HISTORY: CT scans of the chest, abdomen, and pelvis on 08/24/2020 showed continued decrease in the size of the posterior mediastinal infiltrating soft tissue, but with this mild residual soft tissue thickening surrounding the esophagus beginning near the mago and extending inferiorly. Increased soft tissue was noted in the posterior mediastinal fat and the retrocrural space and there was mild soft tissue thickening surrounding approximately 50% of the descending aorta. There is no new or progressive adenopathy. Multiple right middle and bilateral lower lobe pulmonary nodules appeared stable. There is no metastatic disease or adenopathy noted in the abdomen/pelvis. He continued on active surveillance. He is seen for a follow-up visit. He has been feeling pretty good generally, though he says that he intermittently feels sick for a few days. In between those episodes he feels fine. He still complains that his energy is very low, but he is able to do light work. His appetite is better. His weight is stable. He has not had fever. He has some mild night sweating. He has cough, and he is still smoking 1/2 pack of cigarettes daily. He does not complain of shortness of breath or chest pain. He occasionally has cramps in his stomach or lower abdomen. He has no other GI or complaints. He has some chronic pain in his right knee. He has numbness/tingling in his feet. Medications: Cymbalta 1 Capsule (of 60 mg) Capsule Delayed Release Particles Oral daily, Levothyroxine Sodium 1 Tablet (of 150 mcg) Oral daily Allergies: Penicillins and Sulfa Antibiotics. Vital Signs: Performed on Nov 10, 2020 14:09 Height - 71.00 in Weight - 209.4 lbs (HIGH) BSA - 2.15 sq.m BMI - 29.21 Temperature - 99.4 F (HIGH) Pulse - 95 /min Respiration - 16 /min BP - 124/76 mm(hg) O2 Sat - 98 % Pain - 0 Physical Examination: Constitutional - He looks good generally, Eyes - Sclerae nonicteric. Conjunctivae clear, ENMT - No lesions noted in the oral cavity, Hematologic/Lymphatic - No cervical, clavicular, or axillary adenopathy, Respiratory - Lungs sound clear, Cardiovascular - Heart rhythm is regular. There is no murmur, gallop, or rub noted, Abdomen - Soft. Liver and spleen are not enlarged. There is no abdominal mass or ascites noted. There is no inguinal adenopathy, Extremities - No edema. There is a subcutaneous nodule along the radial aspect of the right arm just above the elbow. It measures about 1.5 cm. The consistency is suggestive of a cyst, Neurologic - No focal neurologic deficits noted. Lab/Imaging: Test performed on Nov 10, 2020 12:47 HCG, Serum (Quant) 1 mIU/mL LDH (Total) 123 U/L AFP 3.1 ng/mL Test performed on Aug 31, 2020 13:56 Sodium 138 mmol/L TSH 1.04 uIU/mL Potassium 3.8 mmol/L Chloride 102 mmol/L CO2 27 mmol/L Anion Gap 12.8 BUN 8 mg/dL Creatinine 0.7 mg/dL Cr Clearance (Est) 189.07 mL/min eGFR 125.5 mL/min Glucose 117 mg/dL Osmolality - Calculated 285 mOsm/kg Calcium 9.0 mg/dL Protein, Total 6.5 g/dL Albumin 4.4 g/dL Globulin 2.1 g/dL Bilirubin, Total 0.2 mg/dL ALT (SGPT) 12 U/L AST (SGOT) 10 U/L Alkaline Phosphatase 93 IU/L WBC 7.1 10 3/uL RBC 4.05 10 6/uL HGB 13.2 g/dL HCT 40.4 % MCV 99.8 fL MCH 32.6 pg MCHC 32.7 g/dL RDW 13.9 % Platelet Count 286 10 3/cmm MPV 8.7 fL Neutrophils 5.23 10 3/uL Lymphocytes 1.2 10 3/uL Monocytes 0.4 10 3/uL Eosinophils 0.2 10 3/uL Basophils 0.1 10 3/uL Neutrophil % 73.3 % Lymphocyte % 16.9 % Monocyte % 5.6 % Eosinophil % 2.1 % Basophils % 1.5 % NRBC % 0 % Historic Problem List: 1. Classic seminoma involving the left testicle. By clinical evaluation, his disease appeared to be stage IS (pT1, N0, M0, S1) at initial diagnosis in August 2017. He underwent left radical orchiectomy on 09/25/2017. His preoperative tumor markers showed mildly elevated LDH with normal alpha-fetoprotein and beta-hCG levels. 2. His restaging CT abdomen/pelvis on 06/20/2018 showed an enlarging left periaortic lymph node, at that point measuring 2.5 x 2.2 cm. The appearance was clearly consistent with metastatic disease). He opted to have treatment with radiation, completed on 09/13/2018 to a total dose of 3600 cGy. 3. On 11/07/2019 he presented with a left supraclavicular mass. PET/CT and needle biopsy were recommended, but not completed. On 11/25/2019 he was admitted to [facility] after presenting to the emergency room with shortness of breath and difficulty swallowing. He had CT evidence of left supraclavicular mass measuring 5.9 x 4.6 cm and mediastinal mass measuring 14.0 x 9.7 x 8.1 cm. Needle biopsy of the mass confirmed recurrent seminoma. Baseline LDH level was 1094 U/L. 4. He had a complete response to treatment with 4 cycles of cisplatin/etoposide chemotherapy, completed in January 2020. Problems Addressed with this Encounter and Plan: 1. Classic seminoma involving the left testicle, stage IS (pT1, N0, M0, S1) at initial diagnosis in August 2017. He underwent left radical orchiectomy on 09/25/2017. He underwent radiation for CT evidence of recurrence in a left periaortic lymph node, completed on 09/13/2018 to a total dose of 3600 cGy. In October 2019 he had further recurrence with a bulky metastatic involvement in the mediastinum and left supraclavicular area. He underwent treatment with 4 cycles of cisplatin/etoposide, completed in January 2020. He experienced multiple toxicities during the chemotherapy, but he did have a complete response to the treatment, and during follow-up he has been showing gradual recovery. He is now being followed on active surveillance. He continues to have somewhat marginal performance status, but thus far there has been no evidence for further recurrence of the seminoma. He remains on his active surveillance. He will be scheduled for a follow-up visit with surveillance CT scans in 2 months. 2. He has a subcutaneous nodule in the right arm just above the elbow. The clinical appearance is suggestive of a cyst. It will need to be followed. Signed By: Allen Russell M.D. <<Signature on File>>
== END 2020-11-10 12:26 | disposition home or self-care (01) ==
LOC: ONCMED 12:27
PROVIDERS: PCP Nurse Practitioner; Visit Provider Internal Medicine Medical Oncology
DX: C77.0 Secondary and unspecified malignant neoplasm of lymph nodes of head, face and neck (principal); Z85.47 Personal history of malignant neoplasm of testis; Z90.79 Acquired absence of other genital organ(s); Z92.3 Personal history of irradiation; Z92.21 Personal history of antineoplastic chemotherapy
CPT/HCPCS: 36591; 82105; 83615; 84702; G0463

== ENCOUNTER → 2020-12-18 15:04 | Outpatient (BNVA) | payer MEDICAID, SELFPAY | PROVIDERS: PCP Nurse Practitioner; Visit Provider Surgery | DX: Z20.822 Contact with and (suspected) exposure to COVID-19 (principal) | CPT/HCPCS: 87635 ==

== ENCOUNTER 2020-12-21 05:39 | Day surgery (SDC) | payer MEDICAID, SELFPAY ==
[2020-12-18 13:26] VITALS: BMI 27.1
[2020-12-21 05:59] VITALS: BP 124/75; PULSE 73; RESP 18; TEMP 36.3; O2SAT 97
[2020-12-21] MEDS: sodium chloride 0.9% 1,000 ML 30 ML IV (06:14)
--- NOTE | 2020-12-21 06:28 | P.HP_ITS ---
Same Day Surgery H&P Indication for Procedure/HPI DATE OF PROCEDURE: December 21, 2020 CHIEF COMPLAINT/INDICATIONFOR SURGICAL PROCEDURE: I need my port out as I am done with the treatment PREOP DIAGNOSIS: Testicular cancer PLANNED PROCEDRUE: Operation Date: 12/21/20 07:00 Proposed Procedures p Portacath Removal 46582 c62.90(Not Applicable) - Jono Jacob MD Patient comes today to discuss explantation of right upper chest Port-A-Cath as he has been done with the chemotherapy for testicular cancer. The patient desires to be taken out. Patient was supposed to have the procedure before but he was not feeling well and that got postponed. Today escorted by his spouse, and he denies any constitutional symptoms. Interim history 12/21/2020 Patient comes today for right upper chest port explantation. ROS All systems have been reviewed negative except as per the above or per problem list. Medications/Allergies* Home Medications Medication Instructions Recorded Confirmed Type duloxetine 30 mg capsule,delayed 60 mg PO DAILY cap 06/24/20 12/18/20 History release levothyroxine 150 mcg tablet 100 mcg PO DAILY tab 06/24/20 12/18/20 History Allergies/Adverse Reactions Allergy/AdvReac Type Severity Reaction Status Date / Time Penicillins Allergy ALGY-Anaphy Verified 12/21/20 06:29 laxis Sulfa (Sulfonamide Allergy ALGY-Anaphy Verified 12/21/20 06:29 Antibiotics) laxis Current Medications: Generic Name Dose Route Start Last Admin Trade Name Freq PRN Reason Stop Dose Admin Sodium Chloride 1,000 mls @ 30 mls/hr 12/21/20 06:00 12/21/20 06:14 Sodium Chloride 0.9% IV 12/22/20 05:59 30 mls/hr .Q24H TORITO Administration Pertinent History/Comorbid Conditions* Medical History (Updated 06/24/20 @ 14:25 by Jono Jacob MD) Testicular cancer Patient on patient undergone Port-A-Cath placement to start his chemotherapy as soon as possible Surgical History (Updated 12/05/19 @ 16:37 by Jono Jacob MD) History of knee surgery History of surgical removal of testicle History of thymectomy Family History (Updated 06/24/20 @ 14:04 by Tana Knapp LPN) Cancer Father colon cancer Hypertension Denies family history of Anesthesia complication Bleeding disorder Social History Smoking and tobacco status: current every day smoker Alcohol intake: never Household members: spouse Marital status: Current occupational status: disabled History of recent travel: No Pertinent Exam Findings alert, oriented x 3, clear to auscultation bilaterally, regular rate & rhythm, operative site marked and procedure specific exam findings (Abdominal examination nontender nondistended soft) Recommendations Surgery/Procedure today (Plan for right upper chest port explantation) Other Plans: Plan of care; After thorough history physical examination and reviewing the chart and reviweing the images with my personal intrepretation.I counseled the patient for right upper chest Port-A-Cath explantation, indications, risks including pneumothorax that may require Chest tube(s) placement and potential injury of major vascular structures that may require Thoractomy, benefits,indications and alternatives were all discussed with the patient, patient understands and is interested to proceed. Rationale was carefully and clearly discussed with the patient.Appropriate informed consent have been reviewed and signed. Coding Level of Care Code Acute Vacuum Pan Operator for Kiersten Gonzalez
[2020-12-21] MEDS: clindamycin 900 MG/50 ML PREMIX 100 MG IV (06:52)
--- NOTE | 2020-12-21 06:52 | ANES.PREANE2 ---
Pre-Anesthetic Assessment Pre-Anesthetic Assessment: Height/Weight: Height 1.83 m Weight 90.718 kg Temp Pulse Resp BP Pulse Ox 97.4 F L 73 18 124/75 97 12/21/20 05:59 12/21/20 05:59 12/21/20 05:59 12/21/20 05:59 12/21/20 05:59 Preop Diagnosis: Testicular cancer Proposed Procedure: Operation Date: 12/21/20 07:00 Proposed Procedures p Portacath Removal 32287 c62.90(Not Applicable) - Jono Jacob MD Was Beta Kristen taken within 24 hours: N/A Last intake: Intake Last Liquid Date 12/21/20 Last Liquid Time 04:00 Last Solid Date 12/20/20 Last Solid Time 18:00 Social: Social History: Tobacco and No alcohol Exam: Pre-Anes Outpt Exam: alert, oriented x 3 and regular rate & rhythm Airway: Submandibular: WNL Cervical ROM: WNL MP: 2 Dentition: Chipped Additional comments: Poor dentition, multiple chipped, multiple carries Pulmonary: Pulmonary: COPD Metabolic: Metabolic: Morbid obesity and Thyroid Anesthetic Plan: ASA status: 3 Anesthesia: MAC Risk of > 500 ml blood loss (7ml/kg in children): No Meds/Allergies Current Medications: Current Medications Generic Name Dose Route Start Last Admin Trade Name Freq PRN Reason Stop Dose Admin Sodium Chloride 1,000 mls @ 30 ml s/hr 12/21/20 06:00 12/21/20 06:14 Sodium Chloride 0.9% IV 12/22/20 05:59 30 mls/hr .Q24H TORITO Administration PFSH Anesthesia PFSH: Medical History Testicular cancer Patient on patient undergone Port-A-Cath placement to start his chemotherapy as soon as possible Surgical History History of knee surgery History of surgical removal of testicle History of thymectomy Family History Father Cancer colon cancer Other Hypertension Denies family history of Anesthesia complication Bleeding disorder Social History Smoking and tobacco status: current every day smoker Alcohol intake: never Household members: spouse Marital status: Current occupational status: disabled History of recent travel: No Data Anesthesia Cardiac Studies: No Data to Display
[2020-12-21] MEDS: lidocaine 2% INJ 20 mL INJECTION (07:15)
--- NOTE | 2020-12-21 07:21 | PM.OP ---
Operative Report Date of procedure: December 21, 2020 Pre-op Diagnosis: Testicular cancer/undesired Port-A-Cath Post-op diagnosis: same Procedure Done: Explantation of right upper chest Port-A-Cath Specimens removed/disposition: Right upper chest Port-A-Cath for gross pathology Surgeon: Jono Jacob Granite Fabricator: echo vascular technologist Tommy Circulating nurse Jackelyn Anesthesia: MAC (signal integrity engineer Brittany) Estimated blood loss (mL): 5 Condition: stable Disposition: same day Brief History: 40-year-old gentleman with history of testicular cancer, undergone chemotherapy and there would be no more treatment and thus the patient elected to have the port removed. Full H&P per chart as well as an informed consent Procedure: planned procedure and destination after the procedure, all were in agreement. SCDs confirmed to be functioning, preoperative antibiotics administered per protocol, and beta charles protocol was confirmed, appropriate positioning of the patient was done by me. Prep and drape of the upper chest was done under the usual sterile technique,injection of lidocaine 2% at the site of the planned incision started by an transverse incision including the previous scar of the Port-A-Cath placement, repeated at the Right upper chest wall, no evidence of pus, the port was then explanted after taking down the Prolene sutures attaching the port to the, at this point the catheter was removed without difficulty at the same time direct pressure was applied at the site of the right subclavian stick to prevent bleeding. The entire port and the catheter was sent for gross pathology Thorough irrigation of the Port-A-Cath cavity was done followed by hemostasis, pressure was sustained for at least 5 minutes to prevent bleeding from the stick site Deep subdermal 3-0 Vicryl was used for closure of the port pocket followed by 4-0 Monocryl followed by surgical glue and pressure dressing Count was completed for instruments,needles and sponges, patient was then taken to the recovery area in stable condition I was present for the whole entire procedure
[2020-12-21 07:35] VITALS: BP 103/71; PULSE 73; RESP 18; TEMP 36.8; O2SAT 95
[2020-12-21 07:59] VITALS: BP 124/76; PULSE 76; RESP 18; TEMP 36.8; O2SAT 98
--- NOTE | 2020-12-21 09:26 | ANE.PACU2 ---
Inpatient post-anesthesia follow up: Airway intact: Yes Vital signs: Temperature 98.2 F Pulse Rate 76 Respiratory Rate 18 Blood Pressure 124/76 Pulse Oximetry 98 Oxygen Delivery Me thod Room Air Oxygen Flow Rate Fraction of Inspir ed Oxygen Hydration adequate: Yes Nausea and vomiting: No Pain level: 1 Mental status: Baseline
== END 2020-12-21 08:06 | disposition home or self-care (01) ==
PROVIDERS: PCP Nurse Practitioner; Visit Provider Surgery
PROC: (CPT 36589; principal; 2020-12-21 07:00)
DX: Z45.2 Encounter for adjustment and management of vascular access device (principal); C62.90 Malignant neoplasm of unspecified testis, unspecified whether descended or undescended; J44.9 Chronic obstructive pulmonary disease, unspecified; E66.01 Morbid (severe) obesity due to excess calories; Z68.27 Body mass index [BMI] 27.0-27.9, adult; F17.210 Nicotine dependence, cigarettes, uncomplicated
CPT/HCPCS: 36589; 88300; J2250; J2704; J3010; J3490; J7030

== ENCOUNTER 2021-01-18 10:10 | Outpatient (CLI) | payer MEDICAID, SELFPAY ==
--- NOTE | 2021-01-18 10:17 | CT_ITS ---
WS: [id number] CT CHEST, ABDOMEN AND PELVIS WITH CONTRAST. HISTORY: TESTICULAR CANCER TECHNIQUE: Contiguous 5 mm axial imaging performed through the chest, abdomen and pelvis with IV cont rast, oral contrast has been provided. Coronal and sagittal reformats chest. Coronal and sagittal ref ormats through the abdomen and pelvis. All CT scans at [facility] use at least one of the se dose optimization techniques: automated exposure control; mA and/or kV adjustment per patient size (includes targeted exams where dose is matched to clinical indication); or iterative reconstruction. CONTRAST: Omnipaque 300; 95 mL IV. DLP: 1671.96 mGy.cm COMPARISON: 08/24/2020 and 03/31/[address]: No significant change in the posterior mediastinal soft tissue mass which begins near the l evel of the mago and extends inferiorly by approximately 5 cm. There is partial encasement of the e sophagus and the descending aorta with extension into the aortopulmonary window. Soft tissue mass ext ends to abut the anterior adjacent vertebral bodies. No obvious improvement since 08/24/2020 with sig nificant improvement since 03/31/2020. No additional mediastinal lymph node or mass. Bilateral lower lo be and RIGHT middle lobe nodules, which are calcified and some are noncalcified are not significantly changed. The largest nodule is ovoid in the RIGHT middle lobe measuring 7.7 mm. No new or enlarging nodules. Heart size is normal. No axillary lymph nodes. Abdomen CT: No liver mass or nodule. No bile duct dilatation. Gallbladder, spleen, pancreas, adrenal glands or kidneys are unremarkable. Normal aorta. No mesenteric or retroperitoneal lymph nodes. No as cites. Pelvic CT: No pelvic or inguinal lymph nodes. Urinary bladder is well distended. No free fluid. No ly mph nodes along the iliac chains. No osteoblastic or osteolytic bone disease. CT/CT chest abd pel w con* IMPRESSION: 1. Stable appearance of the partially encasing soft tissue in the posterior me diastinum since 08/24/2020. Significant improvement since 03/31/2020. 2. No change in the bilateral lower lobe and RIGHT middle lobe pulmonary nodul es. Some of these are calcified and some are noncalcified. The largest noncalci fied nodule in the RIGHT middle lobe measures 7.7 mm. 3. No retroperitoneal or mesenteric lymph nodes or ascites within the abdomen or pelvis.
[2021-01-18] MEDS: iohexol 300 mg/mL 50 mL Btl PO (11:52)
[2021-01-18] MEDS: iohexol 300 mg/mL 100 mL Btl IV (11:53)
[2021-01-18 12:35] LABS: Basophils # 0.1 10^3/uL (0.0-0.1); Basophils % 1.9 %; Eosinophils # 0.1 10^3/uL (0.0-0.8); Eosinophils % 1.9 %; Hematocrit 42.7 % (42.0-52.0); Hemoglobin 14.2 g/dL (11.7-16.6); Lymphocytes # 1.3 10^3/uL (0.8-4.8); Lymphocytes % 27.8 %; Mean Corpuscular HGB Conc 33.3 g/dL (30.0-36.0); Mean Corpuscular Hemoglobin 31.8 pg (28.0-34.0); Mean Corpuscular Volume 95.7 fL (80-94); Mean Platelet Volume 8.9 fL (7.4-10.4); Monocytes # 0.4 10^3/uL (0.2-0.9); Monocytes % 8.2 %; Neutrophils # 2.84 10^3/uL (1.8-7.7); Nucleated Red Blood Cells % 0 %; Platelet Count 291 10^3/cmm (130-400); Red Blood Count 4.46 10^6/uL (4.1-5.3); Red Cell Distribution Width 12.8 % (12.1-15.1); White Blood Count 4.7 10^3/uL (4.0-10.0)
[2021-01-18 13:08] LABS: HCG Tumor Marker 1 mIU/mL (0-3)
[2021-01-18 13:28] LABS: Alanine Aminotransferase 7 U/L (0-41); Albumin Level 4.4 g/dL (3.5-5.2); Alkaline Phosphatase 89 IU/L (40-130); Aspartate Amino Transferase 13 U/L (0-40); Blood Urea Nitrogen 7 mg/dL (6-20); Calcium 9.3 mg/dL (8.5-10.5); Carbon Dioxide 26 mmol/L (22-29); Chloride 101 mmol/L (98-107); Globulin 2.8 g/dL (1.3-4.6); Glucose 92 mg/dL (65-115); Osmolality Calculated 286 mOsm/kg (285-295); Sodium 139 mmol/L (136-145); Total Bilirubin 0.3 mg/dL (0.15-1.2); Total Protein 7.2 g/dL (6.6-8.7)
[2021-01-18 13:42] LABS: Anion Gap 16.4 (5-19); Lactate Dehydrogenase 173 U/L (135-225); Potassium 4.4 mmol/L (3.5-5.1)
[2021-01-18 16:55] LABS: Tumor Marker Alpha Fetoprotein 4.3 ng/mL (0-8.3)
== END 2021-01-18 10:11 | disposition home or self-care (01) ==
LOC: CT 10:12 → ONCMED 12:04
PROVIDERS: Visit Provider Internal Medicine Medical Oncology
DX: C62.12 Malignant neoplasm of descended left testis (principal); R91.8 Other nonspecific abnormal finding of lung field
CPT/HCPCS: 36415; 71260; 74177; 80053; 82105; 83615; 84702; 85025

== ENCOUNTER 2021-01-21 06:08 | Outpatient (CLI) | payer MEDICAID, SELFPAY ==
--- NOTE | 2021-01-24 14:26 | ONC FU_ITS ---
Dr. Russell Patient Follow-Up Note Patient: Macario Porter Unit #: [id number]: 1980 Dicatated By: Allen Russell M.D.Date of Visit:Jan 21, 2021 Onc Med Follow-up/Prog Note Chief Complaint: Testicular cancer. History of Present Illness: This is a 40 year-old man with classic seminoma involving the left testicle, by clinical evaluation his disease was stage IS (pT1, N0, M0, S1) at initial diagnosis, but with subsequent progression to stage IIIB (pT1, N1, M1a). On 09/20/2017 he presented to the emergency room with pain in the left testicle, which had been getting worse over a couple of months. He also could feel a hard spot in the testicle. Testicular ultrasound showed enlarged left testicle measuring 5.8 x 4.6 x 5.8 cm with diffusely heterogeneous appearance, worrisome for neoplasm. His chest x-ray was unremarkable. He was referred to Dr. Yeager. On 09/25/2017 he underwent left radical orchiectomy. He tolerated the procedure well. His preoperative tumor markers included LDH mildly elevated at 335/241 U/L, AFP 4.3 ng/ML, and beta hCG < 1 mIU/mL. His staging CT abdomen/pelvis on 09/28/2017 showed subcentimeter retroperitoneal lymph nodes. The largest was in the para-aortic area and measured 9 mm. Also noted were multiple subcentimeter nodules at the right lung base, metastasis not excluded. There was a 2 cm lytic area without associated bone destruction in the left ilium. This was thought to most likely represent a benign lesion. Pathology showed an enlarged testis measuring 7.1 x 4.7 cm. The parenchyma was almost completely effaced by tumor measuring 6.9 x 4.5 cm. The tunica was noted to be intact. Histology showed germ cell neoplasm felt to be most consistent with classic seminoma with a component of IGCN. The immunoperoxidase panel showed that the tumor was positive for CD-117, PLAP, and OCT 3/4. It was negative for alpha-fetoprotein, inhibin, CK-cocktail, SCOTT, CD-34, and CEA. The beta hCG showed scattered rare positive cells. I had seen him initially on 10/06/2017. We discussed the possibility of immediate, short course adjuvant chemotherapy versus active surveillance. He opted for surveillance. He completed his staging with PET/CT on 11/27/2017. It showed a single left external iliac lymph node felt to most likely represent postoperative inflammatory changes. There was no other lymphadenopathy noted. Bilateral subcentimeter pulmonary nodules showed no focal increase in FDG activity and were felt to be intermediate for metastatic involvement. A focus of increased metabolic activity in the left thyroid lobe anteriorly appeared to be associated with a nodular density, and it was felt to be suspicious for neoplasia. Given those findings, he continued active surveillance was recommended for the seminoma. He was seen by Dr. Lackey in regard to the thyroid nodules. FNA biopsies of a 2.0 cm right thyroid nodule and a 1.4 cm left thyroid nodule both showed indeterminate cytopathology. They were ultimately confirmed to be benign. His surveillance CT scans of chest, abdomen, and pelvis on 05/21/2018 showed stable bilateral lung nodule. However, the abdomen/pelvis showed interval development of nonenlarged periaortic lymph node measuring 1.7 cm. The appearance was suspicious for metastatic involvement. He was seen for a follow-up visit on 06/12/2018. He was not overtly symptomatic. A follow-up CT of the abdomen/pelvis on 06/20/2018 showed progressive enlargement of the left periaortic lymph node, at that point measuring 2.5 x 2.2 cm. As it was clearly enlarging and indicative of metastatic disease, he was advised to undergo chemotherapy with 4 cycles of etoposide/cisplatin. However, as he wished to avoid chemotherapy if at all possible, he was given the option to have treatment with radiation as an alternative. He then completed radiation to periaortic lymph nodes on 09/13/2018 to a total dose of 3600 cGy. He continued follow-up with Dr. Olvera after the radiation. His surveillance CT abdomen/pelvis on 06/21/2019 showed residual left periaortic lymph node measuring 8.5 mm compared to 10.5 mm on the prior study from November 2018. Lung nodules in the right middle lobe and at the right lung base also appeared stable. There were no other interval changes reported. Chest x-ray on 10/16/2019 showed no concerning abnormalities. On 11/07/2019 he had presented with an obvious mass in the left supraclavicular area. At that point Dr. Olvera had recommended further evaluation with PET/CT and with needle biopsy of the supraclavicular mass. Neither of these were done. On 11/25/2019 he presented to the emergency room with multiple complaints, including chest pain, shortness of breath, and difficulty swallowing. His neck CT at that time showed a large heterogeneous mass in the posterior mediastinum encasing the descending thoracic aorta and with displacement of the pulmonary arteries, trachea, and esophagus. There was a necrotic mass in the left supraclavicular region measuring 5.9 x 4.6 cm consistent with adenopathy. On the chest CT the mediastinal mass was noted to measure 14.0 x 9.7 x 8.1 cm. Numerous calcified and partially calcified pulmonary nodules appeared stable. There was no evidence of disease progression in the abdomen/pelvis. He was transferred to [facility] for admission. His further evaluation there included needle biopsy of the supraclavicular mass, which should confirm recurrent seminoma. His tumor markers included elevated LDH at 1094 units/L, AFP 2.5 ng/mL, and mildly elevated beta-hCG at 5.3 mIU/mL. TTE showed low normal systolic function and external pressure and of the left atrium from the mediastinal mass. Brain MRI was normal. Pulmonary function studies showed FEV1 at 57% of predicted. The DLCO was low at 57%, but was at 78% when adjusted for alveolar volume. He was discharged with instructions to follow-up here for chemotherapy. He began his 1st of 4 planned cycles of chemotherapy with cisplatin/etoposide on 12/09/2019. He experienced significant nausea with the chemotherapy, despite antiemetic therapy with dexamethasone, ondansetron, and Lorazepam. He also tried Zyprexa, but tolerated it poorly. At day 15 he was neutropenic, ANC 500. He was treated with Neupogen and he was given empiric antibiotic coverage with Levaquin. He proceeded with cycle 2 on 12/30/2019. He was given Neulasta prophylactically with that cycle, and I also had him start Marinol/Compazine for nausea/anorexia. He continued to have significant nausea and fatigue with the chemotherapy, but his blood counts remained adequate. He was able to continue with cycle 3 on 01/20/2020 and with cycle 4 on 02/10/2020. Restaging CT scans on 03/31/2020 showed marked improvement in the mediastinal mass, reported to be less than 1/2 the size compared to the pretreatment study. On my own review it appeared to be significantly more than that. He was then followed on observation/surveillance. He has had no other ongoing medical illnesses. His other surgeries include thyroidectomy in 2017 and arthroscopic right knee surgery in January 2019. He has a history of smoking 1 pack of cigarettes daily for more than 20 years. He has been trying to quit. INTERIM HISTORY: CT scans of the chest, abdomen, and pelvis on 08/24/2020 showed continued decrease in the size of the posterior mediastinal infiltrating soft tissue, but with mild residual soft tissue thickening surrounding the esophagus beginning near the mago and extending inferiorly. Increased soft tissue was noted in the posterior mediastinal fat and the retrocrural space and there was mild soft tissue thickening surrounding approximately 50% of the descending aorta. There was no new or progressive adenopathy. Multiple right middle and bilateral lower lobe pulmonary nodules appeared stable. There was no metastatic disease or adenopathy noted in the abdomen/pelvis. He continued on active surveillance. His repeat CT scans of the chest, abdomen, and pelvis on 01/18/2021 showed stable appearance of the partially encasing soft tissue in the posterior mediastinum compared to the July 2020 study. Bilateral lower lobe and right middle lobe pulmonary nodules, some of which were calcified and some noncalcified, also appeared stable. The largest noncalcified nodule in the right middle lobe measured 7.7 mm. There was no adenopathy noted within the abdomen or pelvis. He is seen for a follow-up visit. He continues to have some fluctuation in his energy level, but overall he has been feeling pretty good. His ECOG score is 1. His appetite comes and goes. He has had gradual weight gain. He does not have fever or night sweats. He recently has had some sinus drainage and cough, and he also has some shortness of breath. He does not complain of chest pain. He has acid reflux symptoms. He has no other GI or complaints. He has no significant joint or bone pain. He has some residual numbness/tingling in his toes. He does not complain of headache or dizziness. He has no other focal neurologic symptoms. He is requesting a prescription for Cialis for erectile dysfunction. Medications: Cymbalta 1 Capsule (of 60 mg) Capsule Delayed Release Particles Oral daily, Levothyroxine Sodium 1 Tablet (of 150 mcg) Oral daily Allergies: Penicillins and Sulfa Antibiotics. Vital Signs: Performed on Jan 21, 2021 12:37 Height - 71.00 in Weight - 212.6 lbs (HIGH) BSA - 2.16 sq.m BMI - 29.65 Temperature - 97.8 F (LOW) Pulse - 86 /min Respiration - 17 /min BP - 119/79 mm(hg) O2 Sat - 96 % Pain - 0 Physical Examination: Constitutional - He looks good generally, Eyes - Sclerae nonicteric. Conjunctivae clear, ENMT - No lesions noted in the oral cavity, Hematologic/Lymphatic - No cervical, clavicular, or axillary adenopathy, Respiratory - Lungs sound clear, Cardiovascular - Heart rhythm is regular. There is no murmur, gallop, or rub noted, Abdomen - Soft. Liver and spleen are not enlarged. There is no abdominal mass or ascites noted. There is no inguinal adenopathy, Extremities - No edema, Neurologic - No focal neurologic deficits noted. Lab/Imaging: CBC shows hemoglobin 14.2 g, white blood cell count 4700, and platelet count 291,000. Comprehensive metabolic profile is unremarkable. His beta-hCG is 1 mIU/mL, AFP 3.1 ng/mL, and LDH 173 U/L. Problem List: 1. Classic seminoma involving the left testicle. 2. Hypothyroidism. 3. GERD. 4. Erectile dysfunction. Problems Addressed with this Encounter and Plan: 1. Patient with classic seminoma involving the left testicle, stage IS (pT1, N0, M0, S1) at initial diagnosis in August 2017. He underwent left radical orchiectomy on 09/25/2017. He underwent radiation for CT evidence of recurrence in a left periaortic lymph node, completed on 09/13/2018 to a total dose of 3600 cGy. In October 2019 he had further recurrence with a bulky metastatic involvement in the mediastinum and left supraclavicular area. He underwent treatment with 4 cycles of cisplatin/etoposide, completed in January 2020. He experienced multiple toxicities during the chemotherapy, but he did have a complete response to the treatment. He is being followed on active surveillance. He has had some fluctuation in his energy and activity tolerance, but overall he has been doing well clinically with no evidence for further recurrence of the seminoma. He remains on his active surveillance. He will be scheduled for a follow-up visit in [address] scans will be repeated at 6-month intervals during his year 2 surveillance. 2. He is having GERD symptoms. He will be given a prescription for pantoprazole 40 mg daily. 3. Per request, he is given a prescription for Cialis for erectile dysfunction. Signed By: Allen Russell M.D. <<Signature on File>>
== END 2021-01-21 06:09 | disposition home or self-care (01) ==
LOC: ONCMED 06:10
PROVIDERS: Visit Provider Internal Medicine Medical Oncology
DX: Z08 Encounter for follow-up examination after completed treatment for malignant neoplasm (principal); Z85.47 Personal history of malignant neoplasm of testis; K21.9 Gastro-esophageal reflux disease without esophagitis; N52.9 Male erectile dysfunction, unspecified; Z90.79 Acquired absence of other genital organ(s); Z79.899 Other long term (current) drug therapy; Z92.21 Personal history of antineoplastic chemotherapy
CPT/HCPCS: 99214

== ENCOUNTER 2021-04-23 09:59 | Outpatient (CLI) | payer MEDICAID, SELFPAY ==
[2021-04-23 11:03] LABS: HCG Tumor Marker 1 mIU/mL (0-3)
[2021-04-23 11:14] LABS: Lactate Dehydrogenase 137 U/L (135-225)
== END 2021-04-23 10:00 | disposition home or self-care (01) ==
LOC: ONCMED 10:01
PROVIDERS: Visit Provider Internal Medicine Medical Oncology
DX: C62.12 Malignant neoplasm of descended left testis (principal); C77.0 Secondary and unspecified malignant neoplasm of lymph nodes of head, face and neck; Z90.79 Acquired absence of other genital organ(s)
CPT/HCPCS: 82105; 83615; 84702

== ENCOUNTER 2021-04-26 06:52 | Outpatient (CLI) | payer MEDICARE, MEDICAID, SELFPAY ==
--- NOTE | 2021-04-30 12:05 | ONC FU_ITS ---
Dr. Russell Patient Follow-Up Note Patient: Macario Porter Unit #: [id number]: [id number] Dicatated By: Allen Russell M.D.Date of Visit:Apr 26, 2021 Onc Med Follow-up/Prog Note Chief Complaint: Testicular cancer. History of Present Illness: This is a 41 year-old man with classic seminoma involving the left testicle, by clinical evaluation his disease was stage IS (pT1, N0, M0, S1) at initial diagnosis, but with subsequent progression to stage IIIB (pT1, N1, M1a). On 09/20/2017 he presented to the emergency room with pain in the left testicle, which had been getting worse over a couple of months. He also could feel a hard spot in the testicle. Testicular ultrasound showed enlarged left testicle measuring 5.8 x 4.6 x 5.8 cm with diffusely heterogeneous appearance, worrisome for neoplasm. His chest x-ray was unremarkable. He was referred to Dr. Yeager. On 09/25/2017 he underwent left radical orchiectomy. He tolerated the procedure well. His preoperative tumor markers included LDH mildly elevated at 335/241 U/L, AFP 4.3 ng/ML, and beta hCG < 1 mIU/mL. His staging CT abdomen/pelvis on 09/28/2017 showed subcentimeter retroperitoneal lymph nodes. The largest was in the para-aortic area and measured 9 mm. Also noted were multiple subcentimeter nodules at the right lung base, metastasis not excluded. There was a 2 cm lytic area without associated bone destruction in the left ilium. This was thought to most likely represent a benign lesion. Pathology showed an enlarged testis measuring 7.1 x 4.7 cm. The parenchyma was almost completely effaced by tumor measuring 6.9 x 4.5 cm. The tunica was noted to be intact. Histology showed germ cell neoplasm felt to be most consistent with classic seminoma with a component of IGCN. The immunoperoxidase panel showed that the tumor was positive for CD-117, PLAP, and OCT 3/4. It was negative for alpha-fetoprotein, inhibin, CK-cocktail, SCOTT, CD-34, and CEA. The beta hCG showed scattered rare positive cells. I had seen him initially on 10/06/2017. We discussed the possibility of immediate, short course adjuvant chemotherapy versus active surveillance. He opted for surveillance. He completed his staging with PET/CT on 11/27/2017. It showed a single left external iliac lymph node felt to most likely represent postoperative inflammatory changes. There was no other lymphadenopathy noted. Bilateral subcentimeter pulmonary nodules showed no focal increase in FDG activity and were felt to be intermediate for metastatic involvement. A focus of increased metabolic activity in the left thyroid lobe anteriorly appeared to be associated with a nodular density, and it was felt to be suspicious for neoplasia. Given those findings, he continued active surveillance was recommended for the seminoma. He was seen by Dr. Lackey in regard to the thyroid nodules. FNA biopsies of a 2.0 cm right thyroid nodule and a 1.4 cm left thyroid nodule both showed indeterminate cytopathology. They were ultimately confirmed to be benign. His surveillance CT scans of chest, abdomen, and pelvis on 05/21/2018 showed stable bilateral lung nodule. However, the abdomen/pelvis showed interval development of nonenlarged periaortic lymph node measuring 1.7 cm. The appearance was suspicious for metastatic involvement. He was seen for a follow-up visit on 06/12/2018. He was not overtly symptomatic. A follow-up CT of the abdomen/pelvis on 06/20/2018 showed progressive enlargement of the left periaortic lymph node, at that point measuring 2.5 x 2.2 cm. As it was clearly enlarging and indicative of metastatic disease, he was advised to undergo chemotherapy with 4 cycles of etoposide/cisplatin. However, as he wished to avoid chemotherapy if at all possible, he was given the option to have treatment with radiation as an alternative. He then completed radiation to periaortic lymph nodes on 09/13/2018 to a total dose of 3600 cGy. He continued follow-up with Dr. Olvera after the radiation. His surveillance CT abdomen/pelvis on 06/21/2019 showed residual left periaortic lymph node measuring 8.5 mm compared to 10.5 mm on the prior study from November 2018. Lung nodules in the right middle lobe and at the right lung base also appeared stable. There were no other interval changes reported. Chest x-ray on 10/16/2019 showed no concerning abnormalities. On 11/07/2019 he had presented with an obvious mass in the left supraclavicular area. At that point Dr. Olvera had recommended further evaluation with PET/CT and with needle biopsy of the supraclavicular mass. Neither of these were done. On 11/25/2019 he presented to the emergency room with multiple complaints, including chest pain, shortness of breath, and difficulty swallowing. His neck CT at that time showed a large heterogeneous mass in the posterior mediastinum encasing the descending thoracic aorta and with displacement of the pulmonary arteries, trachea, and esophagus. There was a necrotic mass in the left supraclavicular region measuring 5.9 x 4.6 cm consistent with adenopathy. On the chest CT the mediastinal mass was noted to measure 14.0 x 9.7 x 8.1 cm. Numerous calcified and partially calcified pulmonary nodules appeared stable. There was no evidence of disease progression in the abdomen/pelvis. He was transferred to [facility] for admission. His further evaluation there included needle biopsy of the supraclavicular mass, which should confirm recurrent seminoma. His tumor markers included elevated LDH at 1094 units/L, AFP 2.5 ng/mL, and mildly elevated beta-hCG at 5.3 mIU/mL. TTE showed low normal systolic function and external pressure and of the left atrium from the mediastinal mass. Brain MRI was normal. Pulmonary function studies showed FEV1 at 57% of predicted. The DLCO was low at 57%, but was at 78% when adjusted for alveolar volume. He was discharged with instructions to follow-up here for chemotherapy. He began his 1st of 4 planned cycles of chemotherapy with cisplatin/etoposide on 12/09/2019. He experienced significant nausea with the chemotherapy, despite antiemetic therapy with dexamethasone, ondansetron, and Lorazepam. He also tried Zyprexa, but tolerated it poorly. At day 15 he was neutropenic, ANC 500. He was treated with Neupogen and he was given empiric antibiotic coverage with Levaquin. He proceeded with cycle 2 on 12/30/2019. He was given Neulasta prophylactically with that cycle, and I also had him start Marinol/Compazine for nausea/anorexia. He continued to have significant nausea and fatigue with the chemotherapy, but his blood counts remained adequate. He was able to continue with cycle 3 on 01/20/2020 and with cycle 4 on 02/10/2020. Restaging CT scans on 03/31/2020 showed marked improvement in the mediastinal mass, reported to be less than 1/2 the size compared to the pretreatment study. On my own review it appeared to be significantly more than that. He was then followed on observation/surveillance. He has had no other ongoing medical illnesses. His other surgeries include thyroidectomy in 2017 and arthroscopic right knee surgery in January 2019. He has a history of smoking 1 pack of cigarettes daily for more than 20 years. He has been trying to quit. INTERIM HISTORY: CT scans of the chest, abdomen, and pelvis on 08/24/2020 showed continued decrease in the size of the posterior mediastinal infiltrating soft tissue, but with mild residual soft tissue thickening surrounding the esophagus beginning near the mago and extending inferiorly. Increased soft tissue was noted in the posterior mediastinal fat and the retrocrural space and there was mild soft tissue thickening surrounding approximately 50% of the descending aorta. There was no new or progressive adenopathy. Multiple right middle and bilateral lower lobe pulmonary nodules appeared stable. There was no metastatic disease or adenopathy noted in the abdomen/pelvis. His repeat CT scans of the chest, abdomen, and pelvis on 01/18/2021 showed stable appearance of the partially encasing soft tissue in the posterior mediastinum compared to the July 2020 study. Bilateral lower lobe and right middle lobe pulmonary nodules, some of which were calcified and some noncalcified, also appeared stable. The largest noncalcified nodule in the right middle lobe measured 7.7 mm. There was no adenopathy noted within the abdomen or pelvis. With those findings he continued his active surveillance. He is seen for a follow-up visit. He has been feeling good generally. He says his energy keeps getting better gradually. He has normal activity now. ECOG score is 0. He has good appetite and he has gained weight. He does not have fever or night sweats. He has had a little bit of sore throat. He does not have cough and he does not complain of shortness of breath or chest pain. He has no GI or complaints. He is not having much in the way of joint or bone pain now. He still has some neuropathy in his feet. Medications: Cymbalta 1 Capsule (of 60 mg) Capsule Delayed Release Particles Oral daily, Levothyroxine Sodium 1 Tablet (of 150 mcg) Oral daily Allergies: Penicillins and Sulfa Antibiotics. Vital Signs: Performed on Apr 26, 2021 15:38 Height - 71.00 in Weight - 219.4 lbs (HIGH) BSA - 2.19 sq.m BMI - 30.60 (HIGH) Temperature - 98.8 F Pulse - 72 /min Respiration - 18 /min BP - 119/76 mm(hg) O2 Sat - 97 % Pain - 0 Fatigue - 0 Physical Examination: Constitutional - He looks good generally, Eyes - Sclerae nonicteric. Conjunctivae clear, ENMT - No lesions noted in the oral cavity, Neck - There is no neck mass noted, Hematologic/Lymphatic - No cervical, clavicular, or axillary adenopathy, Respiratory - Lungs sound clear, Cardiovascular - Heart rhythm is regular. There is no murmur, gallop, or rub noted, Abdomen - Soft. Liver and spleen are not enlarged. There is no abdominal mass or ascites noted. There is no inguinal adenopathy, Extremities - No edema, Neurologic - No focal neurologic deficits noted. Lab/Imaging: His tumor markers are normal with beta-hCG 1 mIU/mL, AFP 3.0 ng/mL, and LDH 137 U/L. Problem List: 1. Classic seminoma involving the left testicle. 2. Hypothyroidism. 3. GERD. 4. Erectile dysfunction. Problems Addressed with this Encounter and Plan: Patient with classic seminoma involving the left testicle, stage IS (pT1, N0, M0, S1) at initial diagnosis in August 2017. He underwent left radical orchiectomy on 09/25/2017. He underwent radiation for CT evidence of recurrence in a left periaortic lymph node, completed on 09/13/2018 to a total dose of 3600 cGy. In October 2019 he had further recurrence with a bulky metastatic involvement in the mediastinum and left supraclavicular area. He underwent treatment with 4 cycles of cisplatin/etoposide, completed in January 2020. He experienced multiple toxicities during the chemotherapy, but he did have a complete response to the treatment. He is being followed on active surveillance. During follow-up he has continued to show gradual improvement in his performance status. Overall he has been doing well clinically with no evidence for further recurrence of the seminoma. He remains on his active surveillance. He will be scheduled for a follow-up visit in 3 months. He will have surveillance CT scans prior to that visit. Signed By: Allen Russell M.D. <<Signature on File>>
== END 2021-04-26 06:53 | disposition home or self-care (01) ==
PROVIDERS: Visit Provider Internal Medicine Medical Oncology
DX: Z08 Encounter for follow-up examination after completed treatment for malignant neoplasm (principal); Z85.47 Personal history of malignant neoplasm of testis; E03.9 Hypothyroidism, unspecified; K21.9 Gastro-esophageal reflux disease without esophagitis; N52.9 Male erectile dysfunction, unspecified; Z79.899 Other long term (current) drug therapy; Z92.21 Personal history of antineoplastic chemotherapy; Z92.3 Personal history of irradiation
CPT/HCPCS: G0463

== ENCOUNTER 2021-07-27 13:48 | Outpatient (CLI) | payer MEDICARE, MEDICAID, SELFPAY ==
--- NOTE | 2021-07-27 13:57 | CT_ITS ---
WS: [id number] CT CHEST, ABDOMEN, AND PELVIS TECHNIQUE: Contrast-enhanced CT of the chest, abdomen, and pelvis with coronal and sagittal reformatt ed images. CLINICAL INFORMATION: MALIGNANT NEOPLASM OF DESCENDED LEFT TESTIS COMPARISON: Multiple prior CT examinations dating back to November 26, 2019. Most recent examination M die[place] 2020 DLP: 2606.[address] scans at [facility] use at least one of these dose optimization techniques: automated e xposure control; mA and/or kV adjustment per patient size (includes targeted exams where dose is matc hed to clinical indication); or iterative reconstruction. CT CHEST: Previously described residual infiltrating posterior mediastinal soft tissue mass/thickening partiall y encasing the thoracic esophagus and descending thoracic aorta is stable over multiple prior examina tions. No evidence of progression.This is significantly improved since March 31, 2020 as previously de scribed. Stable bilateral lower lobe and right middle lobe pulmonary nodules some of which are calcified. Larg est noncalcified nodule in the right middle lobe measures 7 mm unchanged from previous. No new suspic ious pulmonary parenchymal opacities. No mediastinal or hilar lymphadenopathy. No axillary lymphadenopathy. CT ABDOMEN AND PELVIS: Normal liver. Normal portal vein and splenic vein. Normal GE junction. Adrenal glands are normal. Nor mal renal parenchymal enhancement. No hydronephrosis. Normal spleen. No adenopathy in the abdomen or pelvis. No inguinal lymphadenopathy. Fat-containing left inguinal hernia. A few sigmoid diverticuli. No free fluid in the pelvis. Hypertrophic changes mid thoracic spine. Normal lumbar spine. CT/CT chest abd pel w con* IMPRESSION: 1. Stable 7 mm ovoid nodule in the right middle lobe. 2. Additional tiny calcified and noncalcified pulmonary nodules are stable. 3. Small amount of stable residual infiltrating soft tissue in the posterior m ediastinum partially encasing the thoracic esophagus and descending thoracic ao rta is unchanged over multiple prior examinations. 4. No adenopathy in the chest abdomen or pelvis. 5. No inguinal lymphadenopathy. No free fluid in the pelvis. 6. No evidence of progressed disease.
[2021-07-27] MEDS: iohexol 300 mg/mL 100 mL Btl IV (14:23)
[2021-07-27 15:21] LABS: Basophils # 0.1 10^3/uL (0.0-0.1); Basophils % 1.3 %; Eosinophils # 0.1 10^3/uL (0.0-0.8); Eosinophils % 1.4 %; Hemoglobin 16.2 g/dL (11.7-16.6); Lymphocytes # 1.4 10^3/uL (0.8-4.8); Lymphocytes % 19.2 %; Mean Corpuscular HGB Conc 35.2 g/dL (30.0-36.0); Mean Corpuscular Hemoglobin 32.9 pg (28.0-34.0); Mean Corpuscular Volume 93.5 fl (80-94); Mean Platelet Volume 9.2 fL (7.4-10.4); Monocytes # 0.6 10^3/uL (0.2-0.9); Monocytes % 8.3 %; Neutrophils # 4.99 10^3/uL (1.8-7.7); Neutrophils % 69.4 %; Nucleated Red Blood Cells % 0 %; Platelet Count 311 10^3/cmm (130-400); Red Blood Count 4.92 10^6/uL (4.1-5.3); Red Cell Distribution Width 12.8 % (12.1-15.1); White Blood Count 7.2 10^3/uL (4.0-10.0)
[2021-07-27 15:58] LABS: Thyroid Stimulating Hormone 5.58 uIU/mL (0.27-4.20); Tumor Marker Alpha Fetoprotein 4.4 ng/mL (0-8.3)
[2021-07-27 16:12] LABS: HCG Tumor Marker < 1 mIU/mL (0-3)
[2021-07-27 16:16] LABS: Alanine Aminotransferase 8 U/L (0-41); Albumin Level 4.5 g/dL (3.5-5.2); Alkaline Phosphatase 90 IU/L (40-130); Anion Gap 17.4 (5-19); Aspartate Amino Transferase 9 U/L (0-40); Blood Urea Nitrogen 6 mg/dL (6-20); Calcium 9.6 mg/dL (8.5-10.5); Carbon Dioxide 30 mmol/L (22-29); Chloride 94 mmol/L (98-107); Globulin 2.8 g/dL (1.3-4.6); Glomerular Filtration Rate 149.2 mL/min (90-130); Glucose 77 mg/dL (65-115); Lactate Dehydrogenase 124 U/L (135-225); Osmolality Calculated 282 mOsm/kg (285-295); Potassium 3.4 mmol/L (3.5-5.1); Sodium 138 mmol/L (136-145); Total Bilirubin 0.6 mg/dL (0.15-1.2); Total Protein 7.3 g/dL (6.6-8.7)
== END 2021-07-27 13:49 | disposition home or self-care (01) ==
LOC: RADWPI 13:53 → ONCMED 14:41
PROVIDERS: Visit Provider Internal Medicine Medical Oncology
DX: C62.12 Malignant neoplasm of descended left testis (principal); C77.0 Secondary and unspecified malignant neoplasm of lymph nodes of head, face and neck; R91.1 Solitary pulmonary nodule; E03.9 Hypothyroidism, unspecified; Z79.899 Other long term (current) drug therapy
CPT/HCPCS: 36415; 71260; 74177; 80053; 82105; 83615; 84443; 84702; 85025; Q9967

== ENCOUNTER 2021-07-28 15:22 | Outpatient (CLI) | payer MEDICARE, MEDICAID, SELFPAY ==
[2021-07-28] MEDS: LORazepam 2 mg/mL INJ 1 mL 1 MG IV (16:12)
[2021-07-28] MEDS: sodium chloride 0.9% 250 ML 75 ML IV (16:12)
[2021-07-28] MEDS: ondansetron 2 mg/ML SDV 2 mL 8 MG IV (16:15)
[2021-07-28] MEDS: potassium chloride 20 MEQ in sodium chloride 0.9% 500 ML 255 MEQ IV (16:31)
--- NOTE | 2021-07-29 06:40 | ONC FU_ITS ---
Dr. Russell Patient Follow-Up Note Patient: Macario Porter Unit #: [id number]: [id number] Dicatated By: Allen Russell M.D.Date of Visit:Jul 28, 2021 Onc Med Follow-up/Prog Note Chief Complaint: Testicular cancer. History of Present Illness: This is a 41 year-old man with classic seminoma involving the left testicle, by clinical evaluation his disease was stage IS (pT1, N0, M0, S1) at initial diagnosis, but with subsequent progression to stage IIIB (pT1, N1, M1a). On 09/20/2017 he presented to the emergency room with pain in the left testicle, which had been getting worse over a couple of months. He also could feel a hard spot in the testicle. Testicular ultrasound showed enlarged left testicle measuring 5.8 x 4.6 x 5.8 cm with diffusely heterogeneous appearance, worrisome for neoplasm. His chest x-ray was unremarkable. He was referred to Dr. Yeager. On 09/25/2017 he underwent left radical orchiectomy. He tolerated the procedure well. His preoperative tumor markers included LDH mildly elevated at 335/241 U/L, AFP 4.3 ng/ML, and beta hCG < 1 mIU/mL. His staging CT abdomen/pelvis on 09/28/2017 showed subcentimeter retroperitoneal lymph nodes. The largest was in the para-aortic area and measured 9 mm. Also noted were multiple subcentimeter nodules at the right lung base, metastasis not excluded. There was a 2 cm lytic area without associated bone destruction in the left ilium. This was thought to most likely represent a benign lesion. Pathology showed an enlarged testis measuring 7.1 x 4.7 cm. The parenchyma was almost completely effaced by tumor measuring 6.9 x 4.5 cm. The tunica was noted to be intact. Histology showed germ cell neoplasm felt to be most consistent with classic seminoma with a component of IGCN. The immunoperoxidase panel showed that the tumor was positive for CD-117, PLAP, and OCT 3/4. It was negative for alpha-fetoprotein, inhibin, CK-cocktail, SCOTT, CD-34, and CEA. The beta hCG showed scattered rare positive cells. I had seen him initially on 10/06/2017. We discussed the possibility of immediate, short course adjuvant chemotherapy versus active surveillance. He opted for surveillance. He completed his staging with PET/CT on 11/27/2017. It showed a single left external iliac lymph node felt to most likely represent postoperative inflammatory changes. There was no other lymphadenopathy noted. Bilateral subcentimeter pulmonary nodules showed no focal increase in FDG activity and were felt to be intermediate for metastatic involvement. A focus of increased metabolic activity in the left thyroid lobe anteriorly appeared to be associated with a nodular density, and it was felt to be suspicious for neoplasia. Given those findings, he continued active surveillance was recommended for the seminoma. He was seen by Dr. Lackey in regard to the thyroid nodules. FNA biopsies of a 2.0 cm right thyroid nodule and a 1.4 cm left thyroid nodule both showed indeterminate cytopathology. They were ultimately confirmed to be benign. His surveillance CT scans of chest, abdomen, and pelvis on 05/21/2018 showed stable bilateral lung nodule. However, the abdomen/pelvis showed interval development of nonenlarged periaortic lymph node measuring 1.7 cm. The appearance was suspicious for metastatic involvement. He was seen for a follow-up visit on 06/12/2018. He was not overtly symptomatic. A follow-up CT of the abdomen/pelvis on 06/20/2018 showed progressive enlargement of the left periaortic lymph node, at that point measuring 2.5 x 2.2 cm. As it was clearly enlarging and indicative of metastatic disease, he was advised to undergo chemotherapy with 4 cycles of etoposide/cisplatin. However, as he wished to avoid chemotherapy if at all possible, he was given the option to have treatment with radiation as an alternative. He then completed radiation to periaortic lymph nodes on 09/13/2018 to a total dose of 3600 cGy. He continued follow-up with Dr. Olvera after the radiation. His surveillance CT abdomen/pelvis on 06/21/2019 showed residual left periaortic lymph node measuring 8.5 mm compared to 10.5 mm on the prior study from November 2018. Lung nodules in the right middle lobe and at the right lung base also appeared stable. There were no other interval changes reported. Chest x-ray on 10/16/2019 showed no concerning abnormalities. On 11/07/2019 he had presented with an obvious mass in the left supraclavicular area. At that point Dr. Olvera had recommended further evaluation with PET/CT and with needle biopsy of the supraclavicular mass. Neither of these were done. On 11/25/2019 he presented to the emergency room with multiple complaints, including chest pain, shortness of breath, and difficulty swallowing. His neck CT at that time showed a large heterogeneous mass in the posterior mediastinum encasing the descending thoracic aorta and with displacement of the pulmonary arteries, trachea, and esophagus. There was a necrotic mass in the left supraclavicular region measuring 5.9 x 4.6 cm consistent with adenopathy. On the chest CT the mediastinal mass was noted to measure 14.0 x 9.7 x 8.1 cm. Numerous calcified and partially calcified pulmonary nodules appeared stable. There was no evidence of disease progression in the abdomen/pelvis. He was transferred to [facility] for admission. His further evaluation there included needle biopsy of the supraclavicular mass, which should confirm recurrent seminoma. His tumor markers included elevated LDH at 1094 units/L, AFP 2.5 ng/mL, and mildly elevated beta-hCG at 5.3 mIU/mL. TTE showed low normal systolic function and external pressure and of the left atrium from the mediastinal mass. Brain MRI was normal. Pulmonary function studies showed FEV1 at 57% of predicted. The DLCO was low at 57%, but was at 78% when adjusted for alveolar volume. He was discharged with instructions to follow-up here for chemotherapy. He began his 1st of 4 planned cycles of chemotherapy with cisplatin/etoposide on 12/09/2019. He experienced significant nausea with the chemotherapy, despite antiemetic therapy with dexamethasone, ondansetron, and Lorazepam. He also tried Zyprexa, but tolerated it poorly. At day 15 he was neutropenic, ANC 500. He was treated with Neupogen and he was given empiric antibiotic coverage with Levaquin. He proceeded with cycle 2 on 12/30/2019. He was given Neulasta prophylactically with that cycle, and I also had him start Marinol/Compazine for nausea/anorexia. He continued to have significant nausea and fatigue with the chemotherapy, but his blood counts remained adequate. He was able to continue with cycle 3 on 01/20/2020 and with cycle 4 on 02/10/2020. Restaging CT scans on 03/31/2020 showed marked improvement in the mediastinal mass, reported to be less than 1/2 the size compared to the pretreatment study. On my own review it appeared to be significantly more than that. He was then followed on observation/surveillance. He has had no other ongoing medical illnesses. His other surgeries include thyroidectomy in 2017 and arthroscopic right knee surgery in January 2019. He has a history of smoking 1 pack of cigarettes daily for more than 20 years. He has been trying to quit. INTERIM HISTORY: CT scans of the chest, abdomen, and pelvis on 08/24/2020 showed continued decrease in the size of the posterior mediastinal infiltrating soft tissue, but with mild residual soft tissue thickening surrounding the esophagus beginning near the mago and extending inferiorly. Increased soft tissue was noted in the posterior mediastinal fat and the retrocrural space and there was mild soft tissue thickening surrounding approximately 50% of the descending aorta. There was no new or progressive adenopathy. Multiple right middle and bilateral lower lobe pulmonary nodules appeared stable. There was no metastatic disease or adenopathy noted in the abdomen/pelvis. His repeat CT scans of the chest, abdomen, and pelvis on 01/18/2021 showed stable appearance of the partially encasing soft tissue in the posterior mediastinum compared to the July 2020 study. Bilateral lower lobe and right middle lobe pulmonary nodules, some of which were calcified and some noncalcified, also appeared stable. The largest noncalcified nodule in the right middle lobe measured 7.7 mm. There was no adenopathy noted within the abdomen or pelvis. With those findings he continued his active surveillance. Surveillance CT scans of the chest, abdomen, and pelvis on 07/27/2021 showed a small amount of residual infiltrating soft tissue in the posterior mediastinum partially encasing the thoracic esophagus and descending thoracic aorta with unchanged appearance over multiple prior studies. A 7 mm ovoid nodule in the right middle lobe also appeared stable, as did additional tiny calcified and noncalcified pulmonary nodules. There was no adenopathy noted in the chest, abdomen, or pelvis. Overall, there was no evidence of progressed disease. He is seen for a follow-up visit. He has not been feeling good. Over the past 1 to 2 weeks he has had abdominal pain and nausea with recurrent episodes of vomiting. He has not been wanting to eat and he has not had much activity. His ECOG score is 2. He has not had fever. He has had some cold chills and sweating. He has had a little bit of sore throat. He has had cough productive of a light, foamy sputum. His breathing is sometimes shallow. He is still smoking. He does not complain of chest pain. Bowel and bladder function have been okay. He has no significant joint or bone pain. He does not complain of headache. He sometimes has dizziness and he sometimes has numbness in his feet. Medications: Cymbalta 1 Capsule (of 60 mg) Capsule Delayed Release Particles Oral daily, Levothyroxine Sodium 1 Tablet (of 150 mcg) Oral daily, LORazepam 0.5 - 1 Tablet (of 1 mg) Oral t.i.d. PRN Allergies: Penicillins and Sulfa Antibiotics. Vital Signs: Performed on Jul 28, 2021 15:39 Height - 71.00 in Weight - 206.8 lbs (LOW) BSA - 2.14 sq.m BMI - 28.84 Temperature - 97.4 F (LOW) Pulse - 77 /min Respiration - 18 /min BP - 150/93 mm(hg) (HIGH) O2 Sat - 97 % Pain - 4 Fatigue - 10 Physical Examination: Constitutional - He looks pretty good generally, Eyes - Sclerae nonicteric. Conjunctivae clear, ENMT - No lesions noted in the oral cavity, Hematologic/Lymphatic - No cervical, clavicular, or axillary adenopathy noted, Respiratory - Lungs sound clear, Cardiovascular - Heart rhythm is regular. There is no murmur, gallop, or rub noted, Abdomen - Soft. Liver and spleen are not enlarged. There is no abdominal mass or ascites noted. There is no inguinal adenopathy, Genitalia/Groin/Buttock (M) - The right testicle shows no mass, Extremities - No edema, Neurologic - No focal neurologic deficits noted. Lab/Imaging: Test performed on Jul 27, 2021 14:50 HCG, Serum (Quant) < 1 mIU/mL LDH (Total) 124 U/L Sodium 138 mmol/L TSH 5.58 uIU/mL Potassium 3.4 mmol/L Chloride 94 mmol/L CO2 30 mmol/L Anion Gap 17.4 BUN 6 mg/dL Creatinine 0.6 mg/dL Cr Clearance (Est) 230.3700 mL/min eGFR 149.2 mL/min Glucose 77 mg/dL Osmolality - Calculated 282 mOsm/kg Calcium 9.6 mg/dL Protein, Total 7.3 g/dL Albumin 4.5 g/dL Globulin 2.8 g/dL Bilirubin, Total 0.6 mg/dL ALT (SGPT) 8 U/L AST (SGOT) 9 U/L Alkaline Phosphatase 90 IU/L WBC 7.2 10 3/uL RBC 4.92 10 6/uL HGB 16.2 g/dL HCT 46.0 % MCV 93.5 fl MCH 32.9 pg MCHC 35.2 g/dL RDW 12.8 % Platelet Count 311 10 3/cmm MPV 9.2 fL Neutrophils 4.99 10 3/uL Lymphocytes 1.4 10 3/uL Monocytes 0.6 10 3/uL Eosinophils 0.1 10 3/uL Basophils 0.1 10 3/uL Neutrophil % 69.4 % Lymphocyte % 19.2 % Monocyte % 8.3 % Eosinophil % 1.4 % Basophils % 1.3 % NRBC % 0 % AFP 4.4 ng/mL Problem List: 1. Classic seminoma involving the left testicle. 2. Hypothyroidism. 3. GERD. 4. Erectile dysfunction. Problems Addressed with this Encounter and Plan: 1. Patient with classic seminoma involving the left testicle, stage IS (pT1, N0, M0, S1) at initial diagnosis in August 2017. He underwent left radical orchiectomy on 09/25/2017. He underwent radiation for CT evidence of recurrence in a left periaortic lymph node, completed on 09/13/2018 to a total dose of 3600 cGy. In October 2019 he had further recurrence with a bulky metastatic involvement in the mediastinum and left supraclavicular area. He underwent treatment with 4 cycles of cisplatin/etoposide, completed in January 2020. He experienced multiple toxicities during the chemotherapy, but he did have a complete response to the treatment. He has been followed on active surveillance following completion of his chemotherapy. During follow-up he had gradual improvement in his performance status, and has of his visit in March 2021 he was actually doing quite well. For the past 1 to 2 weeks he has been having abdominal pain and nausea with recurrent episodes of vomiting. The cause is uncertain, as there are no changes in his laboratory studies or acute findings on his CT scans. As such, he will be given IV fluids and IV antiemetics today and he will have further evaluation if his symptoms persist. I will tentatively plan a follow-up visit in 3 months. 2. He has hypothyroidism and his TSH level remains mildly elevated. He indicates he has been taking his medication regularly. As such, the levothyroxine dosage will now be increased to 200 mcg daily. Signed By: Allen Russell M.D. <<Signature on File>>
== END 2021-07-28 15:23 | disposition home or self-care (01) ==
PROVIDERS: PCP Internal Medicine; Visit Provider Internal Medicine Medical Oncology
DX: Z08 Encounter for follow-up examination after completed treatment for malignant neoplasm (principal); Z85.47 Personal history of malignant neoplasm of testis; R10.9 Unspecified abdominal pain; R11.2 Nausea with vomiting, unspecified; E03.9 Hypothyroidism, unspecified; K21.9 Gastro-esophageal reflux disease without esophagitis; Z79.890 Hormone replacement therapy; Z79.899 Other long term (current) drug therapy
CPT/HCPCS: 96365; 96366; 96367; 96375; 99215; J1100; J2060; J2405; J3480; J7040; J7050

== ENCOUNTER 2021-08-10 15:50 | Outpatient (CLI) | payer MEDICARE, MEDICAID, SELFPAY ==
[2021-08-10] MEDS: ondansetron 2 mg/ML SDV 2 mL 8 MG IV (16:11)
[2021-08-10 16:30] LABS: Basophils # 0.1 10^3/uL (0.0-0.1); Basophils % 0.9 %; Eosinophils % 0.3 %; Hematocrit 44.7 % (42.0-52.0); Hemoglobin 15.1 g/dL (11.7-16.6); Lymphocytes % 12.2 %; Mean Corpuscular HGB Conc 33.8 g/dL (30.0-36.0); Mean Corpuscular Hemoglobin 31.9 pg (28.0-34.0); Mean Corpuscular Volume 94.5 fl (80-94); Monocytes # 0.4 10^3/uL (0.2-0.9); Monocytes % 4.6 %; Neutrophils # 6.36 10^3/uL (1.8-7.7); Neutrophils % 81.7 %; Nucleated Red Blood Cells % 0 %; Platelet Count 325 10^3/cmm (130-400); Red Blood Count 4.73 10^6/uL (4.1-5.3); Red Cell Distribution Width 13.3 % (12.1-15.1); White Blood Count 7.8 10^3/uL (4.0-10.0)
[2021-08-10] MEDS: sodium chloride 0.9% 500 ML 999 ML IV (16:31)
[2021-08-10 17:05] LABS: Alanine Aminotransferase 8 U/L (0-41); Albumin Level 4.5 g/dL (3.5-5.2); Alkaline Phosphatase 77 IU/L (40-130); Anion Gap 17.6 (5-19); Aspartate Amino Transferase 9 U/L (0-40); Blood Urea Nitrogen 9 mg/dL (6-20); Calcium 9.4 mg/dL (8.5-10.5); Carbon Dioxide 26 mmol/L (22-29); Chloride 98 mmol/L (98-107); Globulin 2.7 g/dL (1.3-4.6); Glomerular Filtration Rate 124.9 mL/min (90-130); Glucose 109 mg/dL (65-115); Osmolality Calculated 285 mOsm/kg (285-295); Potassium 3.6 mmol/L (3.5-5.1); Sodium 138 mmol/L (136-145); Total Bilirubin 0.7 mg/dL (0.15-1.2); Total Protein 7.2 g/dL (6.6-8.7)
== END 2021-08-10 15:51 | disposition home or self-care (01) ==
PROVIDERS: PCP Internal Medicine; Visit Provider Internal Medicine Medical Oncology
DX: C62.92 Malignant neoplasm of left testis, unspecified whether descended or undescended (principal); E03.9 Hypothyroidism, unspecified; R10.9 Unspecified abdominal pain; R11.2 Nausea with vomiting, unspecified; Z79.899 Other long term (current) drug therapy
CPT/HCPCS: 80053; 85025; 96361; 96365; 96375; J1100; J2405; J7040

== ENCOUNTER 2021-11-18 14:56 | Outpatient (CLI) | payer MEDICARE, MEDICAID, SELFPAY ==
[2021-11-18 16:04] LABS: Basophils # 0.1 10^3/uL (0.0-0.1); Eosinophils # 0.1 10^3/uL (0.0-0.8); Eosinophils % 0.9 %; Hemoglobin 15.4 g/dL (11.7-16.6); Lymphocytes # 1.5 10^3/uL (0.8-4.8); Lymphocytes % 18.4 %; Mean Corpuscular HGB Conc 34.2 g/dL (30.0-36.0); Mean Corpuscular Hemoglobin 33.2 pg (28.0-34.0); Monocytes # 0.4 10^3/uL (0.2-0.9); Monocytes % 4.9 %; Neutrophils # 6.11 10^3/uL (1.8-7.7); Neutrophils % 74.6 %; Nucleated Red Blood Cells % 0 %; Platelet Count 319 10^3/cmm (130-400); Red Blood Count 4.64 10^6/uL (4.1-5.3); Red Cell Distribution Width 12.9 % (12.1-15.1); White Blood Count 8.2 10^3/uL (4.0-10.0)
[2021-11-18 16:51] LABS: Testosterone Total 342.9 ng/dL (249-836); Thyroid Stimulating Hormone 0.11 uIU/mL (0.27-4.20); Tumor Marker Alpha Fetoprotein 4.1 ng/mL (0-8.3)
[2021-11-18 17:03] LABS: Alanine Aminotransferase 9 U/L (0-41); Albumin Level 4.5 g/dL (3.5-5.2); Alkaline Phosphatase 87 IU/L (40-130); Anion Gap 17.3 (5-19); Aspartate Amino Transferase 9 U/L (0-40); Blood Urea Nitrogen 6 mg/dL (6-20); Carbon Dioxide 24 mmol/L (22-29); Chloride 101 mmol/L (98-107); Globulin 2.1 g/dL (1.3-4.6); Glomerular Filtration Rate 184.2 mL/min (90-130); Glucose 88 mg/dL (65-115); Osmolality Calculated 283 mOsm/kg (285-295); Potassium 4.3 mmol/L (3.5-5.1); Sodium 138 mmol/L (136-145); Total Bilirubin 0.3 mg/dL (0.15-1.2); Total Protein 6.6 g/dL (6.6-8.7)
[2021-11-18 20:13] LABS: Lactate Dehydrogenase 218 U/L (135-225)
== END 2021-11-18 14:57 | disposition home or self-care (01) ==
PROVIDERS: Internal Medicine Medical Oncology; PCP Internal Medicine; Visit Provider Nurse Practitioner Family
DX: Z08 Encounter for follow-up examination after completed treatment for malignant neoplasm (principal); Z85.47 Personal history of malignant neoplasm of testis; E03.9 Hypothyroidism, unspecified; K21.9 Gastro-esophageal reflux disease without esophagitis; N52.9 Male erectile dysfunction, unspecified; Z79.899 Other long term (current) drug therapy; Z92.21 Personal history of antineoplastic chemotherapy; Z92.3 Personal history of irradiation
CPT/HCPCS: 36415; 80053; 82105; 83615; 84403; 84443; 85025; 99214

== ENCOUNTER 2022-06-20 14:10 | Emergency (ER) | payer MEDICARE, MEDICAID, SELFPAY ==
[2022-06-20 14:27] VITALS: BP 126/86; PULSE 60; RESP 16; TEMP 36.6; O2SAT 98; BMI 26.9
--- NOTE | 2022-06-20 15:14 | ED_ITS ---
HPI - Abdominal Pain General: Chief Complaint: Abdominal Pain Stated Complaint: N/V SOB Time Seen by Provider: 06/20/22 14:57 Source: patient and family Mode of arrival: ambulatory Limitations: no limitations History of Present Illness: Patient is a 42-year-old male who presents to the ED today for evaluation of abdominal pain, nausea, vomiting. Patient tells me a few years ago he was diagnosed with testicular cancer and underwent radiation. He states later he was found to have metastasis spread to his lower intestine and underwent chemotherapy for this (after reviewing patient's PMH this is not accurate and he never had mets to the intestine but did end up having mediastinal and thyroid involvement). Patient states he finished chemotherapy approximately 2 years ago. He had adequate follow-up for the next 1.5 years with repeat imaging every 6 months and states he remained disease-free. He states he missed his last follow-up appointment because he simply did not want to go . Patient states he has chronically suffered from intermittent abdominal pains following chemotherapy. He states he will get episodes similar to today with significant pain, nausea, and vomiting. Patient states he has never been evaluated regarding this. Of note he does smoke marijuana daily. Patient repo rts occasional alcohol use. No other drug use. He does not complain of any diarrhea or significant constipation. No fevers. MD elicited complaint: abdominal pain Onset (ago): hour(s) Pain Consistency: constant Location: LUQ and LLQ Severity: severe Quality: cramping and sharp Radiation: none Migration to: no migration Exacerbating factors: eating Relieving factors: nothing Associated Symptoms: Reports nausea and vomiting; Denies change in bowel habits, chills, diarrhea, dysuria, fever(s), hematochezia, hematuria, hematemesis and melena Review of Systems Const: Denies: fever(s), chills, body aches, fatigue or malaise Card: Denies: chest pain Resp: Denies: dyspnea GI: Reports: abdominal pain, nausea and vomiting; Denies: hematemesis, diarrhea, change in bowel habits, hematochezia or melena : Denies: flank pain, dysuria or hematuria Musc: Denies: neck pain, back pain, extremity pain or joint pain Skin/Breast: Denies: rash Neuro: Denies: headache(s), numbness in extremities, weakness in extremities, sensory changes or dizziness PFSH ED PFSH: Medical History Degenerative arthritis Hypothyroidism Seminoma of left testis Surgical History H/O circumcision History of knee surgery (01/2019) Right knee surgery History of surgical removal of testicle (09/25/17) Left radical orchiectomy History of total thyroidectomy (2017) Family History Father Cancer colon cancer Other Hypertension Denies family history of Anesthesia complication Bleeding disorder Social History Smoking and tobacco status: current every day smoker (1.5 ppd) Alcohol intake: current Alcohol intake frequency: holidays/special occasions only Household members: spouse Marital status: Current occupational status: disabled History of recent travel: No Physical Exam Const: COMMON NORMALS: average body habitus, patient oriented x3, no limitations and alert GENERAL APPEARANCE: cooperative ORIENTATION/CONSCIOUSNESS: Yes awake, Yes oriented to person, Yes oriented to place and Yes oriented to time OTHER: appears nauseous and looks like he does not feel well HENMT: COMMON NORMALS: normocephalic and atraumatic HEAD & SCALP: normal to inspection, normocephalic and atraumatic Resp: COMMON NORMALS: normal respiratory effort and clear to auscultation bilaterally AUSCULTATION: clear to auscultation bilaterally Cardio: COMMON NORMALS: regular rate and regular rhythm RATE: regular rate RHYTHM: regular rhythm GI: COMMON NORMALS: Normal to inspection, nondistended, normoactive bowel sounds present, Soft to palpation, No hepatosplenomegaly present and no masses INSPECTION: Yes normal to inspection AUSCULTATION: Yes normoactive bowel sounds PALPATION: Yes Soft to palpation, Yes Tenderness to palpation present (GI) (throughout L side of abdomen), Yes Guarding due to palpation present (GI), No Rigid due to palpation and Yes No hepatosplenomegaly present : COMMON NORMALS: Yes no CVA tenderness BLADDER/KIDNEY EXAM: Yes no CVA tenderness Back/Pelvis: COMMON NORMALS: no CVA tenderness, thoracic and lumbar spine normal to inspection, no thoracic nor lumbar tenderness and thoraco-lumbar ROM normal Extremity: COMMON NORMALS: normal to inspection GENERAL: Yes normal exam except as noted Neuro: ALEXANDER COMA SCALE: document GCS findings [place] coma scale eye opening: Spontaneous Alexander coma scale verbal response: Orientated [place] coma scale motor response: Obey commands [place] coma scale total score: 15 COMMON NORMALS: patient oriented x3, moves all extremities, no focal motor deficits and no sensory deficits noted SENSORIUM/ORIENTATION: Yes alert, Yes oriented to person, Yes oriented to place and Yes oriented to time Skin: COMMON NORMALS: no rashes or lesions noted GENERAL SKIN EXAM: no rashes or lesions noted Course Vital Signs: Vital signs: Vital Signs Temperature 97.8 F 06/20/22 14:27 Pulse Rate 98 06/20/22 17:18 Respiratory Rate 14 06/20/22 17:18 Blood Pressure 165/88 06/20/22 17:18 Pulse Oximetry 96 06/20/22 17:18 Oxygen Delivery Me thod 06/20/22 14:27 MDM - Abdominal Pain Medical Decision Making Patient is a 42-year-old male here for complaints of abdominal pains that he s tates has been fairly constant but waxes and wanes over the past 1.5 years. He states he missed his last surveillance appointment with his oncologist. He did recently move care down here to Dr. Russell and met with him recently. Patient's vital signs are stable. His blood work is overall unremarkable. CT scan appears stable (this was only performed of abdominal/pelvis as this was his main complaint today). Nausea has improved. Patient would like to go home. There seems to be a cyclic component to his pain/vomiting raising the suspicion for hyperemesis cannabis syndrome as he does use marijuana daily. Patient is wanting something for pain/nausea to go home with. Will provide small amount from ED but anything further I would like him to speak to PCP and/or oncologist. Lab Data : 06/20/22 15:14 06/20/22 15:14 Labs/Radiology: Radiology Impressions Abdomen/Pelvis CT 06/20/22 15:23 IMPRESSION: 1. Comparison CT 07/27/2021. Stable tiny sclerotic acetabular focus and tiny hypodense hepatic lesion as described above. Otherwise no acute abdominopelvic findings or other signs of metastatic disease. 2. Stable right middle lobe pulmonary nodule. Laboratory Results WBC 8.9 10^3/uL (4.0-10.0) 06/20/22 15:14 RBC 4.75 10^6/uL (4.1-5.3) 06/20/22 15:14 Hgb 15.3 g/dL (11.7-16.6) 06/20/22 15:14 Hct 45.8 % (42.0-52.0) 06/20/22 15:14 MCV 96.4 fl (80-94) H 06/20/22 15:14 MCH 32.2 pg (28.0-34.0) 06/20/22 15:14 MCHC 33.4 g/dL (30.0-36.0) 06/20/22 15:14 RDW 12.5 % (12.1-15.1) 06/20/22 15:14 Plt Count 325 10^3/cmm (130-400) 06/20/22 15:14 MPV 9.2 fL (7.4-10.4) 06/20/22 15:14 Neut % (Auto) 86.6 % 06/20/22 15:14 Lymph % (Auto) 9.2 % 06/20/22 15:14 Hickman % (Auto) 3.1 % 06/20/22 15:14 Eos % (Auto) 0.1 % 06/20/22 15:14 Baso % (Auto) 0.8 % 06/20/22 15:14 Neut # (Auto) 7.72 10^3/uL (1.8-7.7) H 06/20/22 15:14 Lymph # (Auto) 0.8 10^3/uL (0.8-4.8) 06/20/22 15:14 Hickman # (Auto) 0.3 10^3/uL (0.2-0.9) 06/20/22 15:14 Eos # (Auto) 0.0 10^3/uL (0.0-0.8) 06/20/22 15:14 Baso # (Auto) 0.1 10^3/uL (0.0-0.1) 06/20/22 15:14 Nucleated RBC % (auto) 0 % 06/20/22 15:14 Nucleated RBCs # 0.0 /100WBC 06/20/22 15:14 Sodium 140 mmol/L (136-145) 06/20/22 15:14 Potassium 4.3 mmol/L (3.5-5.1) 06/20/22 15:14 Chloride 102 mmol/L (98-107) 06/20/22 15:14 Carbon Dioxide 27 mmol/L (22-29) 06/20/22 15:14 Anion Gap 15.3 (5-19) 06/20/22 15:14 BUN 11 mg/dL (6-20) 06/20/22 15:14 Creatinine 0.6 mg/dL (0.7-1.2) L 06/20/22 15:14 GFR Calculation 148.5 mL/min (90-130) H 06/20/22 15:14 Glucose 108 mg/dL (65-115) 06/20/22 15:14 Calculated Osmolality 290 mOsm/kg (285-295) 06/20/22 15:14 Calcium 9.9 mg/dL (8.5-10.5) 06/20/22 15:14 Total Bilirubin 0.5 mg/dL (0.15-1.2) 06/20/22 15:14 AST 13 U/L (0-40) 06/20/22 15:14 ALT 9 U/L (0-41) 06/20/22 15:14 Alkaline Phosphatase 97 U/L (40-130) 06/20/22 15:14 Total Protein 7.4 g/dL (6.6-8.7) 06/20/22 15:14 Albumin 5.0 g/dL (3.5-5.2) 06/20/22 15:14 Globulin 2.4 g/dL (1.3-4.6) 06/20/22 15:14 Lipase 27 U/L (13-60) 06/20/22 15:14 Ethyl Alcohol < 10 mg/dL (0-10) 06/20/22 15:14 Discharge Plan Discharge Patient Disposition: Home Clinical Impression: Abdominal pain Qualifiers: Abdominal location: unspecified location Qualified Code(s): R10.9 - Unspecified abdominal pain Nausea and vomiting Qualifiers: Vomiting type: unspecified Qualified Code(s): R11.2 - Nausea with vomiting, unspecified Condition: Stable Prescriptions: New promethazine 50 mg tablet 50 mg PO TID PRN (Reason: nausea and vomiting) Qty: 20 0RF tramadol 50 mg tablet 50 mg PO Q6H PRN (Reason: pain) Qty: 14 0RF No Action trazodone 50 mg tablet 50 mg PO BEDTIME Qty: 30 0RF clindamycin HCl 300 mg capsule 300 mg PO Q6H 7 Days Qty: 28 1RF levothyroxine 150 mcg tablet See Rx Instructions .ROUTE .COMPLEX Qty: 90 1RF Dose Instruction: TAKE 1 TABLET BY MOUTH EVERY MORNING Rx Instructions: TAKE 1 TABLET BY MOUTH EVERY MORNING Discharge Orders: Discharge ED (Routine); Ordered 06/20/22 Ordered By: Rashida Anaya Patient Instructions: Abdominal Pain (ED), Opioid Safety Activity Restrictions/Additional Instructions: As we discussed I would like patient to follow-up with his primary care provider and/or Dr. Russell as soon as possible for re-evaluation of symptoms. He can return to the emergency department at anytime for worsening or severe abdominal pain, repetitive episodes of vomiting, fevers, or any other concerns you may have. 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
--- NOTE | 2022-06-20 15:23 | CTR_ITS ---
PROCEDURE INFORMATION: Exam: CT Abdomen And Pelvis With Contrast Exam date and time: 06/20/2022 3:57 PM Age: 42 years old Clinical indication: Abdominal pain; Localized; Prior surgery; Surgery type: Left testis; Additional info: L sided ab pain, HX of testicular CA with mets to intestine; Remission x 2 TECHNIQUE: Imaging protocol: Computed tomography of the abdomen and pelvis with contrast. Radiation optimization: All CT scans at this facility use at least one of these dose optimization techniques: automated exposure control; mA and/or kV adjustment per patient size (includes targeted exams where dose is matched to clinical indication); or iterative reconstruction. Contrast material: OMNI 350; Contrast volume: 80 ml; Contrast route: INTRAVENOUS (IV); COMPARISON: CT chest abd pel w con* 07/27/2021 2:19 PM RADIATION DOSE METRICS: Total DLP (mGy-cm): 661.73 FINDINGS: Lungs: Partially visualized nodular density anterior right middle lobe measuring about 5-6 mm, unchanged. Liver: Liver is normal in size without cirrhosis. Stable tiny hypodense lesion in the right hepatic dome measuring 4 mm. Gallbladder and bile ducts: Normal. No calcified stones. No ductal dilation. Pancreas: Normal. No ductal dilation. Spleen: Normal. No splenomegaly. Adrenal glands: Normal. No mass. Kidneys and ureters: No obstructing calculus. No hydronephrosis. Stomach and bowel: Unremarkable. No obstruction. No mucosal thickening. Appendix: No evidence of appendicitis. Intraperitoneal space: Unremarkable. No free air. No significant fluid collection. Vasculature: No abdominal aortic aneurysm. Lymph nodes: No enlarged lymph nodes. Urinary bladder: Unremarkable as visualized. Reproductive: Unremarkable as visualized. Bones/joints: Stable tiny sclerotic focus in the left acetabulum measuring 4 mm, nonspecific. No acute osseous findings otherwise. Soft tissues: No acute findings. CT/CT abdomen pelvis w con* [id number] IMPRESSION: 1. Comparison CT 07/27/2021. Stable tiny sclerotic acetabular focus and tiny hypodense hepatic lesion as described above. Otherwise no acute abdominopelvic findings or other signs of metastatic disease. 2. Stable right middle lobe pulmonary nodule.
[2022-06-20 15:26] LABS: Basophils # 0.1 10^3/uL (0.0-0.1); Basophils % 0.8 %; Eosinophils % 0.1 %; Hematocrit 45.8 % (42.0-52.0); Hemoglobin 15.3 g/dL (11.7-16.6); Lymphocytes # 0.8 10^3/uL (0.8-4.8); Lymphocytes % 9.2 %; Mean Corpuscular HGB Conc 33.4 g/dL (30.0-36.0); Mean Corpuscular Hemoglobin 32.2 pg (28.0-34.0); Mean Corpuscular Volume 96.4 fl (80-94); Mean Platelet Volume 9.2 fL (7.4-10.4); Monocytes # 0.3 10^3/uL (0.2-0.9); Monocytes % 3.1 %; Neutrophils # 7.72 10^3/uL (1.8-7.7); Neutrophils % 86.6 %; Nucleated Red Blood Cells % 0 %; Platelet Count 325 10^3/cmm (130-400); Red Blood Count 4.75 10^6/uL (4.1-5.3); Red Cell Distribution Width 12.5 % (12.1-15.1); White Blood Count 8.9 10^3/uL (4.0-10.0)
[2022-06-20 15:46] LABS: Alanine Aminotransferase 9 U/L (0-41); Alkaline Phosphatase 97 U/L (40-130); Anion Gap 15.3 (5-19); Aspartate Amino Transferase 13 U/L (0-40); Blood Urea Nitrogen 11 mg/dL (6-20); Calcium 9.9 mg/dL (8.5-10.5); Carbon Dioxide 27 mmol/L (22-29); Chloride 102 mmol/L (98-107); Globulin 2.4 g/dL (1.3-4.6); Glomerular Filtration Rate 148.5 mL/min (90-130); Glucose 108 mg/dL (65-115); Lipase 27 U/L (13-60); Osmolality Calculated 290 mOsm/kg (285-295); Potassium 4.3 mmol/L (3.5-5.1); Sodium 140 mmol/L (136-145); Total Bilirubin 0.5 mg/dL (0.15-1.2); Total Protein 7.4 g/dL (6.6-8.7)
[2022-06-20] MEDS: haloperidol inj 5 mg/mL INJ 1 mL 2.5 MG IVP (15:47)
[2022-06-20 15:48] VITALS: RESP 15
[2022-06-20] MEDS: sodium chloride 0.9% 1,000 ML 999 ML IV (15:48)
[2022-06-20] MEDS: ondansetron 2 mg/ML SDV 2 mL 4 MG IVP (15:48)
[2022-06-20] MEDS: morphine 4 mg/mL SDV 1 mL IVP (15:48)
[2022-06-20 15:49] LABS: Alcohol Level < 10 mg/dL (0-10)
[2022-06-20] MEDS: iohexol 350 mg/mL 100 mL Btl IV (15:59)
[2022-06-20 17:18] VITALS: BP 165/88; PULSE 98; RESP 14; O2SAT 96
[2022-06-20] MEDS: LORazepam 1 mg Tablet PO (17:19)
== END 2022-06-20 17:20 | disposition home or self-care (01) ==
PROVIDERS: Family Medicine; Emergency Provider Physician Assistant
DX: R10.9 Unspecified abdominal pain (principal); R11.2 Nausea with vomiting, unspecified; F17.210 Nicotine dependence, cigarettes, uncomplicated
CPT/HCPCS: 74177; 80053; 80307; 83690; 85025; 96361; 96374; 96375; 99285; J1630; J2270; J2405; J7030; Q9967

== ENCOUNTER 2022-06-22 15:30 | Oncology outpatient (recurring) (ONCR) | payer MEDICARE, MEDICAID, SELFPAY ==
[2022-05-31 12:53] LABS: Erythrocyte Sedimentation Rate 3 mm/hr (0-10)
[2022-05-31 12:54] LABS: Basophils # 0.1 10^3/uL (0.0-0.1); Basophils % 1.3 %; Eosinophils # 0.1 10^3/uL (0.0-0.8); Hematocrit 39.9 % (42.0-52.0); Hemoglobin 13.9 g/dL (11.7-16.6); Lymphocytes # 2.1 10^3/uL (0.8-4.8); Lymphocytes % 25.8 %; Mean Corpuscular HGB Conc 34.8 g/dL (30.0-36.0); Mean Corpuscular Hemoglobin 32.3 pg (28.0-34.0); Mean Corpuscular Volume 92.8 fl (80-94); Mean Platelet Volume 9.3 fL (7.4-10.4); Monocytes # 0.4 10^3/uL (0.2-0.9); Monocytes % 5.3 %; Neutrophils # 5.29 10^3/uL (1.8-7.7); Neutrophils % 66.3 %; Nucleated Red Blood Cells % 0 %; Platelet Count 365 10^3/cmm (130-400); Red Cell Distribution Width 12.6 % (12.1-15.1)
[2022-05-31 13:01] LABS: HCG Tumor Marker 1 mIU/mL (0-3)
[2022-05-31 13:06] LABS: Free T4 Free Thyroxine 1.68 ng/dL (0.82-1.77); Testosterone Total 345.1 ng/dL (249-836); Thyroid Stimulating Hormone 1.03 uIU/mL (0.27-4.20); Tumor Marker Alpha Fetoprotein 4.5 ng/mL (0-8.3)
[2022-05-31 13:17] LABS: Alanine Aminotransferase 8 U/L (0-41); Albumin Level 4.7 g/dL (3.5-5.2); Alkaline Phosphatase 95 IU/L (40-130); Anion Gap 19.1 (5-19); Aspartate Amino Transferase 15 U/L (0-40); Blood Urea Nitrogen 5 mg/dL (6-20); C Reactive Protein 18.5 mg/L (0.0-4.9); Calcium 9.6 mg/dL (8.5-10.5); Carbon Dioxide 26 mmol/L (22-29); Chloride 99 mmol/L (98-107); Globulin 2.5 g/dL (1.3-4.6); Glomerular Filtration Rate 124.3 mL/min (90-130); Glucose 94 mg/dL (65-115); Lactate Dehydrogenase 155 U/L (135-225); Osmolality Calculated 287 mOsm/kg (285-295); Potassium 4.1 mmol/L (3.5-5.1); Sodium 140 mmol/L (136-145); Total Bilirubin 0.6 mg/dL (0.15-1.2); Total Protein 7.2 g/dL (6.6-8.7)
[2022-06-01 09:19] LABS: T3 Total 113 ng/dL (76-181)
== END 2022-06-29 23:59 | disposition home or self-care (01) ==
LOC: RAD 06-23 00:01 → ONCMED 06-30 06:47
PROVIDERS: Internal Medicine Medical Oncology; Visit Provider Nurse Practitioner Family
DX: Z53.9 Procedure and treatment not carried out, unspecified reason (principal)
CPT/HCPCS: 36415; 80053; 82105; 83615; 84403; 84439; 84443; 84480; 84702; 85025; 85651; 86140; 99214

== ENCOUNTER 2022-09-05 05:01 | Emergency (ER) | payer MEDICARE, MEDICAID, SELFPAY ==
[2022-09-05 05:06] VITALS: BP 144/85; PULSE 71; RESP 18; TEMP 36.6; O2SAT 95; BMI 25.8
--- NOTE | 2022-09-05 05:14 | CTR_ITS ---
PROCEDURE INFORMATION: Exam: CT Abdomen And Pelvis With Contrast Exam date and time: 09/05/2022 6:46 AM Age: 42 years old Clinical indication: Abdominal pain; Generalized; Prior surgery; Surgery date: 6+ months; Surgery type: Left radical orchiectomy for testicular CA; Additional info: Abd pain, vomiting, HX lung mass TECHNIQUE: Imaging protocol: Computed tomography of the abdomen and pelvis with contrast. Radiation optimization: All CT scans at this facility use at least one of these dose optimization techniques: automated exposure control; mA and/or kV adjustment per patient size (includes targeted exams where dose is matched to clinical indication); or iterative reconstruction. Contrast material: OMNI 350; Contrast volume: 100 ml; Contrast route: INTRAVENOUS (IV); COMPARISON: 1. CT abdomen pelvis w con* [id number] 06/20/2022 3:[address] chest abd pel w con* 07/27/2021 2:[address] chest abd pel w con* 01/18/2021 12:03 PM RADIATION DOSE METRICS: Total DLP (mGy-cm): 652.13 FINDINGS: Lungs: Stable small right middle lobe calcified and noncalcified granulomas. Mediastinal space: Mild lower esophageal thickening suggestive of esophagitis. Liver: Redemonstrated incidental tiny 5 mm hepatic dome cyst. Mild diffuse fatty infiltration of the liver. Gallbladder and bile ducts: No acute abnormality. No calcified stones. No ductal dilation. Pancreas: No acute abnormality. No ductal dilation. Spleen: No acute abnormality. Adrenal glands: No acute abnormality. No mass. Kidneys and ureters: No acute abnormality. No hydronephrosis. Stomach and bowel: Mild amount of fluid within stomach. No significant or disproportionate large or small bowel distention. Fluid within small bowel with scattered small nonspecific air-fluid levels as well as segments of slightly thickened nondistended small bowel. Nondistended colon. No evidence of diverticulitis. Appendix: Grossly normal nondilated visualized appendix. Intraperitoneal space: No significant fluid collection. No free air. Vasculature: No acute abnormality. No abdominal aortic aneurysm. Lymph nodes: No enlarged lymph nodes. A few stable tiny retroperitoneal lymph nodes. Urinary bladder: Unremarkable as visualized. Reproductive: Unremarkable as visualized. Bones/joints: No acute osseous abnormality. No dislocation. Soft tissues: No significant soft tissue abnormalities. CT/CT abdomen pelvis w con* [id number] IMPRESSION: 1. Mild ileus versus gastroenteritis or nonspecific enteritis. 2. Mild diffuse fatty infiltration of the liver. 3. Mild lower esophageal thickening suggestive of esophagitis.
[2022-09-05 05:34] VITALS: RESP 18
[2022-09-05] MEDS: HYDROmorphone 1 mg/mL INJ 1 mL IVP ×2 (05:34→06:43)
[2022-09-05] MEDS: sodium chloride 0.9% 1,000 ML 999 ML IV ×2 (05:34→06:23)
[2022-09-05] MEDS: ondansetron 2 mg/ML SDV 2 mL 8 MG IVP (05:34)
[2022-09-05 05:46] LABS: Basophils % 0.2 %; Hematocrit 45.8 % (42.0-52.0); Hemoglobin 16.1 g/dL (11.7-16.6); Lymphocytes # 1.2 10^3/uL (0.8-4.8); Lymphocytes % 6.1 %; Mean Corpuscular HGB Conc 35.2 g/dL (30.0-36.0); Mean Corpuscular Hemoglobin 31.8 pg (28.0-34.0); Mean Corpuscular Volume 90.3 fl (80-94); Mean Platelet Volume 9.3 fL (7.4-10.4); Monocytes # 0.5 10^3/uL (0.2-0.9); Monocytes % 2.5 %; Neutrophils # 18.48 10^3/uL (1.8-7.7); Neutrophils % 90.7 %; Nucleated Red Blood Cells % 0 %; Platelet Count 328 10^3/cmm (130-400); Red Blood Count 5.07 10^6/uL (4.1-5.3); Red Cell Distribution Width 12.1 % (12.1-15.1); White Blood Count 20.4 10^3/uL (4.0-10.0)
--- NOTE | 2022-09-05 05:49 | ED_ITS ---
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 He underwent radiation and chemo for this in the past. He presents with 2 days of abdominal pain, generalized, vomiting everything he takes in, and lack of bowel movements. His belly is tight and distended he says. He denies fever. He denies any history of belly surgery MD elicited complaint: abdominal pain Pertinent past history: other Onset (ago): day(s) Pain Consistency: constant Location: Diffuse Severity: moderate Quality: stabbing and aching Radiation: none Migration to: no migration Exacerbating factors: vomiting Relieving factors: nothing Associated Symptoms: Reports anorexia, belching, bloating, constipation, poor appetite and vomiting; Denies diarrhea, dysuria, fever(s) and hematemesis Review of Systems Const: Denies: fever(s) ENMT: Reports: throat pain (From vomiting) Card: Denies: chest pain or palpitations Resp: Denies: dyspnea, productive cough or non-productive cough GI: Reports: vomiting, constipation, bloating and belching; Denies: hematemesis or diarrhea : Denies: dysuria Skin/Breast: Denies: rash Neuro: Reports: headache(s) PFSH ED PFSH: Medical History Degenerative arthritis Hypothyroidism Seminoma of left testis Surgical History H/O circumcision History of knee surgery (01/2019) Right knee surgery History of surgical removal of testicle (09/25/17) Left radical orchiectomy History of total thyroidectomy (2017) Family History Father Cancer colon cancer Other Hypertension Denies family history of Anesthesia complication Bleeding disorder Social History Smoking and tobacco status: current every day smoker (1.5 ppd) Alcohol intake: current Alcohol intake frequency: holidays/special occasions only Household members: spouse Marital status: Current occupational status: disabled History of recent travel: No Physical Exam Const: GENERAL APPEARANCE: cooperative and ill appearing; not comfortable and not frail appearing HENMT: COMMON NORMALS: normocephalic, atraumatic and Normal external nose present HEAD & SCALP: normocephalic and atraumatic FACE & SINUS: normal facial exam and face symmetric NOSE: Normal external nose present Eye: COMMON NORMALS: Equal, round and reactive pupils present and EOMs intact bilaterally PUPIL: Yes Equal, round and reactive pupils present Neck/C-Spine: GENERAL: Yes trachea midline Chest: CHEST: Yes Symmetrical chest wall rise Resp: COMMON NORMALS: normal respiratory effort, No retractions, No use of accessory muscles and clear to auscultation bilaterally AUSCULTATION: clear to auscultation bilaterally Cardio: COMMON NORMALS: regular rate and regular rhythm RATE: regular rate RHYTHM: regular rhythm GI: PALPATION: Yes Firmness to palpation present (GI), Yes Tenderness to palpation present (GI) and Yes Guarding due to palpation present (GI) : COMMON NORMALS: Yes no CVA tenderness BLADDER/KIDNEY EXAM: Yes no CVA tenderness Back/Pelvis: COMMON NORMALS: no CVA tenderness Extremity: COMMON NORMALS: no pedal edema Neuro: NIKKI COMA SCALE: document GCS findings Nikki coma scale eye opening: Spontaneous Nikki coma scale verbal response: Orientated [place] coma scale motor response: Obey commands Nikki coma scale total score: 15 SENSORY EXAM: Yes extremities (intact) Psych: COMMON NORMALS: speech normal SPEECH: Yes normal speech Skin: COMMON NORMALS: no rashes or lesions noted GENERAL SKIN EXAM: no rashes or lesions noted Course Vital Signs: Vital signs: Vital Signs Temperature 97.8 F 09/05/22 05:06 Pulse Rate 59 L 09/05/22 09:00 Respiratory Rate 14 09/05/22 09:00 Blood Pressure 122/76 09/05/22 09:00 Pulse Oximetry 96 09/05/22 09:00 Oxygen Delivery Me thod 09/05/22 09:00 MDM - Abdominal Pain Medical Decision Making Vitals are stable. Patient is afebrile. White blood cell count of 20. 91% neutrophils. He will go for CT. Other laboratory is pending. He will be checked out to Dr. Connolly at shift change pending results. He has 2 L of fluid, antiemetics and pain medication ordered. Lab Data : 09/05/22 05:23 09/05/22 05:23 Labs/Radiology: Radiology Impressions Abdomen/Pelvis CT 09/05/22 05:14 IMPRESSION: 1. Mild ileus versus gastroenteritis or nonspecific enteritis. 2. Mild diffuse fatty infiltration of the liver. 3. Mild lower esophageal thickening suggestive of esophagitis. Laboratory Results WBC 20.4 10^3/uL (4.0-10.0) H 09/05/22 05:23 RBC 5.07 10^6/uL (4.1-5.3) 09/05/22 05:23 Hgb 16.1 g/dL (11.7-16.6) 09/05/22 05:23 Hct 45.8 % (42.0-52.0) 09/05/22 05:23 MCV 90.3 fl (80-94) 09/05/22 05:23 MCH 31.8 pg (28.0-34.0) 09/05/22 05:23 MCHC 35.2 g/dL (30.0-36.0) 09/05/22 05:23 RDW 12.1 % (12.1-15.1) 09/05/22 05:23 Plt Count 328 10^3/cmm (130-400) 09/05/22 05:23 MPV 9.3 fL (7.4-10.4) 09/05/22 05:23 Neut % (Auto) 90.7 % 09/05/22 05:23 Lymph % (Auto) 6.1 % 09/05/22 05:23 Edmunds % (Auto) 2.5 % 09/05/22 05:23 Eos % (Auto) 0.0 % 09/05/22 05:23 Baso % (Auto) 0.2 % 09/05/22 05:23 Neut # (Auto) 18.48 10^3/uL (1.8-7.7) H 09/05/22 05:23 Lymph # (Auto) 1.2 10^3/uL (0.8-4.8) 09/05/22 05:23 Edmunds # (Auto) 0.5 10^3/uL (0.2-0.9) 09/05/22 05:23 Eos # (Auto) 0.0 10^3/uL (0.0-0.8) 09/05/22 05:23 Baso # (Auto) 0.0 10^3/uL (0.0-0.1) 09/05/22 05:23 Nucleated RBC % (auto) 0 % 09/05/22 05:23 Nucleated RBCs # 0.0 /100WBC 09/05/22 05:23 Sodium 130 mmol/L (136-145) L 09/05/22 05:23 Potassium 2.8 mmol/L (3.5-5.1) L* 09/05/22 05:23 Chloride 88 mmol/L (98-107) L 09/05/22 05:23 Carbon Dioxide 28 mmol/L (22-29) 09/05/22 05:23 Anion Gap 16.8 (5-19) 09/05/22 05:23 BUN 10 mg/dL (6-20) 09/05/22 05:23 Creatinine 0.6 mg/dL (0.7-1.2) L 09/05/22 05:23 GFR Calculation 148.5 mL/min (90-130) H 09/05/22 05:23 Glucose 118 mg/dL (65-115) H 09/05/22 05:23 Calculated Osmolality 270 mOsm/kg (285-295) L 09/05/22 05:23 Calcium 10.0 mg/dL (8.5-10.5) 09/05/22 05:23 Total Bilirubin 1.0 mg/dL (0.15-1.2) 09/05/22 05:23 AST 13 U/L (0-40) 09/05/22 05:23 ALT 8 U/L (0-41) 09/05/22 05:23 Alkaline Phosphatase 118 U/L (40-130) 09/05/22 05:23 C-Reactive Protein 10.7 mg/L (0.0-4.9) H 09/05/22 05:23 Total Protein 7.7 g/dL (6.6-8.7) 09/05/22 05:23 Albumin 4.5 g/dL (3.5-5.2) 09/05/22 05:23 Globulin 3.2 g/dL (1.3-4.6) 09/05/22 05:23 Lipase 28 U/L (13-60) 09/05/22 05:23 Urine Color Yellow (Yellow) 09/05/22 06:28 Urine Appearance Clear (CLEAR) 09/05/22 06:28 Urine pH 9 (5-7) H 09/05/22 06:28 Ur Specific [place] 1.010 (1.005-1.030) 09/05/22 06:28 Urine Protein Neg (Negative) 09/05/22 06:28 Urine Glucose (UA) Norm (Normal) 09/05/22 06:28 Urine Ketones 1+ (Negative) H 09/05/22 06:28 Urine Blood Neg (Negative) 09/05/22 06:28 Urine Nitrate Negative (Negative) 09/05/22 06:28 Urine Bilirubin Neg (Negative) 09/05/22 06:28 Prot Sulfosalicylic Acd Negative (Negative) 09/05/22 06:28 Urine Urobilinogen Norm mg/dL (Negative) 09/05/22 06:28 Ur Leukocyte Esterase Negative (Negative) 09/05/22 06:28 Urine Opiates Screen Positive ng/mL (Negative) H 09/05/22 06:28 Ur Barbiturates Screen Negative ng/mL (Negative) 09/05/22 06:28 Ur Phencyclidine Scrn Negative ng/mL (Negative) 09/05/22 06:28 Ur Amphetamines Screen Negative ng/mL (Negative) 09/05/22 06:28 U Benzodiazepines Scrn Negative ng/mL (Negative) 09/05/22 06:28 Urine Cocaine Screen Negative ng/mL (Negative) 09/05/22 06:28 U Marijuana (THC) Screen Positive ng/mL (Negative) H 09/05/22 06:28 Discharge Plan Discharge Patient Disposition: Home Clinical Impression: Gastroenteritis, Nausea & vomiting Condition: Stable Prescriptions: New promethazine 25 mg tablet 25 mg PO Q6H PRN (Reason: nausea and vomiting) Qty: 20 0RF Discontinued clindamycin HCl 300 mg capsule 300 mg PO Q6H 7 Days Qty: 28 1RF promethazine 50 mg tablet 50 mg PO TID PRN (Reason: nausea and vomiting) Qty: 20 0RF No Action trazodone 50 mg tablet 50 mg PO BEDTIME Qty: 30 0RF levothyroxine 150 mcg tablet See Rx Instructions .ROUTE .COMPLEX Qty: 90 1RF Dose Instruction: TAKE 1 TABLET BY MOUTH EVERY MORNING Rx Instructions: TAKE 1 TABLET BY MOUTH EVERY MORNING tramadol 50 mg tablet 50 mg PO Q6H PRN (Reason: pain) Qty: 14 0RF Discharge Orders: Discharge ED (Routine); Ordered 09/05/22 Ordered By: Channing Connolly Discharge Diet: Clear Liquid Discharge Activity: Increase activity as tolerated Patient Instructions: Opioid Safety, Pain Management Activity Restrictions/Additional Instructions: Promethazine as needed for nausea and vomiting. Clear liquid diet for 24 to 48 hours and advance as tolerated. Sign Out Sign Out Data: Patient Sign Out occurred on 09/05/22 at 08:31. Patient's care was discussed, and care was transferred from to Channing Connolly DO. Coding Level of Care Code ED Therapeutic Specialist for Chg Fwd Exam Comprehensive Documented by User: Channing Connolly DO 09/05/22 11:20 HPI - Abdominal Pain General: Chief Complaint: Abdominal Pain Stated Complaint: N/V Time Seen by Provider: 09/05/22 05:14 [facility] ED PFSH: Medical History Degenerative arthritis Hypothyroidism Seminoma of left testis Surgical History H/O circumcision History of knee surgery (01/2019) Right knee surgery History of surgical removal of testicle (09/25/17) Left radical orchiectomy History of total thyroidectomy (2017) Family History Father Cancer colon cancer Other Hypertension Denies family history of Anesthesia complication Bleeding disorder Social History Smoking and tobacco status: current every day smoker (1.5 ppd) Alcohol intake: current Alcohol intake frequency: holidays/special occasions only Household members: spouse Marital status: Current occupational status: disabled History of recent travel: No Physical Exam Neuro: NIKKI COMA SCALE: document GCS findings [place] coma scale total score: 15 Course Vital Signs: Vital signs: Vital Signs Temperature 97.8 F 09/05/22 05:06 Pulse Rate 59 L 09/05/22 09:00 Respiratory Rate 14 09/05/22 09:00 Blood Pressure 122/76 09/05/22 09:00 Pulse Oximetry 96 09/05/22 09:00 Oxygen Delivery Me thod 09/05/22 09:00 MDM - Abdominal Pain Medical Decision Making Vitals are stable. Patient is afebrile. White blood cell count of 20. 91% neutrophils. He will go for CT. Other laboratory is pending. He will be checked out to Dr. Connolly at shift change pending results. He has 2 L of fluid, antiemetics and pain medication ordered. Patient is feeling much better. Labs and imaging reviewed on the chart. White count is 20,000 I think it is probably more reactionary to the vomiting, he also has hypokalemia he was given potassium supplement in the emergency room. In talking to the patient he uses marijuana every day, and he states as often as he can. Discussed with him that frequent use of marijuana can lead to hyperemesis cannabinoid syndrome and may be likely what is driving some of his symptoms at this time. He is better at this point discharged home with some promethazine and encouraged to decrease or abstain from the use of marijuana products Medical Records I reviewed the patient's medical records. Lab Data I reviewed the patient's lab results. : 09/05/22 05:23 09/05/22 05:23 Labs/Radiology: Radiology Impressions Abdomen/Pelvis CT 09/05/22 05:14 IMPRESSION: 1. Mild ileus versus gastroenteritis or nonspecific enteritis. 2. Mild diffuse fatty infiltration of the liver. 3. Mild lower esophageal thickening suggestive of esophagitis. Laboratory Results WBC 20.4 10^3/uL (4.0-10.0) H 09/05/22 05:23 RBC 5.07 10^6/uL (4.1-5.3) 09/05/22 05:23 Hgb 16.1 g/dL (11.7-16.6) 09/05/22 05:23 Hct 45.8 % (42.0-52.0) 09/05/22 05:23 MCV 90.3 fl (80-94) 09/05/22 05:23 MCH 31.8 pg (28.0-34.0) 09/05/22 05:23 MCHC 35.2 g/dL (30.0-36.0) 09/05/22 05:23 RDW 12.1 % (12.1-15.1) 09/05/22 05:23 Plt Count 328 10^3/cmm (130-400) 09/05/22 05:23 MPV 9.3 fL (7.4-10.4) 09/05/22 05:23 Neut % (Auto) 90.7 % 09/05/22 05:23 Lymph % (Auto) 6.1 % 09/05/22 05:23 Edmunds % (Auto) 2.5 % 09/05/22 05:23 Eos % (Auto) 0.0 % 09/05/22 05:23 Baso % (Auto) 0.2 % 09/05/22 05:23 Neut # (Auto) 18.48 10^3/uL (1.8-7.7) H 09/05/22 05:23 Lymph # (Auto) 1.2 10^3/uL (0.8-4.8) 09/05/22 05:23 Edmunds # (Auto) 0.5 10^3/uL (0.2-0.9) 09/05/22 05:23 Eos # (Auto) 0.0 10^3/uL (0.0-0.8) 09/05/22 05:23 Baso # (Auto) 0.0 10^3/uL (0.0-0.1) 09/05/22 05:23 Nucleated RBC % (auto) 0 % 09/05/22 05:23 Nucleated RBCs # 0.0 /100WBC 09/05/22 05:23 Sodium 130 mmol/L (136-145) L 09/05/22 05:23 Potassium 2.8 mmol/L (3.5-5.1) L* 09/05/22 05:23 Chloride 88 mmol/L (98-107) L 09/05/22 05:23 Carbon Dioxide 28 mmol/L (22-29) 09/05/22 05:23 Anion Gap 16.8 (5-19) 09/05/22 05:23 BUN 10 mg/dL (6-20) 09/05/22 05:23 Creatinine 0.6 mg/dL (0.7-1.2) L 09/05/22 05:23 GFR Calculation 148.5 mL/min (90-130) H 09/05/22 05:23 Glucose 118 mg/dL (65-115) H 09/05/22 05:23 Calculated Osmolality 270 mOsm/kg (285-295) L 09/05/22 05:23 Calcium 10.0 mg/dL (8.5-10.5) 09/05/22 05:23 Total Bilirubin 1.0 mg/dL (0.15-1.2) 09/05/22 05:23 AST 13 U/L (0-40) 09/05/22 05:23 ALT 8 U/L (0-41) 09/05/22 05:23 Alkaline Phosphatase 118 U/L (40-130) 09/05/22 05:23 C-Reactive Protein 10.7 mg/L (0.0-4.9) H 09/05/22 05:23 Total Protein 7.7 g/dL (6.6-8.7) 09/05/22 05:23 Albumin 4.5 g/dL (3.5-5.2) 09/05/22 05:23 Globulin 3.2 g/dL (1.3-4.6) 09/05/22 05:23 Lipase 28 U/L (13-60) 09/05/22 05:23 Urine Color Yellow (Yellow) 09/05/22 06:28 Urine Appearance Clear (CLEAR) 09/05/22 06:28 Urine pH 9 (5-7) H 09/05/22 06:28 Ur Specific [place] 1.010 (1.005-1.030) 09/05/22 06:28 Urine Protein Neg (Negative) 09/05/22 06:28 Urine Glucose (UA) Norm (Normal) 09/05/22 06:28 Urine Ketones 1+ (Negative) H 09/05/22 06:28 Urine Blood Neg (Negative) 09/05/22 06:28 Urine Nitrate Negative (Negative) 09/05/22 06:28 Urine Bilirubin Neg (Negative) 09/05/22 06:28 Prot Sulfosalicylic Acd Negative (Negative) 09/05/22 06:28 Urine Urobilinogen Norm mg/dL (Negative) 09/05/22 06:28 Ur Leukocyte Esterase Negative (Negative) 09/05/22 06:28 Urine Opiates Screen Positive ng/mL (Negative) H 09/05/22 06:28 Ur Barbiturates Screen Negative ng/mL (Negative) 09/05/22 06:28 Ur Phencyclidine Scrn Negative ng/mL (Negative) 09/05/22 06:28 Ur Amphetamines Screen Negative ng/mL (Negative) 09/05/22 06:28 U Benzodiazepines Scrn Negative ng/mL (Negative) 09/05/22 06:28 Urine Cocaine Screen Negative ng/mL (Negative) 09/05/22 06:28 U Marijuana (THC) Screen Positive ng/mL (Negative) H 09/05/22 06:28 Discharge Plan Discharge Patient Disposition: Home Clinical Impression: Gastroenteritis, Nausea & vomiting Condition: Stable Prescriptions: New promethazine 25 mg tablet 25 mg PO Q6H PRN (Reason: nausea and vomiting) Qty: 20 0RF Discontinued clindamycin HCl 300 mg capsule 300 mg PO Q6H 7 Days Qty: 28 1RF promethazine 50 mg tablet 50 mg PO TID PRN (Reason: nausea and vomiting) Qty: 20 0RF No Action trazodone 50 mg tablet 50 mg PO BEDTIME Qty: 30 0RF levothyroxine 150 mcg tablet See Rx Instructions .ROUTE .COMPLEX Qty: 90 1RF Dose Instruction: TAKE 1 TABLET BY MOUTH EVERY MORNING Rx Instructions: TAKE 1 TABLET BY MOUTH EVERY MORNING tramadol 50 mg tablet 50 mg PO Q6H PRN (Reason: pain) Qty: 14 0RF Discharge Orders: Discharge ED (Routine); Ordered 09/05/22 Ordered By: Channing Connolly Discharge Diet: Clear Liquid Discharge Activity: Increase activity as tolerated Patient Instructions: Opioid Safety, Pain Management Activity Restrictions/Additional Instructions: Promethazine as needed for nausea and vomiting. Clear liquid diet for 24 to 48 hours and advance as tolerated. Sign Out Sign Out Data: Patient Sign Out occurred on 09/05/22 at 08:31. Patient's care was discussed, and care was transferred from to Channing L Horstman, DO. Coding Level of Care Code ED Therapeutic Specialist for Chg Fwd Exam Comprehensive
[2022-09-05] MEDS: iohexol 350 mg/mL 500 mL Btl (per mL) IV (05:52)
[2022-09-05 05:58] LABS: Alanine Aminotransferase 8 U/L (0-41); Albumin Level 4.5 g/dL (3.5-5.2); Alkaline Phosphatase 118 U/L (40-130); Anion Gap 16.8 (5-19); Aspartate Amino Transferase 13 U/L (0-40); Blood Urea Nitrogen 10 mg/dL (6-20); C Reactive Protein 10.7 mg/L (0.0-4.9); Carbon Dioxide 28 mmol/L (22-29); Chloride 88 mmol/L (98-107); Globulin 3.2 g/dL (1.3-4.6); Glomerular Filtration Rate 148.5 mL/min (90-130); Glucose 118 mg/dL (65-115); Lipase 28 U/L (13-60); Osmolality Calculated 270 mOsm/kg (285-295); Sodium 130 mmol/L (136-145); Total Protein 7.7 g/dL (6.6-8.7)
[2022-09-05 06:05] LABS: Potassium 2.8 mmol/L (3.5-5.1)
[2022-09-05] MEDS: potassium chloride premix 100 ML 50 MEQ IV (06:24)
[2022-09-05 06:30] VITALS: BP 147/104; PULSE 50; RESP 18; O2SAT 97
[2022-09-05 06:35] LABS: Add Urine Microscopic? NO; Charge for UA Resulting for Rev
[2022-09-05 06:43] VITALS: RESP 18
[2022-09-05 06:43] LABS: Bilirubin Urine Neg (Negative); Blood Urine Neg (Negative); Glucose Urine UA Norm (Normal); Ketones Urine 1+ (Negative); Leukocyte Esterase Urine Negative (Negative); Nitrate Urine Negative (Negative); Protein Urine Neg (Negative); Sulfosalicylic Acid Urine Negative (Negative); Urine Appearance Clear (CLEAR); Urine Color Yellow (Yellow); Urobilinogen Urine Norm (Negative); pH Urine 9 (5-7)
[2022-09-05 06:47] LABS: Amphetamines Screen Urine Negative (Negative); Barbiturates Screen Urine Negative (Negative); Benzodiazepines Screen Urine Negative (Negative); Cocaine Screen Urine Negative (Negative); Opiate Screen Urine Positive (Negative); PCP Screen Urine Negative (Negative); THC Screen Urine Positive (Negative)
[2022-09-05] MEDS: promethazine 25 mg/mL SDV 1 mL IM (08:21)
[2022-09-05 09:00] VITALS: BP 122/76; PULSE 59; RESP 14; O2SAT 96
== END 2022-09-05 10:15 | disposition home or self-care (01) ==
PROVIDERS: Emergency Medicine; Emergency Provider Family Medicine
DX: K52.9 Noninfective gastroenteritis and colitis, unspecified (principal); F17.210 Nicotine dependence, cigarettes, uncomplicated; E87.6 Hypokalemia; F12.90 Cannabis use, unspecified, uncomplicated
CPT/HCPCS: 74177; 80053; 80306; 81003; 83690; 85025; 86140; 96361; 96372; 96374; 96375; 96376; 99285; J1170; J2405; J2550; J3480; J7030; Q9967

== ENCOUNTER → 2023-02-23 13:59 | Outpatient (BNVA) | payer MEDICARE, MEDICAID, SELFPAY | PROVIDERS: Visit Provider Family Medicine | DX: Z80.0 Family history of malignant neoplasm of digestive organs (principal); E87.6 Hypokalemia; K85.90 Acute pancreatitis without necrosis or infection, unspecified; Z76.89 Persons encountering health services in other specified circumstances; E03.9 Hypothyroidism, unspecified; K85.30 Drug induced acute pancreatitis without necrosis or infection | CPT/HCPCS: 80053; 80061; 83690; 83735; 84439; 84443; 85025; 86140 ==